=== PATIENT | female | born 1960 | race Caucasian/White ===

== ENCOUNTER 2016-10-02 22:51 | Emergency (ER) | payer OTHER ==
[~2016-10-02] VITALS: Ht 172.7 cm; Wt 60.0 kg
[~2016-10-02 22:51] MED LIST: AMLO-147 PO; AMLO-218; AMLO-218 PO; BACL10TA PO; BACTDS PO; BUPR100T14 PO; BUSP15TA3 PO; CEPH-443 PO; CITA-100 PO; CLON1TAB3 PO; FER325 PO; GABA300C16 PO; HYD25 PO; LEVE-5 PO; LEVO50TA74 PO; METH10SO PO; METH500T8 PO; QUET300T13 PO
[2016-10-02 22:56] VITALS: Ht 172.7 cm; Wt 60.0 kg
--- NOTE | 2016-10-03 01:00 | ERD ---
ER Documentation Chief Complaint Date/Time DATE: 10/03/16 TIME: 00:59 Chief Complaint body aches, homeless HPI This is a 56-year-old female with a document of body aches. Patient denies any trauma. Denies any fevers or chills. Denies any other current complaints. ROS All systems reviewed and are negative except as per history of present illness. Medications Home Meds Active Scripts Clonazepam* (Clonazepam*) 1 Mg Tablet, 1 MG PO BID Y for ANXIETY, #6 TAB Prov:FELY MARTINEZ MD 07/16/15 Hydrochlorothiazide* (Hydrochlorothiazide*) 25 Mg Tab, 25 MG PO DAILY for 14 Days, TAB Prov:FELY MARTINEZ MD 07/16/15 Levetiracetam* (Keppra*) 500 Mg Tablet, 500 MG PO DAILY for 14 Days, TAB Prov:FELY MARTINEZ MD 07/16/15 Amlodipine Besylate* (Norvasc*) 10 Mg Tablet, 10 MG PO DAILY, #14 TAB Prov:FELY MARTINEZ MD 07/16/15 Cephalexin* (Keflex*) 500 Mg Capsule, 500 MG PO QID for 7 Days, CAP Prov:FELY MARTINEZ MD 07/16/15 Sulfamethoxazole-Trimethoprim* (Bactrim* DS) 800-160 Mg Tab, 1 TAB PO BID for 7 Days, TAB Prov:FELY MARTINEZ MD 07/16/15 Amlodipine Besylate* (Amlodipine Besylate*) 10 Mg Tablet, 10 MG PO DAILY, #10 TAB Prov:IESHA FISH DO 04/21/15 Reported Medications Hydrochlorothiazide* (Hydrochlorothiazide*) 25 Mg Tab, 25 MG PO DAILY, TAB 01/10/15 Methocarbamol* (Methocarbamol*) 500 Mg Tablet, 500 MG PO BID, TAB 01/10/15 Levothyroxine Sodium* (Levothyroxine Sodium*) 50 Mcg Tablet, 50 MCG PO AC BREAKFAST, TAB 01/10/15 Buspirone Hcl* (Buspirone Hcl*) 15 Mg Tablet, 30 MG PO QHS, TAB 01/10/15 Ferrous Sulfate* (Ferrous Sulfate*) 325 Mg Tabec, 325 MG PO BID, TAB 01/10/15 Methadone Hcl* (Methadone Hcl*) 10 Mg/5 Ml Solution, 18 MG PO DAILY, ML 01/10/15 Gabapentin* (Gabapentin*) 300 Mg Capsule, 300 MG PO BID, CAP 01/10/15 Clonazepam* (Clonazepam*) 1 Mg Tablet, 1 MG PO BID Y for ANXIETY, TAB 01/10/15 Bupropion Hcl* (Bupropion Hcl*) 100 Mg Tablet, 100 MG PO BID, TAB 01/10/15 Citalopram Hydrobromide (Celexa) 40 Mg Tablet, 40 MG PO DAILY 02/03/12 Quetiapine Fumarate* (Seroquel*) 300 Mg Tablet, 300 MG PO HS 02/03/12 Baclofen (Lioresal) 10 Mg Tab, 10 MG PO TID 02/03/12 Amlodipine Besylate* (Norvasc*) 10 Mg Tablet, DAILY 10/03/10 Allergies Allergies: Coded Allergies: acetaminophen (Verified Allergy, Unknown, RASH, 04/20/15) haloperidol (Verified Allergy, Unknown, 04/20/15) hydrocodone bit (Verified Allergy, Unknown, RASH, 04/20/15) ketorolac tromethamine (Verified Allergy, Unknown, 04/20/15) PMhx/Soc History of Surgery: Yes (TUBAL LIGATION; RIGHT BREAST LUMPECTOMY) Anesthesia Reaction: No Hx Neurological Disorder: Yes (SEIZURES) Hx Respiratory Disorders: No Hx Cardiac Disorders: Yes (HTN, CVA X2) Hx Psychiatric Problems: No Hx Miscellaneous Medical Probl: No Hx Alcohol Use: No Hx Substance Use: Yes (on methadone) Hx Tobacco Use: No Physical Exam Vitals Vital Signs Date Time Temp Pulse Resp B/P Pulse Ox O2 Delivery O2 Flow Rate FiO2 10/02/16 22:56 97.7 88 20 133/80 99 Physical Exam Const: [] Head: Atraumatic Eyes: Normal Conjunctiva ENT: Normal External Ears, Nose and Mouth. Neck: Full range of motion..~ No meningismus. Resp: Clear to auscultation bilaterally Cardio: Regular rate and rhythm, no murmurs Abd: Soft, non tender, non distended. Normal bowel sounds Skin: No petechiae or rashes Back: No midline or flank tenderness Ext: No cyanosis, or edema Neur: Awake and alert Psych: Normal Mood and Affect Procedures/MDM Medical decision-making: Patient here for myalgias, stable for outpatient management. Patient may discharge home. Departure Diagnosis: Primary Impression: Pain Additional Impression: Myalgia Condition: Stable ELSIE HERNANDES Oct 03, 2016 01:00
[2016-10-03] MEDS ORDERED: TRAM50TA2 PO (01:01)
[2016-10-03 01:13] VITALS: BP 160/93; PULSE 93; RESP 18; TEMP 98
[2016-10-03] MEDS ORDERED: AMLODIPINE 2.5 MG TAB PO ONE (01:30)
[2016-10-03] MEDS ORDERED: morphine 10 MG INJ IM ONE (01:30)
[2016-10-03] MEDS ORDERED: AMLODIPINE 10 MG TAB PO ONE (02:00)
== END 2016-10-03 02:14 | disposition home or self-care (01) ==
LOC: E/R 22:51
DX: M79.1 Myalgia (principal); I10 Essential (primary) hypertension
CPT/HCPCS: 96372; J2270; Z7502; Z7610

== ENCOUNTER 2016-10-25 02:59 | Emergency (ER) | payer OTHER ==
[~2016-10-25] VITALS: Ht 162.6 cm; Wt 60.0 kg
[~2016-10-25 02:59] MED LIST changes: +TRAM50TA2 PO
[2016-10-25 03:05] VITALS: Ht 162.6 cm; Wt 60.0 kg
[2016-10-25] MEDS ORDERED: SOD CHLORIDE 0.9% 500 ML IV STA (04:10)
[2016-10-25 04:43] LABS: ADD SCAN DIFF NO
[2016-10-25 04:48] LABS: BASOPHIL # 0.1 10^3/ul (0.0-0.1); EOSINOPHILS # 0.2 10^3/ul (0.0-0.5); EOSINOPHILS % 3.6 % (0.0-7.0); HEMATOCRIT 29.6 % (37.0-47.0); LYMPHOCYTES # 2.6 10^3/ul (0.8-2.9); LYMPHOCYTES % 42.5 % (15.0-51.0); MEAN CORPUSCULAR HEMOGLOBIN 21.9 pg (29.0-33.0); MEAN CORPUSCULAR HGB CONC 30.4 g/dl (32.0-37.0); MEAN PLATELET VOLUME 10.1 fl (7.4-10.4); MONOCYTE # 0.4 10^3/ul (0.3-0.9); MONOCYTES % 6.1 % (0.0-11.0); NEUTROPHIL # 2.9 10^3/ul (1.6-7.5); NEUTROPHILS % 46.6 % (39.0-77.0); PLATELET COUNT 225 10^3/UL (140-415); RED BLOOD COUNT 4.11 10^6/ul (4.20-5.40); RED CELL DISTRIBUTION WIDTH 15.5 % (11.5-14.5); WHITE BLOOD COUNT 6.1 10^3/ul (4.8-10.8)
[2016-10-25 04:53] LABS: ALBUMIN 3.6 g/dl (3.3-4.9)
[2016-10-25 04:54] LABS: POTASSIUM 4.2 mmol/L (3.5-5.1)
[2016-10-25 04:56] LABS: CREATININE 0.71 mg/dl (0.44-1.00)
[2016-10-25 04:57] LABS: ALBUMIN/GLOBULIN RATIO 0.92; CALCIUM 8.9 mg/dl (8.4-10.2); TOTAL PROTEIN 7.5 g/dl (6.1-8.1)
[2016-10-25] MEDS ORDERED: ACETAMINOPHEN 500 MG TAB PO STA (05:11)
[2016-10-25 05:36] VITALS: TEMP 97.8
--- NOTE | 2016-10-25 05:51 | RADRPT ---
PROCEDURE: XR Abdomen. CLINICAL INDICATION: Diffuse abdominal pain TECHNIQUE: Upright and supine abdominal x-rays were obtained. COMPARISON: None. FINDINGS: The bowel gas pattern is nonobstructive. No definite free air is seen. Probable calcified pelvic ph leboliths. Large colonic stool burden is seen. On the upright view, there is a suggestion of multi ple patchy opacity is throughout both lung martines which may be due to hypoventilation. Cardiomegaly is seen. Degenerative change and rightward scoliosis of the spine. IMPRESSION: Large stool burden. Suggestion of patchy opacities throughout both lung martines. PA and lateral vie ws of the chest would be suggested for further evaluation. RPTAT: [facility] Physician Abdelrahman Date Time Electronically viewed and signed by Goldie Roy Physician on 10/25/2016 05:50 LE/
[2016-10-25] MEDS ORDERED: NAPR-688 PO (06:43)
[2016-10-25] MEDS ORDERED: FER325 PO (06:43)
[2016-10-25] MEDS ORDERED: DOCU-144 PO (06:43)
[2016-10-25] MEDS ORDERED: POLY17PO6 PO (06:43)
[2016-10-25] MEDS ORDERED: MAGN296S40 PO (06:43)
--- NOTE | 2016-10-25 06:55 | RADRPT ---
PROCEDURE: XR Chest. CLINICAL INDICATION: Abnormal lung martines cm abdominal x-ray TECHNIQUE: Portable single view of the chest COMPARISON: 04/19/2014 and abdominal x-rays from earlier today FINDINGS: Reduced lung volumes and cardiomegaly. The aorta is slightly ectatic and tortuous. There is pulmon thiago vascular congestion with increased interstitial markings which may be due to a component of inte rstitial edema. Appearance of some slightly ill-defined rounded opacities throughout both lung fiel ds may be due to some alveolar edema although underlying lung nodules cannot be excluded. Largest o f these nodular opacities is in the right mid lung and measures 9 mm. Old left rib fractures are se en. No pleural effusion is seen. IMPRESSION: Probable at least moderate congestive heart failure. Ill-defined nodular opacities throughout both lung martines not seen previously. While this may be due to infection or alveolar edema, follow-up fi lms to document resolution or CT would be suggested. RPTAT: [facility] Physician Abdelrahman Date Time Electronically viewed and signed by Goldie Roy Physician on 10/25/2016 06:55 LE/
[2016-10-25] MEDS ORDERED: AMLO-218 PO (08:15)
[2016-10-25 08:41] VITALS: BP 128/79; PULSE 72; RESP 18
[2016-11-01] MEDS ORDERED: DOCU-144 PO (20:21)
[2016-11-01] MEDS ORDERED: CLON1TAB3 PO (20:21)
[2016-11-01] MEDS ORDERED: AMLO-218 PO (20:21)
[2016-11-01] MEDS ORDERED: FER325 PO (20:21)
--- NOTE | 2016-11-15 17:01 | ERD ---
ER Documentation Chief Complaint Date/Time DATE: 11/15/16 TIME: 16:59 Chief Complaint bib ambulance diffuse abd pain, homeless HPI Patient is a 56-year-old female who presents with abdominal pain. She is homeless. The abdominal pain has been coming and going over the past few days. The patient came to the emergency department for evaluation. She has not had any treatment as of yet. She is requesting refills of her medications as well. ROS All systems reviewed and are negative except as per history of present illness. Medications Home Meds Active Scripts Docusate Sodium* (Colace*) 100 Mg Capsule, 100 MG PO DAILY, #30 CAP Prov:ETELVINA DOMÍNGUEZ PA-C 11/01/16 Clonazepam* (Clonazepam*) 1 Mg Tablet, 1 MG PO DAILY Y for ANXIETY for 14 Days, TAB Prov:ETELVINA DOMÍNGUEZ PA-C 11/01/16 Ferrous Sulfate* (Ferrous Sulfate*) 325 Mg Tabec, 325 MG PO DAILY for 30 Days, TAB Prov:ETELVINA DOMÍNGUEZ PA-C 11/01/16 Amlodipine Besylate* (Norvasc*) 10 Mg Tablet, 10 MG PO DAILY for 30 Days, TAB Prov:ETELVINA DOMÍNGUEZ PA-C 11/01/16 Amlodipine Besylate* (Norvasc*) 10 Mg Tablet, 10 MG PO DAILY, #30 TAB Prov:GLORIA TILLEY MD 10/25/16 Ferrous Sulfate* (Ferrous Sulfate*) 325 Mg Tabec, 325 MG PO DAILY, #21 TAB Prov:IESHA FISH DO 10/25/16 Naproxen* (Naproxen*) 500 Mg Tablet, 500 MG PO BID, #6 TAB Prov:IESHA FISH DO 10/25/16 Docusate Sodium* (Colace*) 100 Mg Capsule, 100 MG PO TID, #30 CAP Prov:IESHA FISH DO 10/25/16 Polyethylene Glycol* (Miralax*) 17 Gm Powd.pack, 17 GM PO DAILY, #7 Prov:IESHA FISH DO 10/25/16 Magnesium Citrate* (Magnesium Citrate*) 296 Ml Solution, 296 ML PO ONCE, #1 BOTTLE Prov:IESHA FISH DO 10/25/16 Tramadol HCl (Tramadol HCl) 50 Mg Tablet, 50 MG PO Q4 Y for PAIN, #10 TAB Prov:ELSIE HERNANDESRobles 10/03/16 Clonazepam* (Clonazepam*) 1 Mg Tablet, 1 MG PO BID Y for ANXIETY, #6 TAB Prov:FELY MARTINEZ MD 07/16/15 Hydrochlorothiazide* (Hydrochlorothiazide*) 25 Mg Tab, 25 MG PO DAILY for 14 Days, TAB Prov:FELY MARTINEZ MD 07/16/15 Levetiracetam* (Keppra*) 500 Mg Tablet, 500 MG PO DAILY for 14 Days, TAB Prov:FELY MARTINEZ MD 07/16/15 Amlodipine Besylate* (Norvasc*) 10 Mg Tablet, 10 MG PO DAILY, #14 TAB Prov:FELY MARTINEZ MD 07/16/15 Cephalexin* (Keflex*) 500 Mg Capsule, 500 MG PO QID for 7 Days, CAP Prov:FLEY MARTINEZ MD 07/16/15 Sulfamethoxazole-Trimethoprim* (Bactrim* DS) 800-160 Mg Tab, 1 TAB PO BID for 7 Days, TAB Prov:FELY MARTINEZ MD 07/16/15 Amlodipine Besylate* (Amlodipine Besylate*) 10 Mg Tablet, 10 MG PO DAILY, #10 TAB Prov:IESHA FISH DO 04/21/15 Reported Medications Hydrochlorothiazide* (Hydrochlorothiazide*) 25 Mg Tab, 25 MG PO DAILY, TAB 01/10/15 Methocarbamol* (Methocarbamol*) 500 Mg Tablet, 500 MG PO BID, TAB 01/10/15 Levothyroxine Sodium* (Levothyroxine Sodium*) 50 Mcg Tablet, 50 MCG PO AC BREAKFAST, TAB 01/10/15 Buspirone Hcl* (Buspirone Hcl*) 15 Mg Tablet, 30 MG PO QHS, TAB 01/10/15 Ferrous Sulfate* (Ferrous Sulfate*) 325 Mg Tabec, 325 MG PO BID, TAB 01/10/15 Methadone Hcl* (Methadone Hcl*) 10 Mg/5 Ml Solution, 18 MG PO DAILY, ML 01/10/15 Gabapentin* (Gabapentin*) 300 Mg Capsule, 300 MG PO BID, CAP 01/10/15 Clonazepam* (Clonazepam*) 1 Mg Tablet, 1 MG PO BID Y for ANXIETY, TAB 01/10/15 Bupropion Hcl* (Bupropion Hcl*) 100 Mg Tablet, 100 MG PO BID, TAB 01/10/15 Citalopram Hydrobromide (Celexa) 40 Mg Tablet, 40 MG PO DAILY 02/03/12 Quetiapine Fumarate* (Seroquel*) 300 Mg Tablet, 300 MG PO HS 02/03/12 Baclofen (Lioresal) 10 Mg Tab, 10 MG PO TID 02/03/12 Amlodipine Besylate* (Norvasc*) 10 Mg Tablet, DAILY 10/03/10 Allergies Allergies: Coded Allergies: acetaminophen (Verified Allergy, Unknown, RASH, 04/20/15) haloperidol (Verified Allergy, Unknown, 04/20/15) hydrocodone bit (Verified Allergy, Unknown, RASH, 04/20/15) ketorolac tromethamine (Verified Allergy, Unknown, 04/20/15) PMhx/Soc History of Surgery: Yes (TUBAL LIGATION; RIGHT BREAST LUMPECTOMY) Anesthesia Reaction: No Hx Neurological Disorder: Yes (SEIZURES) Hx Respiratory Disorders: No Hx Cardiac Disorders: Yes (HTN, CVA X2) Hx Psychiatric Problems: No Hx Miscellaneous Medical Probl: No (past IV drug abuse) Hx Alcohol Use: No Hx Substance Use: Yes (on methadone) Hx Tobacco Use: No Smoking Status: Never smoker FmHx Family History: No diabetes Physical Exam Physical Exam Const: Mild distress Head: Atraumatic Eyes: Normal Conjunctiva ENT: Normal External Ears, Nose and Mouth. Neck: Full range of motion..~ No meningismus. Resp: Clear to auscultation bilaterally Cardio: Regular rate and rhythm, no murmurs Abd: Soft, diffuse tenderness to palpation without rebound or guarding Skin: No petechiae or rashes Back: No midline or flank tenderness Ext: No cyanosis, or edema Neur: Awake and alert Psych: Normal Mood and Affect Results 24 hrs Laboratory Tests Test 10/25/16 04:30 White Blood Count 6.110^3/ul Red Blood Count 4.1110^6/ul Hemoglobin 9.0g/dl Hematocrit 29.6% Mean Corpuscular Volume 72.0fl Mean Corpuscular Hemoglobin 21.9pg Mean Corpuscular Hemoglobin Concent 30.4g/dl Red Cell Distribution Width 15.5% Platelet Count 21194^3/UL Mean Platelet Volume 10.1fl Neutrophils % 46.6% Lymphocytes % 42.5% Monocytes % 6.1% Eosinophils % 3.6% Basophils % 1.0% Nucleated Red Blood Cells % 0.0/100WBC Neutrophils # 2.910^3/ul Lymphocytes # 2.610^3/ul Monocytes # 0.410^3/ul Eosinophils # 0.210^3/ul Basophils # 0.110^3/ul Nucleated Red Blood Cells # 0.010^3/ul Sodium Level 142mmol/L Potassium Level 4.2mmol/L Chloride Level 103mmol/L Carbon Dioxide Level 31mmol/L Anion Gap 12 Blood Urea Nitrogen 24mg/dl Creatinine 0.71mg/dl Glucose Level 102mg/dl Calcium Level 8.9mg/dl Total Bilirubin 0.0mg/dl Direct Bilirubin 0.00mg/dl Indirect Bilirubin 0.0mg/dl Aspartate Amino Transf (AST/SGOT) 30IU/L Alanine Aminotransferase (ALT/SGPT) 32IU/L Alkaline Phosphatase 78IU/L Total Protein 7.5g/dl Albumin 3.6g/dl Globulin 3.90g/dl Albumin/Globulin Ratio 0.92 Lipase 97U/L Current Medications Medications (Trade) Dose Ordered Sig/Dorina Route PRN Reason Start Time Stop Time Status Last Admin Dose Admin Sodium Chloride (NS) 500 ml @ 500 mls/hr Q1H STAT IV 10/25/16 04:10 10/25/16 05:09 DC 10/25/16 04:37 Acetaminophen (Tylenol Tab) 1,000 mg ONCE STAT PO 10/25/16 05:11 10/25/16 05:12 DC 10/25/16 05:17 Procedures/MDM X-ray of the abdomen shows constipation per radiology. X-ray of the chest shows cardiomegaly per radiology. Patient is a 56-year-old female presents with abdominal pain. She was found to have constipation. At this point I doubt appendicitis, cholecystitis, pancreatitis, or bowel obstruction. I believe outpatient management is appropriate at this time. I do not believe she requires admission the hospital. Her laboratory studies are basically normal other than anemia but she does not require transfusion at this time. The patient will need to follow- up closely with her primary doctor within 24 hours and can return if symptoms worsen. Departure Diagnosis: Primary Impression: Anemia Anemia type: unspecified type Qualified Code: D64.9 - Anemia, unspecified type Additional Impressions: Abdominal pain Abdominal location: generalized Qualified Code: R10.84 - Generalized abdominal pain Constipation Constipation type: unspecified constipation type Qualified Code: K59.00 - Constipation, unspecified constipation type Condition: Stable Patient Instructions: Abdominal Pain, Anemia, Constipation (Adult) Referrals: COUNTS INCLUDE 234 BEDS AT THE [facility] YOU HAVE RECEIVED A MEDICAL SCREENING EXAM AND THE RESULTS INDICATE THAT YOU DO NOT HAVE A CONDITION THAT REQUIRES URGENT TREATMENT IN THE EMERGENCY DEPARTMENT. FURTHER EVALUATION AND TREATMENT OF YOUR CONDITION CAN WAIT UNTIL YOU ARE SEEN IN YOUR DOCTORS OFFICE WITHIN THE NEXT 1-2 DAYS. IT IS YOUR RESPONSIBILITY TO MAKE AN APPOINTMENT FOR FOLOW-UP CARE. IF YOU HAVE A PRIMARY DOCTOR --you should call your primary doctor and schedule an appointment IF YOU DO NOT HAVE A PRIMARY DOCTOR YOU CAN CALL OUR PHYSICIAN REFERRAL HOTLINE AT IF YOU CAN NOT AFFORD TO SEE A PHYSICIAN YOU CAN CHOSE FROM THE FOLLOWING [facility] [address] [facility] [address] [facility] [address] [facility] [address] [facility] [address] [facility] [facility] [address] [facility]. [facility] YOU HAVE RECEIVED A MEDICAL SCREENING EXAM AND THE RESULTS INDICATE THAT YOU DO NOT HAVE A CONDITION THAT REQUIRES URGENT TREATMENT IN THE EMERGENCY DEPARTMENT. FURTHER EVALUATION AND TREATMENT OF YOUR CONDITION CAN WAIT UNTIL YOU ARE SEEN IN YOUR DOCTORS OFFICE WITHIN THE NEXT 1-2 DAYS. IT IS YOUR RESPONSIBILITY TO MAKE AN APPOINTMENT FOR FOLOW-UP CARE. IF YOU HAVE A PRIMARY DOCTOR --you should call your primary doctor and schedule and appointment IF YOU DO NOT HAVE A PRIMARY DOCTOR YOU CAN CALL OUR PHYSICIAN REFERRAL HOTLINE AT . IF YOU CAN NOT AFFORD TO SEE A PHYSICIAN YOU CAN CHOSE FROM THE FOLLOWING [facility] INSTITUTIONS: [facility] [address] [place] [address] [facility] [address] [place] [address] [facility] [address] [place] [address] Additional Instructions: Call your primary care doctor TOMORROW for an appointment during the next 2-3 days.See the doctor sooner or return here if your condition worsens before your appointment time. GLORIA TILLEY MD Nov 15, 2016 17:01
== END 2016-10-25 08:43 | disposition home or self-care (01) ==
LOC: E/R 02:59
DX: D64.9 Anemia, unspecified (principal); R10.84 Generalized abdominal pain; K59.00 Constipation, unspecified; I10 Essential (primary) hypertension
CPT/HCPCS: 36415; 71010; 74010; 80053; 83690; 85025; J7040; Z7502; Z7610

== ENCOUNTER → 2016-10-29 | Emergency (ER) | payer SELFPAY ==
[~2016-10-29] VITALS: Wt 62.0 kg
[~2016-10-29] MED LIST changes: +DOCU-144 PO; +MAGN296S40 PO; +NAPR-688 PO; +POLY17PO6 PO
== END | disposition left against medical advice (07) ==
LOC: E/R 12:48
DX: Z53.21 Procedure and treatment not carried out due to patient leaving prior to being seen by health care provider (principal)

== ENCOUNTER → 2016-11-01 | Emergency (ER) | payer OTHER ==
[~2016-11-01] VITALS: Ht 157.5 cm; Wt 54.0 kg
[~2016-11-01] MED LIST changes: +AMLODIPINE 10 MG TAB PO ONE; +IBUPROFEN 600 MG TAB PO ONE
[2016-11-01 16:12] VITALS: Ht 157.5 cm; Wt 54.0 kg
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
--- NOTE | 2016-11-01 19:57 | RADRPT ---
PROCEDURE: XR Hand. CLINICAL INDICATION: Pain, trauma. TECHNIQUE: Three views of the right hand were obtained. COMPARISON: No prior studies are available for comparison. FINDINGS: There is no acute fracture or dislocation. Query prior postsurgical changes of the trapezium resect ion with cortical irregularity and osseous spurring at the base of the first metacarpal, trapezoid, and scaphoid. There is joint space narrowing with osseous spurring within the scaphoid articulation with the trapezoid as well as at the second carpometacarpal joint. There is also osseous spurring within the fifth carpometacarpal joint. There is increased flexion at the third proximal interphalangeal joint. There is also osseous spurr ing and joint space narrowing within the fifth proximal interphalangeal joint. IMPRESSION: 1. Postsurgical changes suggestive of resection of the trapezium with degenerative changes at the t riscaphe joint and second carpometacarpal joint. 2. Increased flexion at the third proximal interphalangeal joint. 3. Degenerative changes within the fifth proximal interphalangeal joint. 4. No acute fracture. .Kylah Aviles MD, MD Date Time Electronically viewed and signed by .Kylah Aviles MD, on 11/01/2016 20:01 .T/
[2016-11-01 21:01] VITALS: BP 165/110; PULSE 87; RESP 18; TEMP 98.7
== END | disposition home or self-care (01) ==
LOC: FTE 15:53
DX: R51 Headache (principal); I10 Essential (primary) hypertension; F11.20 Opioid dependence, uncomplicated; G40.909 Epilepsy, unspecified, not intractable, without status epilepticus; S69.91XA Unspecified injury of right wrist, hand and finger(s), initial encounter; M19.041 Primary osteoarthritis, right hand; D50.9 Iron deficiency anemia, unspecified; W50.0XXA Accidental hit or strike by another person, initial encounter; Y92.89 Other specified places as the place of occurrence of the external cause; Z76.0 Encounter for issue of repeat prescription
CPT/HCPCS: 73130; Z7502; Z7610

== ENCOUNTER 2016-11-18 02:29 | Emergency (ER) | payer OTHER ==
[~2016-11-18] VITALS: Ht 154.9 cm; Wt 46.3 kg
[~2016-11-18 02:29] MED LIST changes: -AMLODIPINE 10 MG TAB PO ONE; -IBUPROFEN 600 MG TAB PO ONE
[2016-11-18 02:48] VITALS: Ht 154.9 cm; Wt 46.3 kg
[2016-11-18] MEDS ORDERED: KETOROLAC 60 MG INJ IM STA (02:57)
[2016-11-18] MEDS ORDERED: NAPR-688 PO (03:34)
[2016-11-18] MEDS ORDERED: METH500T PO (03:34)
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
[2016-11-18 05:08] VITALS: BP 161/107; PULSE 97; RESP 20
== END 2016-11-18 05:26 | disposition home or self-care (01) ==
LOC: E/R 02:29
DX: S30.0XXA Contusion of lower back and pelvis, initial encounter (principal); I10 Essential (primary) hypertension; X58.XXXA Exposure to other specified factors, initial encounter; Y92.9 Unspecified place or not applicable; Z87.891 Personal history of nicotine dependence
CPT/HCPCS: 96372; J1885; Z7502

== ENCOUNTER 2017-01-02 14:46 | Emergency (ER) | payer OTHER ==
[~2017-01-02] VITALS: Wt 55.0 kg
[~2017-01-02 14:46] MED LIST changes: +METH500T PO
[2017-01-02] MEDS ORDERED: OLANZAPINE (ODT) 5 MG TAB ODT ONE (15:30)
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
== END 2017-01-02 15:23 | disposition left against medical advice (07) ==
LOC: E/R 14:46
DX: R10.84 Generalized abdominal pain (principal); I10 Essential (primary) hypertension; I25.10 Atherosclerotic heart disease of native coronary artery without angina pectoris; T74.21XA Adult sexual abuse, confirmed, initial encounter

== ENCOUNTER 2017-01-03 14:45 | Emergency (ER) | payer OTHER ==
[~2017-01-03] VITALS: Ht 149.9 cm; Wt 64.0 kg
[2017-01-03 14:54] VITALS: Ht 149.9 cm; Wt 64.0 kg
[2017-01-03 15:56] VITALS: BP 194/113; PULSE 88; RESP 18
[2017-01-03] MEDS ORDERED: NICARDipine HCL 30 MG CAPSULE PO ONE (16:00)
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
== END 2017-01-03 16:05 | disposition home or self-care (01) ==
LOC: E/R 14:45
DX: I10 Essential (primary) hypertension (principal)
CPT/HCPCS: Z7502; Z7610; 99283

== ENCOUNTER 2017-05-05 16:29 | Emergency (ER) | payer OTHER ==
[~2017-05-05] VITALS: Ht 152.4 cm; Wt 67.0 kg
[2017-05-05 16:33] VITALS: Ht 152.4 cm; Wt 67.0 kg
[2017-05-05] MEDS ORDERED: CLON-412 PO (18:29)
[2017-05-05] MEDS ORDERED: GABA300C PO (18:29)
[2017-05-05] MEDS ORDERED: AMLO5TAB4 PO (18:29)
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
== END 2017-05-05 19:07 | disposition home or self-care (01) ==
LOC: E/R 16:29
DX: Z76.0 Encounter for issue of repeat prescription (principal); I10 Essential (primary) hypertension
CPT/HCPCS: 99281

== ENCOUNTER 2017-05-09 22:56 | Emergency (ER) | payer OTHER ==
[~2017-05-09] VITALS: Ht 167.6 cm; Wt 68.0 kg
[~2017-05-09 22:56] MED LIST changes: +AMLO5TAB4 PO; +CLON-412 PO; +GABA300C PO; -HYD25 PO; +HYDR25TA6 PO
[2017-05-09 23:05] VITALS: Ht 167.6 cm; Wt 68.0 kg
[2017-05-10 01:00] VITALS: BP 149/100; PULSE 82; RESP 18; TEMP 98.1
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
[2017-05-10] MEDS ORDERED: IBUP-1542 PO (01:48)
[2017-05-10] MEDS ORDERED: IBUPROFEN 600 MG TAB PO ONE (02:00)
[2017-05-10] MEDS ORDERED: HYDR25TA6 PO (12:50)
== END 2017-05-10 02:20 | disposition home or self-care (01) ==
LOC: E/R 22:56
DX: M79.1 Myalgia (principal); I10 Essential (primary) hypertension; F17.210 Nicotine dependence, cigarettes, uncomplicated
CPT/HCPCS: Z7502; Z7610; 99283

== ENCOUNTER 2017-05-10 11:06 | Emergency (ER) | payer OTHER ==
[~2017-05-10] VITALS: Wt 68.0 kg
[~2017-05-10 11:06] MED LIST changes: +HYD25 PO; -HYDR25TA6 PO; +IBUP-1542 PO
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
--- NOTE | 2017-05-10 12:16 | RADRPT ---
PROCEDURE: CT brain without contrast CLINICAL INDICATION: head trauma/injury TECHNIQUE: CT of the brain without contrast performed on a multidetector CT scanner, with multiplan ar reformats. One or more of the following dose reduction techniques were used: Automated exposure control, adjustment in mA and / or kV according to patient size, use of iterative reconstructive arleen hnique. CTDIvol = 45/42 mGy; DLP = 90/540 mGy-cm. COMPARISON: CT brain 11/20/2015 FINDINGS: Patient motion related artifacts mildly limit evaluation. No acute intracranial hemorrhage is identi fied. No extra-axial fluid collection is seen. There is no mass effect. No midline shift is identified. The ventricles and sulci are mildly enlarged compatible with volume loss. There are mild areas of hypodensity in the periventricular - deep white matter which are nonspecific but suggestive of chronic small vessel ischemic changes. Visualized arauz-white junctions appear pre served. Calvarium and skull base are intact. Mastoid air cells and imaged paranasal sinuses grossly clear. IMPRESSION: 1. Mildly limited evaluation due to motion, without acute intracranial pathology identified. 2. Mild volume loss, with mild chronic small vessel ischemic changes. RPTAT: VV .Link Torres MD, MD Date Time Electronically viewed and signed by .Link Torres MD, MD on 05/10/2017 12:16 .O/
[2017-05-10] MEDS ORDERED: HYD25 PO (12:50)
[2017-05-10] MEDS ORDERED: ACETAMINOPHEN 325 MG TAB PO ONE (13:00)
== END 2017-05-10 14:23 | disposition home or self-care (01) ==
LOC: E/R 11:06
DX: S09.90XA Unspecified injury of head, initial encounter (principal); I10 Essential (primary) hypertension; R93.0 Abnormal findings on diagnostic imaging of skull and head, not elsewhere classified; R40.2142 Coma scale, eyes open, spontaneous, at arrival to emergency department; R40.2252 Coma scale, best verbal response, oriented, at arrival to emergency department; R40.2362 Coma scale, best motor response, obeys commands, at arrival to emergency department; Y04.8XXA Assault by other bodily force, initial encounter
CPT/HCPCS: 70450; Z7502; Z7610

== ENCOUNTER 2017-05-17 17:22 | Emergency (ER) | payer SELFPAY ==
[~2017-05-17] VITALS: Wt 65.0 kg
[~2017-05-17 17:22] MED LIST changes: -HYD25 PO; +HYDR25TA6 PO
== END 2017-05-17 22:17 | disposition left against medical advice (07) ==
LOC: E/R 17:22
DX: Z53.21 Procedure and treatment not carried out due to patient leaving prior to being seen by health care provider (principal)

== ENCOUNTER 2017-05-20 11:34 | Inpatient (IN) | payer OTHER ==
[~2017-05-20] VITALS: Ht 157.5 cm; Wt 59.0 kg
--- NOTE | 2017-05-20 14:10 | ERA ---
ER Documentation Chief Complaint Date/Time DATE: 05/20/17 TIME: On arrival Chief Complaint ALOC HPI The patient is a 57-year-old female, presenting to the ER from [facility] pharmacy because she was found to have altered level of consciousness. She is somnolent but arousable, complains of abdominal pain. She is a very poor historian. 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 Past medical history: Seizure disorder, hypertension, history of CVA Past surgical history: Tubal ligation, right breast lumpectomy ROS All systems reviewed and are negative except as per history of present illness. Medications Home Meds Active Scripts Hydrochlorothiazide* (Hydrochlorothiazide*) 25 Mg Tab, 25 MG PO DAILY, #30 TAB Prov:FELY MARTINEZ MD 05/10/17 Ibuprofen* (Motrin*) 600 Mg Tab, 600 MG PO Q6H Y for PAIN, #20 TAB Prov:DARRYL MCCANN MD 05/10/17 Gabapentin* (Neurontin*) 300 Mg Capsule, 300 MG PO DAILY for 30 Days, CAP Prov:FELY MARTINEZ MD 05/05/17 Clonazepam* (Klonopin*) 1 Mg Tablet, 1 MG PO Q8H Y for ANXIETY, #10 TAB Prov:FELY MARTINEZ MD 05/05/17 Amlodipine Besylate* (Norvasc*) 5 Mg Tablet, 10 MG PO DAILY, #60 TAB Prov:FELY MARTINEZ MD 05/05/17 Discontinued Reported Medications Hydrochlorothiazide* (Hydrochlorothiazide*) 25 Mg Tab, 25 MG PO DAILY, TAB 01/10/15 Methocarbamol* (Methocarbamol*) 500 Mg Tablet, 500 MG PO BID, TAB 01/10/15 Levothyroxine Sodium* (Levothyroxine Sodium*) 50 Mcg Tablet, 50 MCG PO AC BREAKFAST, TAB 01/10/15 Buspirone Hcl* (Buspirone Hcl*) 15 Mg Tablet, 30 MG PO QHS, TAB 01/10/15 Ferrous Sulfate* (Ferrous Sulfate*) 325 Mg Tabec, 325 MG PO BID, TAB 01/10/15 Methadone Hcl* (Methadone Hcl*) 10 Mg/5 Ml Solution, 18 MG PO DAILY, ML 5/18/15 Gabapentin* (Gabapentin*) 300 Mg Capsule, 300 MG PO BID, CAP 01/10/15 Clonazepam* (Clonazepam*) 1 Mg Tablet, 1 MG PO BID Y for ANXIETY, TAB 01/10/15 Bupropion Hcl* (Bupropion Hcl*) 100 Mg Tablet, 100 MG PO BID, TAB 01/10/15 Citalopram Hydrobromide (Celexa) 40 Mg Tablet, 40 MG PO DAILY 02/03/12 Quetiapine Fumarate* (Seroquel*) 300 Mg Tablet, 300 MG PO HS 02/03/12 Baclofen (Lioresal) 10 Mg Tab, 10 MG PO TID 02/03/12 Amlodipine Besylate* (Norvasc*) 10 Mg Tablet, DAILY 10/03/10 Discontinued Scripts Naproxen* (Naproxen*) 500 Mg Tablet, 500 MG PO BID Y for PAIN, #14 TAB Prov:ABEIESHA DO 11/18/16 Methocarbamol* (Robaxin*) 500 Mg Tab, 500 MG PO Q8, #14 TAB Prov:IESHA FISH DO 11/18/16 Docusate Sodium* (Colace*) 100 Mg Capsule, 100 MG PO DAILY, #30 CAP Prov:ETELVINA DOMÍNGUEZC 11/01/16 Clonazepam* (Clonazepam*) 1 Mg Tablet, 1 MG PO DAILY Y for ANXIETY for 14 Days, TAB Prov:ETELVINA DOMÍNGUEZC 11/01/16 Ferrous Sulfate* (Ferrous Sulfate*) 325 Mg Tabec, 325 MG PO DAILY for 30 Days, TAB Prov:ETELVINA DOMÍNGUEZC 11/01/16 Amlodipine Besylate* (Norvasc*) 10 Mg Tablet, 10 MG PO DAILY for 30 Days, TAB Prov:ETELVINA DOMÍNGUEZ-C 11/01/16 Amlodipine Besylate* (Norvasc*) 10 Mg Tablet, 10 MG PO DAILY, #30 TAB Prov:GLORIA TILLEY MD 10/25/16 Ferrous Sulfate* (Ferrous Sulfate*) 325 Mg Tabec, 325 MG PO DAILY, #21 TAB Prov:IESHA FISH DO 10/25/16 Naproxen* (Naproxen*) 500 Mg Tablet, 500 MG PO BID, #6 TAB Prov:IESHA FISH DO 10/25/16 Docusate Sodium* (Colace*) 100 Mg Capsule, 100 MG PO TID, #30 CAP Prov:IESHA FISH DO 10/25/16 Polyethylene Glycol* (Miralax*) 17 Gm Powd.pack, 17 GM PO DAILY, #7 Prov:IESHA FISH DO 10/25/16 Magnesium Citrate* (Magnesium Citrate*) 296 Ml Solution, 296 ML PO ONCE, #1 BOTTLE Prov:IESHA FISH 10/25/16 Tramadol HCl (Tramadol HCl) 50 Mg Tablet, 50 MG PO Q4 Y for PAIN, #10 TAB Prov:ELSIE HERNANDES 10/03/16 Clonazepam* (Clonazepam*) 1 Mg Tablet, 1 MG PO BID Y for ANXIETY, #6 TAB Prov:FELY MARTINEZ MD 07/16/15 Hydrochlorothiazide* (Hydrochlorothiazide*) 25 Mg Tab, 25 MG PO DAILY for 14 Days, TAB Prov:FELY MARTINEZ MD 07/16/15 Levetiracetam* (Keppra*) 500 Mg Tablet, 500 MG PO DAILY for 14 Days, TAB Prov:FELY MARTINEZ MD 07/16/15 Amlodipine Besylate* (Norvasc*) 10 Mg Tablet, 10 MG PO DAILY, #14 TAB Prov:FELY MARTINEZ MD 07/16/15 Cephalexin* (Keflex*) 500 Mg Capsule, 500 MG PO QID for 7 Days, CAP Prov:FELY MARTINEZ MD 07/16/15 Sulfamethoxazole-Trimethoprim* (Bactrim* DS) 800-160 Mg Tab, 1 TAB PO BID for 7 Days, TAB Prov:FELY MARTINEZ MD 07/16/15 Amlodipine Besylate* (Amlodipine Besylate*) 10 Mg Tablet, 10 MG PO DAILY, #10 TAB Prov:IESHA FISH 04/21/15 Allergies Allergies: Coded Allergies: acetaminophen (Verified Allergy, Unknown, RASH, 04/20/15) haloperidol (Verified Allergy, Unknown, 04/20/15) hydrocodone bit (Verified Allergy, Unknown, RASH, 04/20/15) ketorolac tromethamine (Verified Allergy, Unknown, 04/20/15) PMhx/Soc History of Surgery: No Anesthesia Reaction: No Hx Neurological Disorder: No Hx Respiratory Disorders: No Hx Cardiac Disorders: No Hx Psychiatric Problems: No Hx Miscellaneous Medical Probl: No Hx Alcohol Use: No Hx Substance Use: No Hx Tobacco Use: No Physical Exam Vitals Vital Signs Date Time Temp Pulse Resp B/P Pulse Ox O2 Delivery O2 Flow Rate FiO2 05/20/17 15:31 72 14 152/110 96 Room Air Physical Exam Const: No acute distress.Somnolent Head: Atraumatic. Eyes: Normal Conjunctiva. ENT: Normal External Ears, Nose and Mouth. Neck: Full range of motion. No meningismus. Resp: Clear to auscultation bilaterally.Tachypneic Cardio: Regular Tachycardic Abd: Soft, non distended, normal bowel sounds, non tender. Skin: No petechiae or rashes. Back: No midline or flank tenderness. Ext: No cyanosis, or edema. Neur: Limited due to her condition Psych: Unable to perform due to her condition Results 24 hrs Laboratory Tests Test 05/20/17 14:50 Lactic Acid Level 1.1mmol/L Current Medications Medications (Trade) Dose Ordered Sig/Dorina Route PRN Reason Start Time Stop Time Status Last Admin Dose Admin Vancomycin HCl (Vancocin) 250 ml @ 125 mls/hr ONCE IVPB 05/20/17 15:00 05/20/17 16:59 05/20/17 14:49 Procedures/MDM Urinalysis, lactate, urine drug screens are pending EKG: Read by emergency physician Rate/Rhythm: Normal Sinus Rhythm 84 beats/min QRS, ST, T-waves: No ST elevation, no T inversion , Prolonged QT Impression: Abnormal EKG PROCEDURE: XR Chest. CLINICAL INDICATION: Altered mental status. TECHNIQUE: Single frontal view. COMPARISON: None. FINDINGS: There is mild patchy air space disease bilaterally in the mid and lower lung zones. The lungs are otherwise clear. The heart is enlarged. There is no pleural effusion. There is no pneumothorax. IMPRESSION: 1. Mild patchy air space disease bilaterally in the mid and lower lung zones. This may indicate multifocal pneumonia. Clinical correlation advised. 2. Cardiomegaly. RPTAT: QQ .Marky Borden MD, MD Date Time Electronically viewed and signed by .Marky Borden MD, on 05/20/2017 12:19 .R/ CC: DARRYL MCCANN MD PROCEDURE: CT Brain without contrast. CLINICAL INDICATION: Altered mental status TECHNIQUE: A CT of the brain was performed on a multidetector CT scanner utilizing axial sections from the skull base through the vertex without contrast. Images were reviewed on a high-resolution PACS workstation. Exam CTDI = 44.77 mGy and the DLP = 630.20 mGy-cm. One or more of the following dose reduction techniques were used: Automated exposure control Adjustment of the mA and/or kV according to patient size. Use of iterative reconstruction technique. COMPARISON: None available FINDINGS: Mild diffuse cerebral and cerebellar atrophy is present. There is proportionate dilatation of the ventricular system and sulci in a symmetric fashion. There is prominence of the extraaxial spaces secondary to atrophy. There is no evidence of intracranial hemorrhage, mass effect or midline shift. There is age indeterminate hypoattenuation in the right lentiform nucleus. No abnormal intra-axial or extra-axial fluid collections are seen. The density of the brain is normal and the arauz/white matter differentiation is well preserved. The osseous structures are unremarkable. Paranasal sinuses are clear. IMPRESSION: 1. No intracranial hemorrhage, mass effect or midline shift. 2. Age indeterminate hypoattenuation in the right lentiform nucleus. Recommend MRI brain for further evaluation. 3. Mild generalized volume loss. RPTAT: BB .Jessica Moran MD, MD Date Time Electronically viewed and signed by .Jessica Moran MD, on 05/20/2017 13:16 .O/ CC: DARRYL MCCANN MD PROCEDURE: CT Abdomen and Pelvis without intravenous contrast. CLINICAL INDICATION: Abdominal pain . TECHNIQUE: CT scan of the abdomen and pelvis without intravenous contrast was performed on a multi-slice CT scanner. Coronal and sagittal reformatted images were obtained from the axial source images. Images were reviewed on a high- resolution PACS workstation. Total DLP = 571.4 mGy-cm. CTDIvol = 9.9 mGy. One or more of the following dose reduction techniques were used: Automated exposure control. Adjustment of the mA and/or kV according to patient size. Use of iterative reconstruction technique. COMPARISON: None. FINDINGS: CT abdomen and pelvis: The lung bases are clear. The heart size mildly enlarged. The liver is normal in size and density without focal mass or intrahepatic biliary dilatation. The spleen is normal in size and homogeneous in density. The pancreas as visualized is normal. The gallbladder shows no evidence of stones or distension . The adrenal glands are normal. The kidneys are symmetrically unremarkable. No urolithiasis, obstructive uropathy, or solid mass lesion is seen. The stomach is partially collapsed, but is grossly unremarkable. The small bowels are unremarkable. The colon and rectum are normal. There is mild retained feces throughout the colon. There is no evidence of appendicitis or diverticulitis. The pelvic organs are normal. The bladder is normal. There is no abdominal or pelvic adenopathy, free fluid, free air, mass or mesenteric inflammation. The aorta is normal in caliber with calcific atherosclerosis . The osseous structures showing scoliosis and degenerative enthesopathy of the spine. No osteolytic or osteoblastic lesions are identified. There is old healed fracture of the left pubic bone. No osteolytic or osteoblastic lesions are seen.. Lack of IV and oral contrast, paucity of peritoneal fat, and patient's arms overlying the anterior abdomen limits sensitivity of exam. IMPRESSION: 1. Mild cardiomegaly. 2. Retained feces throughout colon suggesting constipation. 3. Scoliosis and degenerative enthesopathy of the spine. 4. Otherwise unremarkable noncontrast CT abdomen and pelvis without acute pathology identified with multiple factors limiting sensitivity as described above.. RPTAT: GG .Russ Zendejas MD, Date Time Electronically viewed and signed by .Russ Zendejas MD, on 05/20/2017 13:54 .L/ CC: DARRYL MCCANN MD MEDICAL MAKING DECISION: The patient is a 57-year-old female, presenting with acute encephalopathy, acute pneumonia, acute hypokalemia. She was treated with vancomycin IV, cefepime IV for acute pneumonia and potassium chloride 40 mEq IV for acute hypokalemia with good response The differential diagnoses considered include but are not limited to medication non-compliance, alcohol intoxication or withdrawal, drug intoxication or withdrawal, endocrine disorder, trauma, CVA, tumor, metabolic encephalopathy, septic encephalopathy. Critical Care: Time: 35 minutes excluding all billable procedures. Treatments/Evaluations: Close monitoring and treatment of unstable vital signs, cardiorespiratory, and neurologic status, while maintaining tight balance of fluid, respiratory, and cardiac interventions. Departure Diagnosis: Primary Impression: Encephalopathy Additional Impressions: Pneumonia Acute hypokalemia Condition: Stable Comments I discussed the findings with the patient. I discussed the patient with the on- call hospitalist Dr. Castanon at 3:50 PM who was made aware of the lab, the treatment , the patient condition. The patient is admitted to Telemetry The patient's blood pressure was elevated (>120/80) but appears stable without evidence of hypertension emergency or urgency. The patient was counseled about the risks of hypertension and urged to pursue outpatient monitoring and therapy within a week with their primary care physician. DARRYL MCCANN MD May 20, 2017 14:10
[2017-05-20] MEDS ORDERED: VANCOMYCIN 1 GM (PMX) 250 ML IVPB SCH ×2 (15:00→19:30)
[2017-05-20 16:35] LABS: BASOPHIL # 0.1 10^3/ul (0.0-0.1); EOSINOPHILS # 0.3 10^3/ul (0.0-0.5); HEMATOCRIT 29.5 % (37.0-47.0); HEMOGLOBIN 9.2 g/dl (12.0-16.0); LYMPHOCYTES # 1.8 10^3/ul (0.8-2.9); LYMPHOCYTES % 36.3 % (15.0-51.0); MEAN CORPUSCULAR HEMOGLOBIN 22.3 pg (29.0-33.0); MEAN CORPUSCULAR HGB CONC 31.2 g/dl (32.0-37.0); MEAN CORPUSCULAR VOLUME 71.6 fl (82.0-101.0); MEAN PLATELET VOLUME 9.1 fl (7.4-10.4); MONOCYTE # 0.3 10^3/ul (0.3-0.9); MONOCYTES % 5.6 % (0.0-11.0); NEUTROPHIL # 2.6 10^3/ul (1.6-7.5); NEUTROPHILS % 51.7 % (39.0-77.0); PLATELET COUNT 196 10^3/UL (140-415); RED BLOOD COUNT 4.12 10^6/ul (4.20-5.40); RED CELL DISTRIBUTION WIDTH 15.9 % (11.5-14.5)
[2017-05-20 16:50] LABS: INR 1.12; PROTIME 14.4 Sec (12.2-14.2); PT RATIO 1.1
[2017-05-20 16:51] LABS: PARTIAL THROMBOPLASTIN TIME 27.9 Sec (25.0-35.0)
[2017-05-20 16:54] LABS: ALANINE AMINOTRANSFERASE 35 IU/L (13-69); ALBUMIN 3.9 g/dl (3.3-4.9); ALBUMIN/GLOBULIN RATIO 1.25; ALKALINE PHOSPHATASE 80 IU/L (42-121); ASPARTATE AMINO TRANSFERASE 22 IU/L (15-46); BILIRUBIN,INDIRECT 0.3 mg/dl (0-1.1); BILIRUBIN,TOTAL 0.3 mg/dl (0.2-1.3); BLOOD UREA NITROGEN 14 mg/dl (7-20); CALCIUM 9.1 mg/dl (8.4-10.2); CREATININE 0.62 mg/dl (0.44-1.00); GLUCOSE 111 mg/dl (70-220)
[2017-05-20 16:55] LABS: ACETAMINOPHEN < 10.0 ug/ml (10.0-30.0); SALICYLATE < 1.0 mg/dl (5.0-30.0)
[2017-05-20 16:57] LABS: ANION GAP 10 (8-16); CARBON DIOXIDE 27 mmol/L (21-31); CHLORIDE 105 mmol/L (97-110)
[2017-05-20 17:09] LABS: SODIUM 139 mmol/L (135-144)
[2017-05-20 17:10] LABS: ETHANOL < 10.0 mg/dl
[2017-05-20 18:07] LABS: ADD UMIC YES; UR ASCORBIC ACID NEGATIVE (NEGATIVE); UR BILIRUBIN (Dip) NEGATIVE (NEGATIVE); UR BLOOD (Dip) 1+ mg/dL (NEGATIVE); UR CLARITY CLEAR (CLEAR); UR COLOR STRAW (YELLOW); UR GLUCOSE (Dip) NEGATIVE (NEGATIVE); UR KETONES (Dip) NEGATIVE (NEGATIVE); UR LEUKOCYTE ESTERASE (Dip) NEGATIVE Leu/ul (NEGATIVE); UR NITRITE (Dip) NEGATIVE (NEGATIVE); UR RBC 0 /HPF (0-5); UR SQUAMOUS EPITHELIAL CELL FEW /HPF (FEW); UR TOTAL PROTEIN (Dip) NEGATIVE (NEGATIVE); UR UROBILINOGEN (Dip) NEGATIVE (NEGATIVE)
[2017-05-20 18:33] LABS: BARBITURATES Negative (NEGATIVE); BENZODIAZEPINES Negative (NEGATIVE); CANNABINOIDS Negative (NEGATIVE); COCAINE Negative (NEGATIVE); OPIATES Negative (NEGATIVE)
[2017-05-20] MEDS ORDERED: ONDANSETRON 4 MG INJ IV PRN (19:00)
[2017-05-20] MEDS ORDERED: NACL 0.9% 3 ML SYG IV SCH (19:00)
[2017-05-20] MEDS ORDERED: hydrALAzine 20 MG INJ IV PRN (19:00)
[2017-05-20] MEDS ORDERED: HYDROCODONE/APAP (5/325) TAB PO PRN (19:00)
[2017-05-20] MEDS ORDERED: LACTULOSE 30ML CUP PO ONE (19:00)
[2017-05-20] MEDS ORDERED: LORAZEPAM 2 MG INJ IV PRN (19:00)
--- NOTE | 2017-05-20 19:51 | HP ---
Date/Time of Note Date/Time of Note DATE: 05/20/17 TIME: 19:44 Assessment/Plan VTE Prophylaxis VTE Prophylaxis Intervention: SCD's Assessment/Plan Chief Complaint/Hosp Course Patient is a 57-year-old female with a past medical history of IV drug abuse, hepatitis B, hepatitis C, cirrhosis, hypertension and epilepsy who presents to [facility] for altered mental status, found to be within normal limits and suspect likely seizure Altered mental status, resolved Seizures Elevated ammonia Hypertensive urgency, emergency Methamphetamine use Hepatitis B Hepatitis C Questionable multifocal pneumonia Anxiety Mood disorder Hypertension History of breast cancer Plan -Neurology has been consulted for breakthrough seizures, patient is not optimized on medication, does not do well on a lot of different medications, will defer to neurology for antiepileptic drugs, will monitor closely for supposed seizure -Given patient's occasional admitted methamphetamine use, it is not surprising patient's hypertension is severe, and patient is on medications such as clonidine. This episode of altered mental status may now be secondary to hypertensive emergency given recent meth use, patient's history of multiple seizures in the past 3 days is also unreliable. -We will do appropriate neurological workup, EEG and MRI pending, neurology has been consulted -Patient will be retested for hepatitis B, C, and HIV -CK will be ordered for possible tonic-clonic seizure activity -Although there is no CT head, abdomen and pelvis in this particular account, it was informed from the ED that the patient's name was originally confused with another patient and therefore had the CT uploaded to someone else's account. Please see the ED physicians admission note to review results of CT brain as well as CT abdomen and pelvis. The chest x-ray also on that scan does show possible multifocal pneumonia, will start broad-spectrum antibiotics. -We will slowly uptitrate patient's high blood pressure medications, likely caused by frequent methamphetamine use -Seizure precautions -studies for anemia ordered -Restart home meds as tolerated -Patient has very little insight into her disease process and will likely need significant workup in the outpatient setting, although patient states that she has been seeing a provider for the past 2 months. Problems: HPI/ROS Admit Date/Time Admit Date/Time Hx of Present Illness Patient is a 57-year-old female who is a very poor historian and mumbling and states he is homeless, who is brought in by ambulance for altered mental status. Last thing patient remembers is waiting in line at [facility] for her prescriptions and then she remembers the hospital. Patient states that she has recently been having more seizures and has not been taking her previously was a medication due to side effects and toxicity. Patient states that she was at toxic levels with Dilantin and she had bad side effects to Keppra. Patient states that she takes all her other medications including blood pressure medications except for the past few days. Patient has multiple complaints and is very difficult to pinpoint any one issue, however patient can be reoriented and states that she does not really know why she is in the hospital and wants to go home. Patient freely admits to drug use in the past including heroin and IV drug use, states she has hepatitis B and C and cirrhosis. Currently patient is resting comfortably and has no acute complaints and states she feels with her normal limits, no shortness of breath or chest pain, no confusion at this time. No nausea vomiting. No headache. PMH: IV drug use, hepatitis B, hepatitis C, hypertension, cirrhosis, epilepsy, recreational drug use, mood disorder, anxiety PSH: Bilateral lumpectomy in the , tubal ligation Social: Positive for smoking, denies drinking, occasional drugs most recently meth Meds: Norvasc, clonidine, Klonopin, Seroquel, Celexa, hydrochlorothiazide, [place] PMH/Family/Social Social History Smoking Status: Current every day smoker Exam/Review of Systems Vital Signs Vitals Vital Signs Date Time Temp Pulse Resp B/P Pulse Ox O2 Delivery O2 Flow Rate FiO2 05/20/17 16:41 98.0 98 20 172/115 98 05/20/17 15:31 Room Air Exam Exam Physical exam General: Patient is laying in bed and answers questions appropriately, but mumbles Mentation: Patient is alert and oriented 4, Head: Normocephalic atraumatic mouth: no teeth, no obvious sores. Eyes: EOMI, pupils reactive to light Neck: Supple, nontender, midline Respiratory: Clear to auscultation bilaterally Cardiovascular: regular rate, no obvious murmurs Gastrointestinal: non-tender to palpation, bowel sounds heard. Neurological: Moves all extremities spontaneously Skin: No new skin lesions Labs Result Diagram: 05/20/17 1235 05/20/17 1235 Medications Medications Current Medications Ondansetron HCl (Zofran Inj) 4 mg Q6H PRN IV NAUSEA AND/OR VOMITING; Start at 19:00 Oxycodone HCl (Roxicodone) 5 mg Q6H PRN PO PAIN LEVEL 6-10; Start 05/20/17 at 19:00 Lorazepam (Ativan) 2 mg Q10MIN PRN IV seizure; Start 05/20/17 at 19:00 Amlodipine Besylate (Norvasc) 10 mg DAILY PO ; Start 05/20/17 at 19:00 Hydralazine HCl (Apresoline) 10 mg Q4H PRN IV SBP >160; Start 05/20/17 at 19:00 Gabapentin (Neurontin) 300 mg TID PO ; Start 05/20/17 at 21:00 Quetiapine Fumarate (Seroquel) 300 mg QHS PO ; Start 05/20/17 at 21:00 Clonazepam (Klonopin) 0.5 mg Q8H PRN PO ANXIETY; Start 05/20/17 at 19:00 Hydrochlorothiazide (Hydrochlorothiazide) 25 mg DAILY PO ; Start 05/20/17 at 19: 00 Citalopram Hydrobromide 20 mg 20 mg DAILY PO ; Start 05/21/17 at 09:00 Piperacillin Sod/ Tazobactam Sod 100 ml @ 200 mls/hr Q6 IVPB ; Start 05/21/17 at 00:00 Vancomycin HCl/ Sodium Chloride (Vancocin/NS) 250 ml @ 83.333 mls/ hr Q24H IVPB ; Start 05/21/17 at 13:30 FANTASMA GARZON May 20, 2017 19:51
[2017-05-20] MEDS ORDERED: ALBUTEROL/IPRATROPIUM (NEB) 3 ML AMP HHN PRN (20:00)
[2017-05-20 20:07] LABS: CREATINE KINASE 71 IU/L (23-200)
--- NOTE | 2017-05-20 20:18 | RADRPT ---
PROCEDURE: XR Chest PA and Lateral CLINICAL INDICATION: Pneumonia TECHNIQUE: PA and Lateral views of the chest were obtained. COMPARISON: 10/25/2016 FINDINGS: Cardiovascular: The heart remains mildly enlarged, the aorta again appears tortuous, wall pulmonary vasculature has normalized. Lung Martines: The pulmonary infiltrates have resolved with the lung martines now clear. Pleural Spaces: No pneumothorax is identified and no effusion is evident. Osseous Structures: The osseous elements again appear rarefied. There are old appearing left postero lateral rib fractures. The spine is poorly seen to the mediastinum due to under penetrated technique . Soft Tissues: The soft tissues appear unremarkable. IMPRESSION: 1. Decreased heart size with mild cardiomegaly and aortic tortuosity but there is no longer evidenc e of CHF. 2. Resolution of the pulmonary edema. 3. Osteoporosis with old appearing left posterior lateral rib fractures, unchanged. Physician Carmencita Date Time Electronically viewed and signed by Physician Carmencita on 05/20/2017 20:18 /
[2017-05-20] MEDS: oxyCODONE 5 MG TAB PO PRN ×2 (20:42→23:08)
[2017-05-20 20:57] LABS: HEPATITIS B CORE ANTIBODY REACTIVE (NEGATIVE)
[2017-05-20] MEDS: HYDROCHLOROTHIAZIDE 25 MG TAB PO SCH (21:33)
[2017-05-20] MEDS: GABAPENTIN 300 MG CAP PO SCH (21:33)
[2017-05-20] MEDS: AMLODIPINE 10 MG TAB PO SCH (21:34)
[2017-05-20 22:04] VITALS: TEMP 98
[2017-05-20 22:30] VITALS: BP 154/90; RESP 19
[2017-05-20] MEDS ORDERED: POTASSIUM CHLORIDE 250 ML IVPB ONE (22:30)
[2017-05-20 22:41] VITALS: PULSE 110
[2017-05-20] MEDS: QUETIAPINE 100 MG TAB PO SCH (23:23)
[2017-05-20] MEDS: clonAZEPAM 0.5 MG TAB PO PRN (23:23)
[2017-05-20] MEDS: PIPER-TAZO 3.375 GM IV (PMX) 100 ML IVPB SCH (23:24)
[2017-05-20 23:50] VITALS: Ht 157.5 cm; Wt 59.0 kg
[2017-05-21] VITALS (13 sets, daily range): BP systolic 116–152; BP diastolic 79–120; PULSE 87–110; RESP 17–21
[2017-05-21] MEDS: PIPER-TAZO 3.375 GM IV (PMX) 100 ML IVPB SCH (05:04)
[2017-05-21 08:42] LABS: ALBUMIN 3.5 g/dl (3.3-4.9); ALBUMIN/GLOBULIN RATIO 1.09; BILIRUBIN,INDIRECT 0.2 mg/dl (0-1.1); BILIRUBIN,TOTAL 0.2 mg/dl (0.2-1.3); CALCIUM 9.2 mg/dl (8.4-10.2); CREATININE 0.74 mg/dl (0.44-1.00); POTASSIUM 3.5 mmol/L (3.5-5.1); TOTAL PROTEIN 6.7 g/dl (6.1-8.1)
[2017-05-21 08:44] LABS: IRON 73 ug/dl (35-150)
[2017-05-21] MEDS: HYDROCHLOROTHIAZIDE 25 MG TAB PO SCH (08:47)
[2017-05-21] MEDS: AMLODIPINE 10 MG TAB PO SCH (08:47)
[2017-05-21] MEDS: GABAPENTIN 300 MG CAP PO SCH ×3 (08:47→20:36)
[2017-05-21] MEDS: CITALOPRAM 20 MG TAB PO SCH (08:47)
[2017-05-21] MEDS: oxyCODONE 5 MG TAB PO PRN ×2 (08:52→17:25)
[2017-05-21] MEDS: clonAZEPAM 0.5 MG TAB PO PRN ×2 (08:52→17:25)
[2017-05-21 08:54] LABS: TOTAL IRON BINDING CAPACITY 346 ug/dl (241-421)
[2017-05-21 08:56] LABS: T3 UPTAKE 35.8 % (23.5-40.5)
[2017-05-21 09:10] LABS: THYROID STIMULATING HORMONE 1.26 MIU/L (0.465-4.680)
[2017-05-21 09:16] LABS: FERRITIN 29.3 ng/ml (11.1-264.0)
--- NOTE | 2017-05-21 11:42 | CONS ---
Date/Time of Note Date/Time of Note DATE: 05/21/17 TIME: 11:38 Assessment/Plan Assessment/Plan Chief Complaint/Hosp Course 57 year old female with substance abuse history, utox + for methamphetamines with reportedly uncontrolled seizure. Head CT shows no acute process EEG ordered currently pending avoid to abstain from methamphetamine unclear if seizures are triggered from drug abuse history would recommend EEG and continue psych meds Problems: Consultation Date/Type/Reason Admit Date/Time 05/20/17 Date of Consultation: May 21, 2017 Type of Consultation: Neurology Reason for Consultation reported seizure hx Referring Provider: FANTASMA GARZON Hx of Present Illness 57 year old undomiciled female, history of psychiatric d/o, substance abuse, heavy ETOH abuse history, IVDA, Hepatitis B,C, Cirrhosis, methamphetamine abuse admitted with AMS. She recalls waiting in a line at [facility] for scripts and reportedly has been having increased frequency of seizures. She admits to taking several meds over the past 17 years including Dilantin which caused her teeth to fall out, Depakote caused abdominal issues, Lamictal unable to tolerate , Keppra caused cramps, reportedly seizure only controlled with Klonopin and Gabapentin. She also takes Celexa and Seroquel, utox + for methamphetamines. Head CT : Mild diffuse cerebral and cerebellar atrophy is present. There is proportionate dilatation of the ventricular system and sulci in a symmetric fashion. There is prominence of the extraaxial spaces secondary to atrophy. There is no evidence of intracranial hemorrhage, mass effect or midline shift. There is age indeterminate hypoattenuation in the right lentiform nucleus. No abnormal intra-axial or extra-axial fluid collections are seen. The density of the brain is normal and the arauz/white matter differentiation is well preserved. The osseous structures are unremarkable. Paranasal sinuses are clear. Social History Smoking Status: Current every day smoker Exam/Review of Systems Vital Signs Vitals Vital Signs Date Time Temp Pulse Resp B/P Pulse Ox O2 Delivery O2 Flow Rate FiO2 05/21/17 11:33 98.4 91 20 149/93 97 05/21/17 11:33 Room Air 05/20/17 21:51 21 Intake and Output 05/20/17 05/20/17 05/21/17 15:00 23:00 07:00 Intake Total 850 ml Balance 850 ml Exam disheveled appearance dysarthric speech follows commands, agitated CN: II-XII intact Motor: 5/5 throughout Coordination: FTN no ataxia Reflexes 2+ throughout Results Result Diagram: 05/20/17 1235 05/21/17 0728 Results 24 hrs Laboratory Tests Test 05/20/17 12:35 05/20/17 14:50 05/20/17 16:35 05/20/17 17:45 White Blood Count 5.0 Red Blood Count 4.12 L Hemoglobin 9.2 L Hematocrit 29.5 L Mean Corpuscular Volume 71.6 L Mean Corpuscular Hemoglobin 22.3 L Mean Corpuscular Hemoglobin Concent 31.2 L Red Cell Distribution Width 15.9 H Platelet Count 196 Mean Platelet Volume 9.1 Neutrophils % 51.7 Lymphocytes % 36.3 Monocytes % 5.6 Eosinophils % 5.0 Basophils % 1.0 Nucleated Red Blood Cells % 0.0 Neutrophils # 2.6 Lymphocytes # 1.8 Monocytes # 0.3 Eosinophils # 0.3 Basophils # 0.1 Nucleated Red Blood Cells # 0.0 Prothrombin Time 14.4 H Prothrombin Time Ratio 1.1 INR International Normalized Ratio 1.12 Activated Partial Thromboplast Time 27.9 Sodium Level 139 Potassium Level 3.0 L Chloride Level 105 Carbon Dioxide Level 27 Anion Gap 10 Blood Urea Nitrogen 14 Creatinine 0.62 Glucose Level 111 Calcium Level 9.1 Total Bilirubin 0.3 Direct Bilirubin 0.00 Indirect Bilirubin 0.3 Aspartate Amino Transf (AST/SGOT) 22 Alanine Aminotransferase (ALT/SGPT) 35 Alkaline Phosphatase 80 Ammonia 34 H Total Protein 7.0 Albumin 3.9 Globulin 3.10 Albumin/Globulin Ratio 1.25 Salicylates Level < 1.0 L Acetaminophen Level < 10.0 L Ethyl Alcohol Level < 10.0 Lactic Acid Level 1.1 1.1 Urine Color STRAW Urine Clarity CLEAR Urine pH 7.0 Urine Specific [place] 1.010 Urine Ketones NEGATIVE Urine Nitrite NEGATIVE Urine Bilirubin NEGATIVE Urine Urobilinogen NEGATIVE Urine Leukocyte Esterase NEGATIVE Urine Microscopic RBC 0 Urine Microscopic WBC 1 Urine Squamous Epithelial Cells FEW Urine Hemoglobin 1+ H Urine Glucose NEGATIVE Urine Total Protein NEGATIVE Urine Opiates Screen Negative Urine Barbiturates Negative Urine Amphetamines Screen POSITIVE Urine Benzodiazepines Screen Negative Urine Cocaine Screen Negative Urine Cannabinoids Negative Test 05/20/17 19:10 05/20/17 21:24 05/21/17 07:28 Creatine Kinase 71 Hepatitis A Antibody Total POSITIVE H Hepatitis B Surface Antigen NEGATIVE Hepatitis B Surface Antibody INDETERMINATE Hepatitis B Core Total Antibody REACTIVE H Hepatitis C Antibody REACTIVE H HIV (1&2) Antibody NEGATIVE Lactic Acid Level 1.2 Sodium Level 137 Potassium Level 3.5 Chloride Level 105 Carbon Dioxide Level 28 Anion Gap 8 Blood Urea Nitrogen 16 Creatinine 0.74 Glucose Level 100 Calcium Level 9.2 Iron Level 73 Total Iron Binding Capacity 346 Percent Iron Saturation 21 L Ferritin 29.3 Total Bilirubin 0.2 Direct Bilirubin 0.00 Indirect Bilirubin 0.2 Aspartate Amino Transf (AST/SGOT) 21 Alanine Aminotransferase (ALT/SGPT) 31 Alkaline Phosphatase 68 Ammonia 18 Lactate Dehydrogenase 589 Total Protein 6.7 Albumin 3.5 Globulin 3.20 Albumin/Globulin Ratio 1.09 Thyroid Stimulating Hormone (TSH) 1.260 Free Thyroxine Index 3.15 Thyroxine (T4) 8.8 Triiodothyronine (T3) Uptake 35.8 Medications Medications Current Medications Ondansetron HCl (Zofran Inj) 4 mg Q6H PRN IV NAUSEA AND/OR VOMITING; Start at 19:00 Oxycodone HCl (Roxicodone) 5 mg Q6H PRN PO PAIN LEVEL 6-10 Last administered on 05/21/17 08:52; Admin Dose 5 MG; Start 05/20/17 at 19:00 Lorazepam (Ativan) 2 mg Q10MIN PRN IV seizure; Start 05/20/17 at 19:00 Amlodipine Besylate (Norvasc) 10 mg DAILY PO Last administered on 05/21/17 08: 47; Admin Dose 10 MG; Start 05/20/17 at 19:00 Hydralazine HCl (Apresoline) 10 mg Q4H PRN IV SBP >160 Last administered on 20:19; Admin Dose 10 MG; Start 05/20/17 at 19:00 Gabapentin (Neurontin) 300 mg TID PO Last administered on 05/21/17 08:47; Admin Dose 300 MG; Start 05/20/17 at 21:00 Quetiapine Fumarate (Seroquel) 300 mg QHS PO Last administered on 05/20/17 23: 23; Admin Dose 300 MG; Start 05/20/17 at 21:00 Clonazepam (Klonopin) 0.5 mg Q8H PRN PO ANXIETY Last administered on 05/21/17 08:52; Admin Dose 0.5 MG; Start 05/20/17 at 19:00 Hydrochlorothiazide (Hydrochlorothiazide) 25 mg DAILY PO Last administered on 08:47; Admin Dose 25 MG; Start 05/20/17 at 19:00 Citalopram Hydrobromide 20 mg 20 mg DAILY PO Last administered on 05/21/17 08: 47; Admin Dose 20 MG; Start 05/21/17 at 09:00 Piperacillin Sod/ Tazobactam Sod 100 ml @ 200 mls/hr Q6 IVPB Last administered on 05/21/17 05:04; Admin Dose 200 MLS/HR; Start 05/21/17 at 00:00 Vancomycin HCl/ Sodium Chloride (Vancocin/NS) 250 ml @ 83.333 mls/ hr Q24H IVPB ; Start 05/21/17 at 13:30 Clonidine (Catapres) 0.1 mg Q8 PRN PO sbp>160; Start 05/20/17 at 22:30 Influenza Virus Vaccine (Fluzone) 0.5 ml ONCE ONCE IM* ; Start 05/22/17 at 09:00 ; Stop 05/22/17 at 09:01 INDIRA MATOS MD May 21, 2017 11:42
[2017-05-21] MEDS ORDERED: VANCOMYCIN 1.25 GM in SOD CHLORIDE 0.9% 250 ML IVPB SCH (13:30)
[2017-05-21] MEDS: LEVOFLOXACIN 750 MG TABLET PO SCH (15:04)
--- NOTE | 2017-05-21 16:44 | PN ---
Date/Time of Note Date/Time of Note DATE: 05/21/17 TIME: 16:37 Assessment/Plan VTE Prophylaxis VTE Prophylaxis Intervention: SCD's Lines/Catheters IV [facility]from [facility] Saline Lock Assessment/Plan Chief Complaint/Hosp Course Patient is a 57-year-old female with a past medical history of IV drug abuse, hepatitis B, hepatitis C, cirrhosis, hypertension and epilepsy who presents to [facility] for altered mental status, found to be within normal limits and suspect likely seizure Altered mental status, resolved Seizures, hx of Elevated ammonia Hypertensive urgency, emergency Methamphetamine use Hepatitis B Hepatitis C Questionable multifocal pneumonia Anxiety Mood disorder Hypertension History of breast cancer Plan -Neurology consulted, seen patient, does not feel patient needs additional AEDs at this time, will follow up on EEG -Continue to monitor patient's blood pressure and add medications as needed, likely secondary to patient's recent meth use -Follow-up viral RNA for HIV and hepatitis C -Off broad-spectrum antibiotics, continue p.o. Levaquin for now -Patient's encephalopathy has returned to baseline -Ammonia has returned to normal values with 1 dose of lactulose, patient urged to follow-up with primary care provider to monitor ammonia -Seizure precautions Restart home medications as tolerated Problems: Subjective 24 Hr Interval Summary Free Text/Dictation no acute complaints, states she needs help with housing. Wants workup for possible seizure. Exam/Review of Systems Vital Signs Vitals Vital Signs Date Time Temp Pulse Resp B/P Pulse Ox O2 Delivery O2 Flow Rate FiO2 05/21/17 15:30 98.1 95 17 116/95 97 05/21/17 11:33 Room Air 05/20/17 21:51 21 Intake and Output 05/20/17 05/20/17 05/21/17 15:00 23:00 07:00 Intake Total 850 ml Balance 850 ml Exam Physical exam General: Patient is laying in bed and answers questions appropriately, but mumbles Mentation: Patient is alert and oriented 4, Head: Normocephalic atraumatic mouth: no teeth, no obvious sores. Eyes: EOMI, pupils reactive to light Neck: Supple, nontender, midline Respiratory: Clear to auscultation bilaterally Cardiovascular: regular rate, no obvious murmurs Gastrointestinal: non-tender to palpation, bowel sounds heard. Neurological: Moves all extremities spontaneously Results Result Diagram: 05/20/17 1235 05/21/17 0728 Results 24 hrs Laboratory Tests Test 05/20/17 17:45 05/20/17 19:10 05/20/17 21:24 05/21/17 07:28 Urine Color STRAW Urine Clarity CLEAR Urine pH 7.0 Urine Specific [place] 1.010 Urine Ketones NEGATIVE Urine Nitrite NEGATIVE Urine Bilirubin NEGATIVE Urine Urobilinogen NEGATIVE Urine Leukocyte Esterase NEGATIVE Urine Microscopic RBC 0 Urine Microscopic WBC 1 Urine Squamous Epithelial Cells FEW Urine Hemoglobin 1+ H Urine Glucose NEGATIVE Urine Total Protein NEGATIVE Urine Opiates Screen Negative Urine Barbiturates Negative Urine Amphetamines Screen POSITIVE Urine Benzodiazepines Screen Negative Urine Cocaine Screen Negative Urine Cannabinoids Negative Creatine Kinase 71 Hepatitis A Antibody Total POSITIVE H Hepatitis B Surface Antigen NEGATIVE Hepatitis B Surface Antibody INDETERMINATE Hepatitis B Core Total Antibody REACTIVE H Hepatitis C Antibody REACTIVE H HIV (1&2) Antibody NEGATIVE Lactic Acid Level 1.2 Sodium Level 137 Potassium Level 3.5 Chloride Level 105 Carbon Dioxide Level 28 Anion Gap 8 Blood Urea Nitrogen 16 Creatinine 0.74 Glucose Level 100 Calcium Level 9.2 Iron Level 73 Total Iron Binding Capacity 346 Percent Iron Saturation 21 L Ferritin 29.3 Total Bilirubin 0.2 Direct Bilirubin 0.00 Indirect Bilirubin 0.2 Aspartate Amino Transf (AST/SGOT) 21 Alanine Aminotransferase (ALT/SGPT) 31 Alkaline Phosphatase 68 Ammonia 18 Lactate Dehydrogenase 589 Total Protein 6.7 Albumin 3.5 Globulin 3.20 Albumin/Globulin Ratio 1.09 Thyroid Stimulating Hormone (TSH) 1.260 Free Thyroxine Index 3.15 Thyroxine (T4) 8.8 Triiodothyronine (T3) Uptake 35.8 Test 05/21/17 11:59 Lab Scanned Report LAB Medications Medications Current Medications Ondansetron HCl (Zofran Inj) 4 mg Q6H PRN IV NAUSEA AND/OR VOMITING; Start at 19:00 Oxycodone HCl (Roxicodone) 5 mg Q6H PRN PO PAIN LEVEL 6-10 Last administered on 05/21/17 08:52; Admin Dose 5 MG; Start 05/20/17 at 19:00 Lorazepam (Ativan) 2 mg Q10MIN PRN IV seizure; Start 05/20/17 at 19:00 Amlodipine Besylate (Norvasc) 10 mg DAILY PO Last administered on 05/21/17 08: 47; Admin Dose 10 MG; Start 05/20/17 at 19:00 Hydralazine HCl (Apresoline) 10 mg Q4H PRN IV SBP >160 Last administered on 20:19; Admin Dose 10 MG; Start 05/20/17 at 19:00 Gabapentin (Neurontin) 300 mg TID PO Last administered on 05/21/17 12:39; Admin Dose 300 MG; Start 05/20/17 at 21:00 Quetiapine Fumarate (Seroquel) 300 mg QHS PO Last administered on 05/20/17 23: 23; Admin Dose 300 MG; Start 05/20/17 at 21:00 Clonazepam (Klonopin) 0.5 mg Q8H PRN PO ANXIETY Last administered on 05/21/17 08:52; Admin Dose 0.5 MG; Start 05/20/17 at 19:00 Hydrochlorothiazide (Hydrochlorothiazide) 25 mg DAILY PO Last administered on 08:47; Admin Dose 25 MG; Start 05/20/17 at 19:00 Citalopram Hydrobromide (Celexa) 20 mg DAILY PO Last administered on 05/21/17 08:47; Admin Dose 20 MG; Start 05/21/17 at 09:00 Clonidine (Catapres) 0.1 mg Q8 PRN PO sbp>160; Start 05/20/17 at 22:30 Influenza Virus Vaccine (Fluzone) 0.5 ml ONCE ONCE IM* ; Start 05/22/17 at 09:00 ; Stop 05/22/17 at 09:01 Levofloxacin (Levaquin) 750 mg DAILY@06 PO Last administered on 05/21/17 15:04 ; Admin Dose 750 MG; Start 05/21/17 at 14:00 FANTASMA GARZON May 21, 2017 16:44
[2017-05-21] MEDS: QUETIAPINE 100 MG TAB PO SCH (20:37)
--- NOTE | 2017-05-21 20:44 | RADRPT ---
PROCEDURE: MR Brain noncontrast. CLINICAL INDICATION: Seizures. TECHNIQUE: Multiplanar multisequence noncontrast MRI of the brain was performed. COMPARISON: Noncontrast CT of the head from May 10, 2017. FINDINGS: Evaluation is limited without intravenous contrast. Evaluation is mildly limited due to motion degradation. There is minimal generalized cerebral volume loss. There are few bilateral subcortical and periventricular T2 hyperintensities suggesting chronic micr ovascular ischemic changes. There is also more focal T2 hyperintensity within the right cortés radia ta/putamen which is indeterminate. This measures approximate 2 cm anteroposteriorly (image 17 series 6). There are T2 hyperintensities also noted within the jazmine suggesting chronic microvascular ischemic c hanges. The bilateral hippocampi are normal size without evidence of mesial temporal sclerosis. There is no acute infarction. There is no intracranial hemorrhage or extra-axial fluid collection. There is no mass effect. There is no midline shift. The posterior fossa is unremarkable. The normal intracranial, intravascular flow voids are preserved. The visualized paranasal sinuses are well aerated. The orbits are grossly unremarkable. There is no destructive osseous lesion. IMPRESSION: Evaluation is limited without intravenous contrast. Evaluation is mildly limited due to motion degra dation. 1. No acute infarction or intracranial hemorrhage. 2. Mild chronic microvascular ischemic changes. 3. Indeterminate T2 hyperintensity within the right cortés radiata/putamen. This may be related to f ocal chronic microvascular changes versus other less likely etiologies. Postcontrast imaging may be performed as clinically warranted given history of seizures. 4. Minimal generalized cerebral volume loss. Further findings as detailed above. RPTAT: HVF .Oniel Adler MD, Date Time Electronically viewed and signed by .Oniel Adler MD, on 05/21/2017 20:44 .F/
[2017-05-22] VITALS (12 sets, daily range): BP systolic 121–159; BP diastolic 75–99; PULSE 85–110; RESP 16–22
[2017-05-22] MEDS: oxyCODONE 5 MG TAB PO PRN ×3 (04:27→22:20)
[2017-05-22 06:21] LABS: RETICULOCYTE COUNT % 1.4 % (0.5-1.5)
[2017-05-22] MEDS: LEVOFLOXACIN 750 MG TABLET PO SCH (06:21)
[2017-05-22 06:22] LABS: EOSINOPHILS # 0.2 10^3/ul (0.0-0.5); EOSINOPHILS % 5.7 % (0.0-7.0); HEMATOCRIT 31.6 % (37.0-47.0); HEMOGLOBIN 9.7 g/dl (12.0-16.0); LYMPHOCYTES # 1.6 10^3/ul (0.8-2.9); LYMPHOCYTES % 40.8 % (15.0-51.0); MEAN CORPUSCULAR HEMOGLOBIN 21.8 pg (29.0-33.0); MEAN CORPUSCULAR HGB CONC 30.7 g/dl (32.0-37.0); MEAN CORPUSCULAR VOLUME 71.2 fl (82.0-101.0); MEAN PLATELET VOLUME 9.6 fl (7.4-10.4); MONOCYTE # 0.3 10^3/ul (0.3-0.9); MONOCYTES % 8.3 % (0.0-11.0); NEUTROPHIL # 1.7 10^3/ul (1.6-7.5); NEUTROPHILS % 43.9 % (39.0-77.0); PLATELET COUNT 229 10^3/UL (140-415); RED BLOOD COUNT 4.44 10^6/ul (4.20-5.40); RED CELL DISTRIBUTION WIDTH 15.6 % (11.5-14.5); WHITE BLOOD COUNT 3.9 10^3/ul (4.8-10.8)
[2017-05-22] MEDS: clonAZEPAM 0.5 MG TAB PO PRN ×2 (06:42→14:51)
[2017-05-22 07:00] LABS: CALCIUM 9.2 mg/dl (8.4-10.2); CREATININE 0.95 mg/dl (0.44-1.00); MAGNESIUM 1.4 mg/dl (1.7-2.5); PHOSPHORUS 5.5 mg/dl (2.5-4.9); POTASSIUM 3.4 mmol/L (3.5-5.1)
[2017-05-22] MEDS ORDERED: POTASSIUM CHLORIDE (SR) 20 MEQ TAB PO ONE (08:00)
[2017-05-22] MEDS ORDERED: INFLUENZA VIRUS VACCINE 0.5 ML (DISPENSING) IM* ONE (09:00)
[2017-05-22] MEDS: CITALOPRAM 20 MG TAB PO SCH (09:24)
[2017-05-22] MEDS: GABAPENTIN 300 MG CAP PO SCH ×3 (09:24→22:15)
[2017-05-22] MEDS: HYDROCHLOROTHIAZIDE 25 MG TAB PO SCH (09:24)
[2017-05-22] MEDS: AMLODIPINE 10 MG TAB PO SCH (09:25)
[2017-05-22] MEDS ORDERED: MAGNESIUM SULFATE 1 GM/D5W 100 ML IVPB SCH (09:30)
--- NOTE | 2017-05-22 10:27 | CONS ---
Date/Time of Note Date/Time of Note DATE: 05/22/17 TIME: 10:25 Consult Date/Type/Reason Admit Date/Time May 20, 2017 at 16:00 Initial Consult Date 05/21/17 Type of Consultation: Neurology Reason for Consultation evaluation for seizures Ordering Provider: FANTASMA GARZON Subjective no seizures overnight requesting klonopin Objective Vital Signs Date Time Temp Pulse Resp B/P Pulse Ox O2 Delivery O2 Flow Rate FiO2 05/22/17 08:27 95 05/22/17 07:42 Room Air 05/22/17 07:35 98.1 18 141/90 98 05/20/17 21:51 21 Intake and Output 05/21/17 05/21/17 05/22/17 15:00 23:00 07:00 Intake Total 1500 ml Balance 1500 ml Exam disheveled appearance dysarthric speech follows commands, agitated CN: II-XII intact Motor: 5/5 throughout Coordination: FTN no ataxia Reflexes 2+ throughout Results/Medications Result Diagram: 05/22/17 0554 05/22/17 0554 Results 24 hrs Laboratory Tests Test 05/21/17 11:59 05/22/17 05:54 Lab Scanned Report LAB White Blood Count 3.9 #L Red Blood Count 4.44 Hemoglobin 9.7 L Hematocrit 31.6 L Mean Corpuscular Volume 71.2 L Mean Corpuscular Hemoglobin 21.8 L Mean Corpuscular Hemoglobin Concent 30.7 L Red Cell Distribution Width 15.6 H Platelet Count 229 Mean Platelet Volume 9.6 Neutrophils % 43.9 Lymphocytes % 40.8 Monocytes % 8.3 Eosinophils % 5.7 Basophils % 1.0 Nucleated Red Blood Cells % 0.0 Neutrophils # 1.7 Lymphocytes # 1.6 Monocytes # 0.3 Eosinophils # 0.2 Basophils # 0.0 Nucleated Red Blood Cells # 0.0 Absolute Reticulocyte Count 0.062 Percent Reticulocyte Count 1.4 Sodium Level 137 Potassium Level 3.4 L Chloride Level 100 Carbon Dioxide Level 31 Anion Gap 9 Blood Urea Nitrogen 26 H Creatinine 0.95 Glucose Level 129 Calcium Level 9.2 Phosphorus Level 5.5 H Magnesium Level 1.4 L Medications Current Medications Ondansetron HCl (Zofran Inj) 4 mg Q6H PRN IV NAUSEA AND/OR VOMITING; Start at 19:00 Oxycodone HCl (Roxicodone) 5 mg Q6H PRN PO PAIN LEVEL 6-10 Last administered on 05/22/17 04:27; Admin Dose 5 MG; Start 05/20/17 at 19:00 Lorazepam (Ativan) 2 mg Q10MIN PRN IV seizure; Start 05/20/17 at 19:00 Amlodipine Besylate (Norvasc) 10 mg DAILY PO Last administered on 05/22/17 09: 25; Admin Dose 10 MG; Start 05/20/17 at 19:00 Hydralazine HCl (Apresoline) 10 mg Q4H PRN IV SBP >160 Last administered on 20:19; Admin Dose 10 MG; Start 05/20/17 at 19:00 Gabapentin (Neurontin) 300 mg TID PO Last administered on 05/22/17 09:24; Admin Dose 300 MG; Start 05/20/17 at 21:00 Quetiapine Fumarate (Seroquel) 300 mg QHS PO Last administered on 05/21/17 20: 37; Admin Dose 300 MG; Start 05/20/17 at 21:00 Clonazepam (Klonopin) 0.5 mg Q8H PRN PO ANXIETY Last administered on 05/22/17 06:42; Admin Dose 0.5 MG; Start 05/20/17 at 19:00 Hydrochlorothiazide (Hydrochlorothiazide) 25 mg DAILY PO Last administered on 09:24; Admin Dose 25 MG; Start 05/20/17 at 19:00 Citalopram Hydrobromide (Celexa) 20 mg DAILY PO Last administered on 05/22/17 09:24; Admin Dose 20 MG; Start 05/21/17 at 09:00 Clonidine (Catapres) 0.1 mg Q8 PRN PO sbp>160; Start 05/20/17 at 22:30 Levofloxacin 750 mg 750 mg DAILY@06 PO Last administered on 05/22/17 06:21; Admin Dose 750 MG; Start 05/21/17 at 14:00 Magnesium Sulfate/ Dextrose (Magnesium Sulfate 1 Gm/D5W) 100 ml @ 100 mls/hr ONCE IVPB Last administered on 05/22/17 09:25; Admin Dose 100 MLS/HR; Start at 09:30; Stop 05/22/17 at 10:29 Assessment/Plan Chief Complaint/Hosp Course 57 year old female with substance abuse history, utox + for methamphetamines with reportedly uncontrolled seizure. MRI Brain without contrast: 1. No acute infarction or intracranial hemorrhage. 2. Mild chronic microvascular ischemic changes. 3. Indeterminate T2 hyperintensity within the right cortés radiata/putamen. This may be related to focal chronic microvascular changes versus other less likely etiologies. Postcontrast imaging may be performed as clinically warranted given history of seizures. 4. Minimal generalized cerebral volume loss. avoid to abstain from methamphetamine unclear if seizures are triggered from drug abuse history continue psych meds, EEG pending official review Problems: INDIRA MATOS MD May 22, 2017 10:26
[2017-05-22] MEDS: LISINOPRIL 10 MG TAB PO SCH (14:51)
--- NOTE | 2017-05-22 16:48 | PN ---
Date/Time of Note Date/Time of Note DATE: 05/22/17 TIME: 16:46 Assessment/Plan VTE Prophylaxis VTE Prophylaxis Intervention: SCD's Lines/Catheters IV Catheter Type (from [facility]): [facility] Assessment/Plan Chief Complaint/Hosp Course Patient is a 57-year-old female with a past medical history of IV drug abuse, hepatitis B, hepatitis C, cirrhosis, hypertension and epilepsy who presents to [facility] for altered mental status, found to be within normal limits and suspect likely seizure Altered mental status, resolved Seizures, hx of Elevated ammonia Hypertensive urgency, emergency Methamphetamine use Hepatitis B Hepatitis C Questionable multifocal pneumonia Anxiety Mood disorder Hypertension History of breast cancer Plan -Neurology consulted, seen patient, does not feel patient needs additional AEDs at this time, will follow up on EEG -Continue to monitor patient's blood pressure and add medications as needed, likely secondary to patient's recent meth use -Starting lisinopril as more controlled than patient's home clonidine. -Follow-up viral RNA for HIV and hepatitis C -Off broad-spectrum antibiotics, continue p.o. Levaquin for now -Patient's encephalopathy has returned to baseline -Ammonia has returned to normal values with 1 dose of lactulose, patient urged to follow-up with primary care provider to monitor ammonia -Seizure precautions Restart home medications as tolerated DISPO: better BP control and await EEG results, likely DC tomorrow. Problems: Subjective 24 Hr Interval Summary Free Text/Dictation no seizures or overnight events. Patient concerned about blood pressure. Exam/Review of Systems Vital Signs Vitals Vital Signs Date Time Temp Pulse Resp B/P Pulse Ox O2 Delivery O2 Flow Rate FiO2 05/22/17 16:44 96 05/22/17 16:24 Room Air 05/22/17 15:12 98.0 16 146/99 96 05/20/17 21:51 21 Intake and Output 05/21/17 05/21/17 05/22/17 15:00 23:00 07:00 Intake Total 1500 ml Balance 1500 ml Exam Physical exam General: Patient is laying in bed and answers questions appropriately, but mumbles Mentation: Patient is alert and oriented 4, Head: Normocephalic atraumatic mouth: no teeth, no obvious sores. Eyes: EOMI, pupils reactive to light Neck: Supple, nontender, midline Respiratory: Clear to auscultation bilaterally Cardiovascular: regular rate, no obvious murmurs Gastrointestinal: non-tender to palpation, bowel sounds heard. Neurological: Moves all extremities spontaneously Results Result Diagram: 05/22/17 0554 05/22/17 0554 Results 24 hrs Laboratory Tests Test 05/22/17 05:54 White Blood Count 3.9 #L Red Blood Count 4.44 Hemoglobin 9.7 L Hematocrit 31.6 L Mean Corpuscular Volume 71.2 L Mean Corpuscular Hemoglobin 21.8 L Mean Corpuscular Hemoglobin Concent 30.7 L Red Cell Distribution Width 15.6 H Platelet Count 229 Mean Platelet Volume 9.6 Neutrophils % 43.9 Lymphocytes % 40.8 Monocytes % 8.3 Eosinophils % 5.7 Basophils % 1.0 Nucleated Red Blood Cells % 0.0 Neutrophils # 1.7 Lymphocytes # 1.6 Monocytes # 0.3 Eosinophils # 0.2 Basophils # 0.0 Nucleated Red Blood Cells # 0.0 Absolute Reticulocyte Count 0.062 Percent Reticulocyte Count 1.4 Sodium Level 137 Potassium Level 3.4 L Chloride Level 100 Carbon Dioxide Level 31 Anion Gap 9 Blood Urea Nitrogen 26 H Creatinine 0.95 Glucose Level 129 Calcium Level 9.2 Phosphorus Level 5.5 H Magnesium Level 1.4 L Medications Medications Current Medications Ondansetron HCl (Zofran Inj) 4 mg Q6H PRN IV NAUSEA AND/OR VOMITING; Start at 19:00 Oxycodone HCl (Roxicodone) 5 mg Q6H PRN PO PAIN LEVEL 6-10 Last administered on 05/22/17 14:52; Admin Dose 5 MG; Start 05/20/17 at 19:00 Lorazepam (Ativan) 2 mg Q10MIN PRN IV seizure; Start 05/20/17 at 19:00 Amlodipine Besylate (Norvasc) 10 mg DAILY PO Last administered on 05/22/17 09: 25; Admin Dose 10 MG; Start 05/20/17 at 19:00 Hydralazine HCl (Apresoline) 10 mg Q4H PRN IV SBP >160 Last administered on 20:19; Admin Dose 10 MG; Start 05/20/17 at 19:00 Gabapentin (Neurontin) 300 mg TID PO Last administered on 05/22/17 12:17; Admin Dose 300 MG; Start 05/20/17 at 21:00 Quetiapine Fumarate (Seroquel) 300 mg QHS PO Last administered on 05/21/17 20: 37; Admin Dose 300 MG; Start 05/20/17 at 21:00 Clonazepam (Klonopin) 0.5 mg Q8H PRN PO ANXIETY Last administered on 05/22/17 14:51; Admin Dose 0.5 MG; Start 05/20/17 at 19:00 Hydrochlorothiazide (Hydrochlorothiazide) 25 mg DAILY PO Last administered on 09:24; Admin Dose 25 MG; Start 05/20/17 at 19:00 Citalopram Hydrobromide (Celexa) 20 mg DAILY PO Last administered on 05/22/17 09:24; Admin Dose 20 MG; Start 05/21/17 at 09:00 Clonidine (Catapres) 0.1 mg Q8 PRN PO sbp>160; Start 05/20/17 at 22:30 Levofloxacin (Levaquin) 750 mg DAILY@06 PO Last administered on 05/22/17 06:21 ; Admin Dose 750 MG; Start 05/21/17 at 14:00 Lisinopril (Zestril) 10 mg DAILY PO Last administered on 05/22/17 14:51; Admin Dose 10 MG; Start 05/22/17 at 13:00 FANTASMA GARZON May 22, 2017 16:48
[2017-05-22] MEDS: QUETIAPINE 100 MG TAB PO SCH (22:19)
[2017-05-23] MEDS: clonAZEPAM 0.5 MG TAB PO PRN (05:37)
[2017-05-23] MEDS: LEVOFLOXACIN 750 MG TABLET PO SCH (05:37)
[2017-05-23] MEDS: oxyCODONE 5 MG TAB PO PRN (08:45)
[2017-05-23 08:55] VITALS: BP 130/76; PULSE 78
[2017-05-23] MEDS: HYDROCHLOROTHIAZIDE 25 MG TAB PO SCH (08:56)
[2017-05-23] MEDS: AMLODIPINE 10 MG TAB PO SCH (08:56)
[2017-05-23] MEDS: GABAPENTIN 300 MG CAP PO SCH ×2 (08:56→12:59)
[2017-05-23] MEDS: CITALOPRAM 20 MG TAB PO SCH (08:56)
[2017-05-23] MEDS: LISINOPRIL 10 MG TAB PO SCH (08:56)
[2017-05-23 10:58] LABS: BASOPHILS % 0.8 % (0.0-2.0); EOSINOPHILS # 0.2 10^3/ul (0.0-0.5); EOSINOPHILS % 5.1 % (0.0-7.0); HEMATOCRIT 33.9 % (37.0-47.0); HEMOGLOBIN 10.3 g/dl (12.0-16.0); LYMPHOCYTES % 29.2 % (15.0-51.0); MEAN CORPUSCULAR HGB CONC 30.4 g/dl (32.0-37.0); MEAN CORPUSCULAR VOLUME 72.3 fl (82.0-101.0); MEAN PLATELET VOLUME 9.8 fl (7.4-10.4); MONOCYTE # 0.4 10^3/ul (0.3-0.9); MONOCYTES % 9.9 % (0.0-11.0); NEUTROPHIL # 1.9 10^3/ul (1.6-7.5); NEUTROPHILS % 54.7 % (39.0-77.0); PLATELET COUNT 241 10^3/UL (140-415); RED BLOOD COUNT 4.69 10^6/ul (4.20-5.40); RED CELL DISTRIBUTION WIDTH 15.9 % (11.5-14.5); WHITE BLOOD COUNT 3.5 10^3/ul (4.8-10.8)
[2017-05-23 10:59] LABS: BASOPHILS % 0.9 % (0.0-2.0); EOSINOPHILS # 0.2 10^3/ul (0.0-0.5); EOSINOPHILS % 5.5 % (0.0-7.0); HEMATOCRIT 33.3 % (37.0-47.0); HEMOGLOBIN 10.2 g/dl (12.0-16.0); LYMPHOCYTES % 28.4 % (15.0-51.0); MEAN CORPUSCULAR HEMOGLOBIN 22.2 pg (29.0-33.0); MEAN CORPUSCULAR HGB CONC 30.6 g/dl (32.0-37.0); MEAN CORPUSCULAR VOLUME 72.4 fl (82.0-101.0); MEAN PLATELET VOLUME 9.7 fl (7.4-10.4); MONOCYTE # 0.4 10^3/ul (0.3-0.9); MONOCYTES % 10.1 % (0.0-11.0); NEUTROPHIL # 1.9 10^3/ul (1.6-7.5); NEUTROPHILS % 54.8 % (39.0-77.0); PLATELET COUNT 236 10^3/UL (140-415); RED CELL DISTRIBUTION WIDTH 15.8 % (11.5-14.5); WHITE BLOOD COUNT 3.5 10^3/ul (4.8-10.8)
[2017-05-23 11:22] LABS: ALBUMIN 3.8 g/dl (3.3-4.9); ALBUMIN/GLOBULIN RATIO 1.22; CALCIUM 9.4 mg/dl (8.4-10.2); CREATININE 0.93 mg/dl (0.44-1.00); POTASSIUM 3.9 mmol/L (3.5-5.1); TOTAL PROTEIN 6.9 g/dl (6.1-8.1)
[2017-05-23 11:25] LABS: CALCIUM 9.4 mg/dl (8.4-10.2); CREATININE 0.91 mg/dl (0.44-1.00); MAGNESIUM 1.7 mg/dl (1.7-2.5); PHOSPHORUS 3.9 mg/dl (2.5-4.9); POTASSIUM 3.9 mmol/L (3.5-5.1)
[2017-05-23] MEDS ORDERED: NICOTINE (21 MG/24 HR) PATCH TRANSDERM SCH (12:30)
--- NOTE | 2017-05-23 13:42 | PDOCDIS ---
Discharge Instructions CONDITION Patient Condition: Fair FOLLOW UP/APPOINTMENTS Follow-up Plan 1. Please follow up with your primary care provider as soon as possible 2. Please follow up with a neurologist for management of seizures 3. Please follow up with Dr. Jeong or Dr. Hawthorne for results of EEG 4. Take all medications as directed 5. Stay away from illegal substances. FANTASMA GARZON May 23, 2017 13:41
[2017-05-23] MEDS ORDERED: GABA300C16 PO (13:45)
[2017-05-23] MEDS ORDERED: QUET100T32 PO (13:45)
[2017-05-23] MEDS ORDERED: AMLO-147 PO (13:45)
[2017-05-23] MEDS ORDERED: LISI20TA11 PO (13:45)
[2017-05-23] MEDS ORDERED: CITA20TA11 PO (13:45)
[2017-05-23] MEDS ORDERED: LEVO750T25 PO (13:45)
[2017-05-23] MEDS ORDERED: ADV25050 INHALATION (13:57)
--- NOTE | 2017-05-23 13:58 | DS ---
Date/Time of Note Date/Time of Note DATE: 05/23/17 TIME: 13:56 Discharge Summary Admission/Discharge Info Admit Date/Time May 20, 2017 at 16:00 Discharge Date/Time Hx of Present Illness Patient is a 57-year-old female who is a very poor historian and mumbling and states he is homeless, who is brought in by ambulance for altered mental status. Last thing patient remembers is waiting in line at [facility] for her prescriptions and then she remembers the hospital. Patient states that she has recently been having more seizures and has not been taking her previously was a medication due to side effects and toxicity. Patient states that she was at toxic levels with Dilantin and she had bad side effects to Keppra. Patient states that she takes all her other medications including blood pressure medications except for the past few days. Patient has multiple complaints and is very difficult to pinpoint any one issue, however patient can be reoriented and states that she does not really know why she is in the hospital and wants to go home. Patient freely admits to drug use in the past including heroin and IV drug use, states she has hepatitis B and C and cirrhosis. Currently patient is resting comfortably and has no acute complaints and states she feels with her normal limits, no shortness of breath or chest pain, no confusion at this time. No nausea vomiting. No headache. PMH: IV drug use, hepatitis B, hepatitis C, hypertension, cirrhosis, epilepsy, recreational drug use, mood disorder, anxiety PSH: Bilateral lumpectomy in the , tubal ligation Social: Positive for smoking, denies drinking, occasional drugs most recently meth Meds: Norvasc, clonidine, Klonopin, Seroquel, Celexa, hydrochlorothiazide, [place] [facility] Course Patient is a 57-year-old female with past medical history of IV drug abuse, hepatitis B, hepatitis C, hypertension and questionable epilepsy who presented to [facility] for supposed altered mental status. Over the course of patient's admission patient was evaluated by neurology and patient had MRI done which did not show any acute deficits or issues, and the original diagnosis is possible seizure causing altered mental status became less likely as patient recently took methamphetamine and likely had hypertensive emergency as shown by her uncontrolled blood pressure. Patient had EEG done as well as MRI. Patient will follow-up in the outpatient setting for EEG results per neurology. Patient had no seizures during this admission and her medications were adjusted appropriately. Some of her previous hypertensive medications including hydrochlorthiazide appears to be volume depleted her, will be switched with lisinopril and amlodipine. Clonidine, which she was taking inappropriately, once a day scheduled, will also be stopped. Patient will also be discharged with her psych occasions including Celexa, Seroquel. At this time it is questionable patient has true epilepsy versus symptoms of mood disorder in years of drug abuse. Patient does have a primary care provider and will follow-up as soon as possible. Patient's initial chest x-ray did show questionable pneumonia and will finish out her course of Levaquin for 2 more days. Altered mental status, resolved Seizures, hx of Elevated ammonia Hypertensive urgency, emergency Methamphetamine use Hepatitis B Hepatitis C Questionable multifocal pneumonia Anxiety Mood disorder Hypertension History of breast cancer Home Meds Active Scripts Quetiapine Fumarate* (Quetiapine Fumarate*) 100 Mg Tablet, 300 MG PO QHS for 30 Days, #30 TAB 2 Refills Prov:FANTASMA GARZON 05/23/17 Gabapentin* (Gabapentin*) 300 Mg Capsule, 300 MG PO TID for 30 Days, #90 CAP 2 Refills Prov:FANTASMA GARZON 05/23/17 Citalopram Hydrobromide* (Celexa*) 20 Mg Tablet, 20 MG PO DAILY for 30 Days, # 30 TAB 2 Refills Prov:FANTASMA GARZON 05/23/17 Lisinopril* (Lisinopril*) 20 Mg Tablet, 20 MG PO DAILY for 30 Days, #30 TAB 2 Refills Prov:FANTASMA GARZON 05/23/17 Amlodipine Besylate* (Amlodipine Besylate*) 10 Mg Tablet, 10 MG PO DAILY for 30 Days, #30 TAB 2 Refills Prov:FANTASMA GARZON 05/23/17 Levofloxacin* (Levaquin*) 750 Mg Tablet, 750 MG PO DAILY@06 for 2 Days, #2 TAB Prov:FANTASMA GARZON 05/23/17 Discontinued Reported Medications Hydrochlorothiazide* (Hydrochlorothiazide*) 25 Mg Tab, 25 MG PO DAILY, TAB 01/10/15 Methocarbamol* (Methocarbamol*) 500 Mg Tablet, 500 MG PO BID, TAB 01/10/15 Levothyroxine Sodium* (Levothyroxine Sodium*) 50 Mcg Tablet, 50 MCG PO AC BREAKFAST, TAB 5/18/15 Buspirone Hcl* (Buspirone Hcl*) 15 Mg Tablet, 30 MG PO QHS, TAB 01/10/15 Ferrous Sulfate* (Ferrous Sulfate*) 325 Mg Tabec, 325 MG PO BID, TAB 01/10/15 Methadone Hcl* (Methadone Hcl*) 10 Mg/5 Ml Solution, 18 MG PO DAILY, ML 01/10/15 Gabapentin* (Gabapentin*) 300 Mg Capsule, 300 MG PO BID, CAP 01/10/15 Clonazepam* (Clonazepam*) 1 Mg Tablet, 1 MG PO BID Y for ANXIETY, TAB 01/10/15 Bupropion Hcl* (Bupropion Hcl*) 100 Mg Tablet, 100 MG PO BID, TAB 01/10/15 Citalopram Hydrobromide (Celexa) 40 Mg Tablet, 40 MG PO DAILY 02/03/12 Quetiapine Fumarate* (Seroquel*) 300 Mg Tablet, 300 MG PO HS 02/03/12 Baclofen (Lioresal) 10 Mg Tab, 10 MG PO TID 02/03/12 Amlodipine Besylate* (Norvasc*) 10 Mg Tablet, DAILY 10/03/10 Discontinued Scripts Hydrochlorothiazide* (Hydrochlorothiazide*) 25 Mg Tab, 25 MG PO DAILY, #30 TAB Prov:FELY MARTINEZ MD 05/10/17 Ibuprofen* (Motrin*) 600 Mg Tab, 600 MG PO Q6H Y for PAIN, #20 TAB Prov:DARRYL MCCANN MD 05/10/17 Gabapentin* (Neurontin*) 300 Mg Capsule, 300 MG PO DAILY for 30 Days, CAP Prov:FELY MARTINEZ MD 05/05/17 Clonazepam* (Klonopin*) 1 Mg Tablet, 1 MG PO Q8H Y for ANXIETY, #10 TAB Prov:FELY MARTINEZ MD 05/05/17 Amlodipine Besylate* (Norvasc*) 5 Mg Tablet, 10 MG PO DAILY, #60 TAB Prov:FELY MARTINEZ MD 05/05/17 Naproxen* (Naproxen*) 500 Mg Tablet, 500 MG PO BID Y for PAIN, #14 TAB Prov:IESHA FISH DO 11/18/16 Methocarbamol* (Robaxin*) 500 Mg Tab, 500 MG PO Q8, #14 TAB Prov:IESHA FISH DO 11/18/16 Docusate Sodium* (Colace*) 100 Mg Capsule, 100 MG PO DAILY, #30 CAP Prov:ETELVINA DOMÍNGUEZ 11/01/16 Clonazepam* (Clonazepam*) 1 Mg Tablet, 1 MG PO DAILY Y for ANXIETY for 14 Days, TAB Prov:ETELVINA DOMÍNGUEZC 11/01/16 Ferrous Sulfate* (Ferrous Sulfate*) 325 Mg Tabec, 325 MG PO DAILY for 30 Days, TAB Prov:ETELVINA DOMÍNGUEZC 11/01/16 Amlodipine Besylate* (Norvasc*) 10 Mg Tablet, 10 MG PO DAILY for 30 Days, TAB Prov:ETELVINA DOMÍNGUEZ 11/01/16 Amlodipine Besylate* (Norvasc*) 10 Mg Tablet, 10 MG PO DAILY, #30 TAB Prov:GLORIA TILLEY MD 10/25/16 Ferrous Sulfate* (Ferrous Sulfate*) 325 Mg Tabec, 325 MG PO DAILY, #21 TAB Prov:IESHA FISH DO 10/25/16 Naproxen* (Naproxen*) 500 Mg Tablet, 500 MG PO BID, #6 TAB Prov:IESHA FISH DO 10/25/16 Docusate Sodium* (Colace*) 100 Mg Capsule, 100 MG PO TID, #30 CAP Prov:IESHA FISH DO 10/25/16 Polyethylene Glycol* (Miralax*) 17 Gm Powd.pack, 17 GM PO DAILY, #7 Prov:IESHA FISH DO 10/25/16 Magnesium Citrate* (Magnesium Citrate*) 296 Ml Solution, 296 ML PO ONCE, #1 BOTTLE Prov:IESHA FISH DO 10/25/16 Tramadol HCl (Tramadol HCl) 50 Mg Tablet, 50 MG PO Q4 Y for PAIN, #10 TAB Prov:ELSIE HERNANDES 10/03/16 Clonazepam* (Clonazepam*) 1 Mg Tablet, 1 MG PO BID Y for ANXIETY, #6 TAB Prov:FELY MARTINEZ MD 07/16/15 Hydrochlorothiazide* (Hydrochlorothiazide*) 25 Mg Tab, 25 MG PO DAILY for 14 Days, TAB Prov:FELY MARTINEZ MD 07/16/15 Levetiracetam* (Keppra*) 500 Mg Tablet, 500 MG PO DAILY for 14 Days, TAB Prov:FELY MARTINEZ MD 07/16/15 Amlodipine Besylate* (Norvasc*) 10 Mg Tablet, 10 MG PO DAILY, #14 TAB Prov:FELY MARTINEZ MD 07/16/15 Cephalexin* (Keflex*) 500 Mg Capsule, 500 MG PO QID for 7 Days, CAP Prov:FELY MARTINEZ MD 07/16/15 Sulfamethoxazole-Trimethoprim* (Bactrim* DS) 800-160 Mg Tab, 1 TAB PO BID for 7 Days, TAB Prov:FELY MARTINEZ MD 07/16/15 Amlodipine Besylate* (Amlodipine Besylate*) 10 Mg Tablet, 10 MG PO DAILY, #10 TAB Prov:IESHA FISH DO 04/21/15 Follow-up Plan 1. Please follow up with your primary care provider as soon as possible 2. Please follow up with a neurologist for management of seizures 3. Please follow up with Dr. Jeong or Dr. Hawthorne for results of EEG 4. Take all medications as directed 5. Stay away from illegal substances. Primary Care Provider Care Physician No Primary Time spent on discharge: > 30 minutes Pending Labs Laboratory Tests Test 05/23/17 10:18 05/23/17 12:34 White Blood Count 3.510^3/ul (4.8-10.8) Red Blood Count 4.6010^6/ul (4.20-5.40) Hemoglobin 10.2g/dl (12.0-16.0) Hematocrit 33.3% (37.0-47.0) Mean Corpuscular Volume 72.4fl (82.0-101.0) Mean Corpuscular Hemoglobin 22.2pg (29.0-33.0) Mean Corpuscular Hemoglobin Concent 30.6g/dl (32.0-37.0) Red Cell Distribution Width 15.8% (11.5-14.5) Platelet Count 93272^3/UL (140-415) Mean Platelet Volume 9.7fl (7.4-10.4) Neutrophils % 54.8% (39.0-77.0) Lymphocytes % 28.4% (15.0-51.0) Monocytes % 10.1% (0.0-11.0) Eosinophils % 5.5% (0.0-7.0) Basophils % 0.9% (0.0-2.0) Nucleated Red Blood Cells % 0.0/100WBC (0.0-0.0) Neutrophils # 1.910^3/ul (1.6-7.5) Lymphocytes # 1.010^3/ul (0.8-2.9) Monocytes # 0.410^3/ul (0.3-0.9) Eosinophils # 0.210^3/ul (0.0-0.5) Basophils # 0.010^3/ul (0.0-0.1) Nucleated Red Blood Cells # 0.010^3/ul (0.0-0.0) Sodium Level 138mmol/L (135-144) Potassium Level 3.9mmol/L (3.5-5.1) Chloride Level 100mmol/L (97-110) Carbon Dioxide Level 32mmol/L (21-31) Anion Gap 10 (8-16) Blood Urea Nitrogen 36mg/dl (7-20) Creatinine 0.93mg/dl (0.44-1.00) Glucose Level 58mg/dl (70-220) Calcium Level 9.4mg/dl (8.4-10.2) Phosphorus Level 3.9mg/dl (2.5-4.9) Magnesium Level 1.7mg/dl (1.7-2.5) Total Bilirubin 0.0mg/dl (0.2-1.3) Direct Bilirubin 0.00mg/dl (0.00-0.20) Indirect Bilirubin 0.0mg/dl (0-1.1) Aspartate Amino Transf (AST/SGOT) 20IU/L (15-46) Alanine Aminotransferase (ALT/SGPT) 32IU/L (13-69) Alkaline Phosphatase 66IU/L (42-121) Total Protein 6.9g/dl (6.1-8.1) Albumin 3.8g/dl (3.3-4.9) Globulin 3.10g/dl (1.3-3.2) Albumin/Globulin Ratio 1.22 Lab Scanned Report REFERENCE [id number] FANTASMA GARZON May 23, 2017 13:57
[2017-05-23 14:00] VITALS: BP 130/90; PULSE 98; RESP 18
[2017-05-24] MEDS ORDERED: LISINOPRIL 20 MG TAB PO SCH (09:00)
[2017-05-24 13:12] LABS: HEPATITIS B DELTA ANTIBODY NEGATIVE
== END 2017-05-23 15:15 | disposition home or self-care (01) | DRG 304 ==
LOC: E/R 11:34 → TEL 16:00 → MS2 05-22 23:58
PROVIDERS: ADMIT Internal Medicine; ATTEND Internal Medicine
DX: I16.1 Hypertensive emergency (principal); G93.40 Encephalopathy, unspecified; J18.9 Pneumonia, unspecified organism; R56.9 Unspecified convulsions; B19.10 Unspecified viral hepatitis B without hepatic coma; B15.9 Hepatitis A without hepatic coma; B19.20 Unspecified viral hepatitis C without hepatic coma; F15.90 Other stimulant use, unspecified, uncomplicated; I10 Essential (primary) hypertension; Z86.73 Personal history of transient ischemic attack (TIA), and cerebral infarction without residual deficits; E87.6 Hypokalemia; F41.9 Anxiety disorder, unspecified; F39 Unspecified mood [affective] disorder; Z85.3 Personal history of malignant neoplasm of breast; Z59.0 Homelessness
CPT/HCPCS: 70450; 70551; 71010; 71020; 74176; 80048; 80053; 80306; 80307; 81001; 82140; 82550; 82728; 83010; 83540; 83605; 83615; 83735; 84100; 84436; 84443; 84479; 85025; 85045; 85610; 85730; 86692; 86703; 86704; 86706; 86708; 86709; 86803; 87040; 87086; 87340; 87522; 87536; 90686; 93005; 94664; 95819; 96365; 96366; 96375; J0360; J0692; J2060; J2543; J3370; J3475; J3480; J7050

== ENCOUNTER 2017-05-27 18:59 | Emergency (ER) | payer OTHER ==
[~2017-05-27] VITALS: Ht 152.4 cm; Wt 58.5 kg
[~2017-05-27 18:59] MED LIST changes: +ADV25050 INHALATION; -AMLO-218; -AMLO-218 PO; -AMLO5TAB4 PO; -BACL10TA PO; -BACTDS PO; -BUPR100T14 PO; -BUSP15TA3 PO; -CEPH-443 PO; -CITA-100 PO; +CITA20TA11 PO; -CLON-412 PO; -CLON1TAB3 PO; -DOCU-144 PO; -FER325 PO; -GABA300C PO; -HYDR25TA6 PO; -IBUP-1542 PO; -LEVE-5 PO; -LEVO50TA74 PO; +LEVO750T25 PO; +LISI20TA11 PO; -MAGN296S40 PO; -METH10SO PO; -METH500T PO; -METH500T8 PO; -NAPR-688 PO; -POLY17PO6 PO; +QUET100T32 PO; -QUET300T13 PO; -TRAM50TA2 PO
[2017-05-27 19:08] VITALS: Ht 152.4 cm; Wt 58.5 kg
[2017-05-27] MEDS ORDERED: LORA-441 PO (21:00)
[2017-05-27] MEDS ORDERED: GABA300C16 PO (21:00)
--- NOTE | 2017-05-27 21:10 | ERD ---
ER Documentation Chief Complaint Date/Time DATE: 05/27/17 TIME: 21:05 Chief Complaint patient wants refill of medications. HPI 57-year-old female presents here in emergency department for refill of her seizure medications, patient was admitted to the hospital, patient states that she was not given her medication for seizures, she currently takes gabapentin. Patient also takes Ativan at times for her anxiety which she was not refilled to. Patient feels like she is going to have a seizure if she does not take it, and is requesting social work help to manage with her medical condition and possible help her with resources. Patient denies any other symptoms at this time. ROS All systems reviewed and are negative except as per history of present illness. Medications Home Meds Active Scripts Lorazepam* (Ativan*) 0.5 Mg Tablet, 0.5 MG PO Q8H Y for ANXIETY, #10 TAB Prov:EVANS AMAYA NP 05/27/17 Gabapentin* (Gabapentin*) 300 Mg Capsule, 300 MG PO BID for 10 Days, CAP Prov:EVANS AMAYA NP 05/27/17 Salmeterol Xinaf/Fluticasone* (Advair*) 250-50 Diskus Inhaler, 1 INH INHALATION BID, #1 INHALER Prov:FANTASMA GARZON 05/23/17 Quetiapine Fumarate* (Quetiapine Fumarate*) 100 Mg Tablet, 300 MG PO QHS for 30 Days, #30 TAB 2 Refills Prov:FANTASMA GARZON 05/23/17 Gabapentin* (Gabapentin*) 300 Mg Capsule, 300 MG PO TID for 30 Days, #90 CAP 2 Refills Prov:FANTASMA GARZON 05/23/17 Citalopram Hydrobromide* (Celexa*) 20 Mg Tablet, 20 MG PO DAILY for 30 Days, # 30 TAB 2 Refills Prov:FANTASMA GARZON 05/23/17 Lisinopril* (Lisinopril*) 20 Mg Tablet, 20 MG PO DAILY for 30 Days, #30 TAB 2 Refills Prov:FANTASMA GARZON 05/23/17 Amlodipine Besylate* (Amlodipine Besylate*) 10 Mg Tablet, 10 MG PO DAILY for 30 Days, #30 TAB 2 Refills Prov:FANTASMA GARZON 05/23/17 Levofloxacin* (Levaquin*) 750 Mg Tablet, 750 MG PO DAILY@06 for 2 Days, #2 TAB Prov:FANTASMA GARZON 05/23/17 Discontinued Reported Medications Hydrochlorothiazide* (Hydrochlorothiazide*) 25 Mg Tab, 25 MG PO DAILY, TAB 01/10/15 Methocarbamol* (Methocarbamol*) 500 Mg Tablet, 500 MG PO BID, TAB 01/10/15 Levothyroxine Sodium* (Levothyroxine Sodium*) 50 Mcg Tablet, 50 MCG PO AC BREAKFAST, TAB 01/10/15 Buspirone Hcl* (Buspirone Hcl*) 15 Mg Tablet, 30 MG PO QHS, TAB 01/10/15 Ferrous Sulfate* (Ferrous Sulfate*) 325 Mg Tabec, 325 MG PO BID, TAB 01/10/15 Methadone Hcl* (Methadone Hcl*) 10 Mg/5 Ml Solution, 18 MG PO DAILY, ML 01/10/15 Clonazepam* (Clonazepam*) 1 Mg Tablet, 1 MG PO BID Y for ANXIETY, TAB 01/10/15 Bupropion Hcl* (Bupropion Hcl*) 100 Mg Tablet, 100 MG PO BID, TAB 01/10/15 Citalopram Hydrobromide (Celexa) 40 Mg Tablet, 40 MG PO DAILY 02/03/12 Quetiapine Fumarate* (Seroquel*) 300 Mg Tablet, 300 MG PO HS 02/03/12 Baclofen (Lioresal) 10 Mg Tab, 10 MG PO TID 02/03/12 Amlodipine Besylate* (Norvasc*) 10 Mg Tablet, DAILY 10/03/10 Discontinued Scripts Hydrochlorothiazide* (Hydrochlorothiazide*) 25 Mg Tab, 25 MG PO DAILY, #30 TAB Prov:FELY MARTINEZ MD 05/10/17 Ibuprofen* (Motrin*) 600 Mg Tab, 600 MG PO Q6H Y for PAIN, #20 TAB Prov:DARRYL MCCANN MD 05/10/17 Gabapentin* (Neurontin*) 300 Mg Capsule, 300 MG PO DAILY for 30 Days, CAP Prov:FELY MARTINEZ MD 05/05/17 Clonazepam* (Klonopin*) 1 Mg Tablet, 1 MG PO Q8H Y for ANXIETY, #10 TAB Prov:FELY MARTINEZ MD 05/05/17 Amlodipine Besylate* (Norvasc*) 5 Mg Tablet, 10 MG PO DAILY, #60 TAB Prov:FELY MARTINEZ MD 05/05/17 Naproxen* (Naproxen*) 500 Mg Tablet, 500 MG PO BID Y for PAIN, #14 TAB Prov:IESHA FISH DO 11/18/16 Methocarbamol* (Robaxin*) 500 Mg Tab, 500 MG PO Q8, #14 TAB Prov:IESHA FISH DO 11/18/16 Docusate Sodium* (Colace*) 100 Mg Capsule, 100 MG PO DAILY, #30 CAP Prov:ETELVINA DOMÍNGUEZ PA-C 11/01/16 Clonazepam* (Clonazepam*) 1 Mg Tablet, 1 MG PO DAILY Y for ANXIETY for 14 Days, TAB Prov:ETELVINA DOMÍNGUEZ-C 11/01/16 Ferrous Sulfate* (Ferrous Sulfate*) 325 Mg Tabec, 325 MG PO DAILY for 30 Days, TAB Prov:ETELVINA DOMÍNGUEZ-C 11/01/16 Amlodipine Besylate* (Norvasc*) 10 Mg Tablet, 10 MG PO DAILY for 30 Days, TAB Prov:ETELVINA DOMÍNGUEZ PA-C 11/01/16 Amlodipine Besylate* (Norvasc*) 10 Mg Tablet, 10 MG PO DAILY, #30 TAB Prov:GLORIA TILLEY MD 10/25/16 Ferrous Sulfate* (Ferrous Sulfate*) 325 Mg Tabec, 325 MG PO DAILY, #21 TAB Prov:ABEIESHA 10/25/16 Naproxen* (Naproxen*) 500 Mg Tablet, 500 MG PO BID, #6 TAB Prov:IESHA FISH 10/25/16 Docusate Sodium* (Colace*) 100 Mg Capsule, 100 MG PO TID, #30 CAP Prov:IESHA FISH DO 10/25/16 Polyethylene Glycol* (Miralax*) 17 Gm Powd.pack, 17 GM PO DAILY, #7 Prov:ABEIESHA 10/25/16 Magnesium Citrate* (Magnesium Citrate*) 296 Ml Solution, 296 ML PO ONCE, #1 BOTTLE Prov:ABEIESHA 10/25/16 Tramadol HCl (Tramadol HCl) 50 Mg Tablet, 50 MG PO Q4 Y for PAIN, #10 TAB Prov:ELSIE HERNANDESRobles 10/03/16 Clonazepam* (Clonazepam*) 1 Mg Tablet, 1 MG PO BID Y for ANXIETY, #6 TAB Prov:FELY MARTINEZ MD 07/16/15 Hydrochlorothiazide* (Hydrochlorothiazide*) 25 Mg Tab, 25 MG PO DAILY for 14 Days, TAB Prov:FELY MARTINEZ MD 07/16/15 Levetiracetam* (Keppra*) 500 Mg Tablet, 500 MG PO DAILY for 14 Days, TAB Prov:FELY MARTINEZ MD 07/16/15 Amlodipine Besylate* (Norvasc*) 10 Mg Tablet, 10 MG PO DAILY, #14 TAB Prov:FELY MARTINEZ MD 07/16/15 Cephalexin* (Keflex*) 500 Mg Capsule, 500 MG PO QID for 7 Days, CAP Prov:FELY MARTINEZ MD 07/16/15 Sulfamethoxazole-Trimethoprim* (Bactrim* DS) 800-160 Mg Tab, 1 TAB PO BID for 7 Days, TAB Prov:FELY MARTINEZ MD 07/16/15 Amlodipine Besylate* (Amlodipine Besylate*) 10 Mg Tablet, 10 MG PO DAILY, #10 TAB Prov:IESHA FISH DO 04/21/15 Allergies Allergies: Coded Allergies: acetaminophen (Verified Allergy, Unknown, RASH, 04/20/15) haloperidol (Verified Allergy, Unknown, 04/20/15) hydrocodone bit (Verified Allergy, Unknown, RASH, 04/20/15) ketorolac tromethamine (Verified Allergy, Unknown, 04/20/15) PMhx/Soc History of Surgery: Yes (LUMPECTOMY ON BOTH BREAST) Anesthesia Reaction: No Hx Neurological Disorder: Yes (STROKE) Hx Respiratory Disorders: Yes (COPD) Hx Cardiac Disorders: Yes (HEART ATTACK) Hx Psychiatric Problems: Yes (ANXIETY, DEPRESSION) Hx Miscellaneous Medical Probl: Yes (HEPATITIS B, C) Hx Alcohol Use: No Hx Substance Use: No Hx Tobacco Use: No Smoking Status: Current every day smoker FmHx Family History: No coronary disease, No diabetes, No other Physical Exam Vitals Vital Signs Date Time Temp Pulse Resp B/P Pulse Ox O2 Delivery O2 Flow Rate FiO2 05/27/17 19:08 98.2 98 20 117/74 99 Physical Exam GENERAL: The patient is well developed and appropriate for usual state of health, in no apparent distress. CHEST: Clear to auscultation bilaterally. There are no rales, wheezes or rhonchi. HEART: Regular rate and rhythm. No murmurs, clicks, rubs or gallops. No S3 or S4. ABDOMEN: Soft, nontender and nondistended. Good bowel sounds. No rebound or guarding. No gross peritonitis. No gross organomegaly or masses. No Ramsey sign or McBurney point tenderness. BACK: No midline or flank tenderness. EXTREMITIES: Equal pulses bilaterally. There is no peripheral clubbing, cyanosis or edema. No focal swelling or erythema. Full range of motion. Grossly neurovascularly intact. NEURO: Alert and oriented. Cranial nerves 2-12 intact. Motor strength in all 4 extremities with 5/5 strength. Sensation grossly intact. Normal speech and gait. SKIN: There is no apparent rash or petechia. The skin is warm and dry. HEMATOLOGIC AND LYMPHATIC: There is no evidence of excessive bruising or lymphedema. No gross cervical, axillary, or inguinal lymphadenopathy. PSYCH: Patient anxious, flustered appearance, cooperative, not verbalizing homicidal or suicidal ideation. Results 24 hrs Current Medications Medications (Trade) Dose Ordered Sig/Dorina Route PRN Reason Start Time Stop Time Status Last Admin Dose Admin Lorazepam (Ativan) 1 mg ONCE ONCE PO 05/27/17 21:30 05/27/17 21:31 ativan was given here in ER Social Consult was requested for this patient. Procedures/MDM Medical decision making: Patient is medication refill of her seizure medication , the gabapentin was refilled, patient was also given pupils of Ativan for her anxiety. Patient was advised to see site specialist and neurologist specialist for further management of his seizures at this time, no seizure activity, patient neurologic exam is normal, patient does appear very anxious and flustered, is requesting social service consult, social service was contacted for evaluation and help with resources. Patient was advised to return to emergency department for any worsening symptoms. I Discussed this case with my attending physician, Dr. Mesa who agrees with plan at this time Disposition: Home. Stable. Departure Diagnosis: Primary Impression: Medication refill Condition: Stable Patient Instructions: Taking Medicine Safely Referrals: COMMUNITY CLINICS YOU HAVE RECEIVED A MEDICAL SCREENING EXAM AND THE RESULTS INDICATE THAT YOU DO NOT HAVE A CONDITION THAT REQUIRES URGENT TREATMENT IN THE EMERGENCY DEPARTMENT. FURTHER EVALUATION AND TREATMENT OF YOUR CONDITION CAN WAIT UNTIL YOU ARE SEEN IN YOUR DOCTORS OFFICE WITHIN THE NEXT 1-2 DAYS. IT IS YOUR RESPONSIBILITY TO MAKE AN APPOINTMENT FOR FOLOW-UP CARE. IF YOU HAVE A PRIMARY DOCTOR --you should call your primary doctor and schedule an appointment IF YOU DO NOT HAVE A PRIMARY DOCTOR YOU CAN CALL OUR PHYSICIAN REFERRAL HOTLINE AT IF YOU CAN NOT AFFORD TO SEE A PHYSICIAN YOU CAN CHOSE FROM THE FOLLOWING [facility] [address] [facility] [address] [facility] [facility] [address] [facility] [facility] [address] [facility]. [facility] [address] [facility]. [facility] [address] [facility]. [facility] YOU HAVE RECEIVED A MEDICAL SCREENING EXAM AND THE RESULTS INDICATE THAT YOU DO NOT HAVE A CONDITION THAT REQUIRES URGENT TREATMENT IN THE EMERGENCY DEPARTMENT. FURTHER EVALUATION AND TREATMENT OF YOUR CONDITION CAN WAIT UNTIL YOU ARE SEEN IN YOUR DOCTORS OFFICE WITHIN THE NEXT 1-2 DAYS. IT IS YOUR RESPONSIBILITY TO MAKE AN APPOINTMENT FOR FOLOW-UP CARE. IF YOU HAVE A PRIMARY DOCTOR --you should call your primary doctor and schedule and appointment IF YOU DO NOT HAVE A PRIMARY DOCTOR YOU CAN CALL OUR PHYSICIAN REFERRAL HOTLINE AT . IF YOU CAN NOT AFFORD TO SEE A PHYSICIAN YOU CAN CHOSE FROM THE FOLLOWING [facility] INSTITUTIONS: [facility] [address] [place] [address] [facility] [address] [place] [address] [facility] [address] [place] [address] EVANS AMAYA NP May 27, 2017 21:10
[2017-05-27] MEDS ORDERED: LORAZEPAM 1 MG TAB PO ONE (21:30)
== END 2017-05-27 21:30 | disposition home or self-care (01) ==
LOC: FTE 18:59
DX: Z76.0 Encounter for issue of repeat prescription (principal); J44.9 Chronic obstructive pulmonary disease, unspecified; F17.210 Nicotine dependence, cigarettes, uncomplicated
CPT/HCPCS: Z7502; Z7610; 99283

== ENCOUNTER 2017-06-28 04:32 | Emergency (ER) | payer OTHER ==
[~2017-06-28] VITALS: Ht 160 cm; Wt 56.7 kg
[~2017-06-28 04:32] MED LIST changes: +LORA-441 PO
[2017-06-28 04:37] VITALS: Ht 160 cm; Wt 56.7 kg
[2017-06-28] MEDS ORDERED: HYDROCODONE/APAP (10/325) TAB PO ONE (06:30)
--- NOTE | 2017-06-28 08:50 | ERD ---
ER Documentation Chief Complaint Chief Complaint medication refill, body pain HPI Patient is a 57-year-old female with chronic pain who presents with abdominal pain. She said it started a few days ago. She felt tired. She had pain in her throat as well. The pain is in the left lower quadrant and comes and goes. Sharp in nature. She had subjective fevers. She takes "pain meds" and needs a refill of her pain meds. Upon review of old medical records the patient has multiple visits to the ER for pain complaints. Review of the emergency department information exchange system shows visits to 4 separate emergency departments. She does not currently have a primary doctor or a pain management doctor. ROS All systems reviewed and are negative except as per history of present illness. Medications Home Meds Active Scripts Lorazepam* (Ativan*) 0.5 Mg Tablet, 0.5 MG PO Q8H Y for ANXIETY, #10 TAB Prov:EVANS AMAYA NP 05/27/17 Gabapentin* (Gabapentin*) 300 Mg Capsule, 300 MG PO BID for 10 Days, CAP Prov:EVANS AMAYA NP 05/27/17 Salmeterol Xinaf/Fluticasone* (Advair*) 250-50 Diskus Inhaler, 1 INH INHALATION BID, #1 INHALER Prov:FANTASMA GARZON 05/23/17 Quetiapine Fumarate* (Quetiapine Fumarate*) 100 Mg Tablet, 300 MG PO QHS for 30 Days, #30 TAB 2 Refills Prov:FANTASMA GARZON 05/23/17 Gabapentin* (Gabapentin*) 300 Mg Capsule, 300 MG PO TID for 30 Days, #90 CAP 2 Refills Prov:FANTASMA GARZON 05/23/17 Citalopram Hydrobromide* (Celexa*) 20 Mg Tablet, 20 MG PO DAILY for 30 Days, # 30 TAB 2 Refills Prov:FANTASMA GARZON 05/23/17 Lisinopril* (Lisinopril*) 20 Mg Tablet, 20 MG PO DAILY for 30 Days, #30 TAB 2 Refills Prov:FANTASMA GARZON 05/23/17 Amlodipine Besylate* (Amlodipine Besylate*) 10 Mg Tablet, 10 MG PO DAILY for 30 Days, #30 TAB 2 Refills Prov:FANTASMA GARZON 05/23/17 Discontinued Scripts Levofloxacin* (Levaquin*) 750 Mg Tablet, 750 MG PO DAILY@06 for 2 Days, #2 TAB Prov:FANTASMA GARZON 05/23/17 Allergies Allergies: Coded Allergies: acetaminophen (Verified Allergy, Unknown, RASH, 04/20/15) haloperidol (Verified Allergy, Unknown, 04/20/15) hydrocodone bit (Verified Allergy, Unknown, RASH, 04/20/15) ketorolac tromethamine (Verified Allergy, Unknown, 04/20/15) PMhx/Soc History of Surgery: Yes (LUMPECTOMY ON BOTH BREAST) Anesthesia Reaction: No Hx Neurological Disorder: Yes (STROKE) Hx Respiratory Disorders: Yes (COPD) Hx Cardiac Disorders: Yes (HEART ATTACK) Hx Psychiatric Problems: Yes (ANXIETY, DEPRESSION) Hx Miscellaneous Medical Probl: Yes (HEPATITIS B, C) Hx Alcohol Use: No Hx Substance Use: No Hx Tobacco Use: No Smoking Status: Former smoker FmHx Family History: No diabetes Physical Exam Vitals Vital Signs Date Time Temp Pulse Resp B/P Pulse Ox O2 Delivery O2 Flow Rate FiO2 06/28/17 04:37 97.8 88 20 160/90 99 Physical Exam Const: Moderate distress secondary to pain Head: Atraumatic Eyes: Normal Conjunctiva ENT: Normal External Ears, Nose and Mouth. Neck: Full range of motion..~ No meningismus. Resp: Clear to auscultation bilaterally Cardio: Regular rate and rhythm, no murmurs Abd: Soft, diffuse tenderness to palpation without rebound or guarding Skin: No petechiae or rashes Back: No midline or flank tenderness Ext: No cyanosis, or edema Neur: Awake and alert Results 24 hrs Current Medications Medications (Trade) Dose Ordered Sig/Dorina Route PRN Reason Start Time Stop Time Status Last Admin Dose Admin Acetaminophen/ Hydrocodone Bitart ([place] ()) 1 tab ONCE ONCE PO 06/28/17 06:30 06/28/17 06:31 DC 06/28/17 06:17 Procedures/MDM Smoking Cessation Therapy: Pt. was lectured for greater than 3 minutes on the health risks of continued smoking and the benefits of cessation. Patient is a 57-year-old female with chronic pain who presents with acute on chronic pain. I doubt significant intra-abdominal surgical process at this time and I believe outpatient management is appropriate. I do not believe she requires laboratory studies or CT scan of the abdomen and pelvis. I told her that per our chronic pain management policy that we will not give her IV or IM medications nor will we give her refills of her pain medications. The patient was given 1 dose of [place] in the emergency department and can return for any worsening symptoms. I doubt appendicitis, cholecystitis, pancreatitis, or bowel obstruction. Departure Diagnosis: Primary Impression: Abdominal pain Abdominal location: left lower quadrant Qualified Code: R10.32 - Left lower quadrant pain Additional Impression: Chronic pain Chronic pain type: other chronic pain Qualified Code: G89.29 - Other chronic pain Condition: Fair Patient Instructions: Abdominal Pain, Chronic Pain Referrals: [facility] Additional Instructions: Call your primary care doctor TOMORROW for an appointment during the next 1-2 days.See the doctor sooner or return here if your condition worsens before your appointment time. GLORIA TILLEY MD Jun 28, 2017 08:50
== END 2017-06-28 06:26 | disposition home or self-care (01) ==
LOC: FTE 04:32 → E/R 06:26
DX: R10.32 Left lower quadrant pain (principal); J44.9 Chronic obstructive pulmonary disease, unspecified; Z87.891 Personal history of nicotine dependence
CPT/HCPCS: 36415; Z7502; Z7610; 99283

== ENCOUNTER 2017-07-14 17:48 | Observation (INO) | payer OTHER ==
[~2017-07-14] VITALS: Ht 160 cm; Wt 64.6 kg
[~2017-07-14 17:48] MED LIST changes: -LEVO750T25 PO
[2017-07-14] MEDS ORDERED: ALBU8.5H3 INH (18:08)
[2017-07-14] MEDS ORDERED: ATEN-51 PO (18:08)
[2017-07-14] MEDS ORDERED: CLON0.2T5 PO (18:09)
[2017-07-14 18:31] LABS: BASOPHILS % 0.1 % (0.0-2.0); EOSINOPHILS % 0.1 % (0.0-7.0); LYMPHOCYTES # 1.8 10^3/ul (0.8-2.9); LYMPHOCYTES % 11.4 % (15.0-51.0); MEAN CORPUSCULAR HEMOGLOBIN 23.1 pg (29.0-33.0); MEAN CORPUSCULAR HGB CONC 33.3 g/dl (32.0-37.0); MEAN CORPUSCULAR VOLUME 69.4 fl (82.0-101.0); MONOCYTE # 1.2 10^3/ul (0.3-0.9); MONOCYTES % 7.6 % (0.0-11.0); NEUTROPHIL # 12.2 10^3/ul (1.6-7.5); NEUTROPHILS % 79.6 % (39.0-77.0); PLATELET COUNT 387 10^3/UL (140-415); RED BLOOD COUNT 3.46 10^6/ul (4.20-5.40); RED CELL DISTRIBUTION WIDTH 16.1 % (11.5-14.5); WHITE BLOOD COUNT 15.3 10^3/ul (4.8-10.8)
[2017-07-14] MEDS ORDERED: CEFEPIME 2GM/50 ML (PMX) 50 ML IVPB STA (18:37)
[2017-07-14] MEDS ORDERED: SODIUM CHLORIDE 0.9% 1L BAG IV* STA (18:37)
--- NOTE | 2017-07-14 18:48 | RADRPT ---
PROCEDURE: XR Chest. CLINICAL INDICATION: Chest pain TECHNIQUE: A frontal view of the chest was performed. COMPARISON: October 25, 2016 FINDINGS: There is stable mild cardiomegaly. The lungs are clear. No signs of pleural fluid or pneumothorax ar e seen. The osseous structures and soft tissues are unremarkable. IMPRESSION: No evidence for active cardiopulmonary disease. Mild cardiomegaly only. RPTAT: QQ .Maru Read MD, MD Date Time Electronically viewed and signed by .Maru Read MD, on 07/14/2017 18:48 .F/
[2017-07-14 18:52] LABS: ANION GAP 14 (8-16); BLOOD UREA NITROGEN 45 mg/dl (7-20); CALCIUM 9.5 mg/dl (8.4-10.2); CARBON DIOXIDE 28 mmol/L (21-31); CHLORIDE 103 mmol/L (97-110); CREATININE 0.77 mg/dl (0.44-1.00); GLUCOSE 113 mg/dl (70-220); POTASSIUM 4.7 mmol/L (3.5-5.1); SODIUM 140 mmol/L (135-144)
[2017-07-14] MEDS ORDERED: VANCOMYCIN 1 GM (PMX) 250 ML IVPB ONE (19:00)
[2017-07-14 19:06] LABS: TROPONIN-I < 0.012 ng/ml (0.00-0.12)
--- NOTE | 2017-07-14 19:58 | ERD ---
ER Documentation Chief Complaint Chief Complaint PT BIB WITH C/O FLU-LIKE SYMPTOMS, COUGHING HPI This is a 57-year-old female who presents via EMS. The patient is a poor historian, she is regularly visiting our emergency department and is well-known to this provider in this ER. However, today the patient is stating that she left AGAINST MEDICAL ADVICE from [facility] where she was admitted. She cannot articulate why she was admitted but she states that I should call to find out why. She presents here because she states that she left AMA despite receiving treatment, because she had to go get her keys from someplace. She now has no place to go. She called 911. She does describe a cough that is dry nonproductive. She has no other complaints currently. ROS All systems reviewed and are negative except as per history of present illness. Medications Home Meds Active Scripts Quetiapine Fumarate* (Quetiapine Fumarate*) 100 Mg Tablet, 300 MG PO QHS for 30 Days, #30 TAB 2 Refills Prov:FANTASMA GARZON 05/23/17 Citalopram Hydrobromide* (Celexa*) 20 Mg Tablet, 20 MG PO DAILY for 30 Days, # 30 TAB 2 Refills Prov:FANTASMA GARZON 05/23/17 Lisinopril* (Lisinopril*) 20 Mg Tablet, 20 MG PO DAILY for 30 Days, #30 TAB 2 Refills Prov:FANTASMA GARZON 05/23/17 Reported Medications Clonidine Hcl* (Clonidine Hcl*) 0.2 Mg Tablet, 0.2 MG PO DAILY Y for ELEVATED BLOOD PRESSURE, TAB 07/14/17 Albuterol Sulfate* (Proair HFA*) 8.5 Gm Hfa.aer.ad, 2 PUFF INH Q6H Y for WHEEZING AND SOB, #1 INHALER 07/14/17 Atenolol* (Atenolol*) 25 Mg Tablet, 25 MG PO DAILY, #30 TAB 07/14/17 Discontinued Scripts Lorazepam* (Ativan*) 0.5 Mg Tablet, 0.5 MG PO Q8H Y for ANXIETY, #10 TAB Prov:EVANS AMAYA NP 05/27/17 Gabapentin* (Gabapentin*) 300 Mg Capsule, 300 MG PO BID for 10 Days, CAP Prov:EVANS AMAYA NP 05/27/17 Salmeterol Xinaf/Fluticasone* (Advair*) 250-50 Diskus Inhaler, 1 INH INHALATION BID, #1 INHALER Prov:FANTASMA GARZON 05/23/17 Gabapentin* (Gabapentin*) 300 Mg Capsule, 300 MG PO TID for 30 Days, #90 CAP 2 Refills Prov:FANTASMA GARZON 05/23/17 Amlodipine Besylate* (Amlodipine Besylate*) 10 Mg Tablet, 10 MG PO DAILY for 30 Days, #30 TAB 2 Refills Prov:FANTASMA GARZON 05/23/17 Allergies Allergies: Coded Allergies: acetaminophen (Verified Allergy, Unknown, RASH, 07/14/17) haloperidol (Verified Allergy, Unknown, 07/14/17) hydrocodone bit (Verified Allergy, Unknown, RASH, 07/14/17) ketorolac tromethamine (Verified Allergy, Unknown, 07/14/17) PMhx/Soc History of Surgery: Yes (LUMPECTOMY ON BOTH BREAST) Anesthesia Reaction: No Hx Neurological Disorder: Yes (STROKE) Hx Respiratory Disorders: Yes (COPD) Hx Cardiac Disorders: Yes (HEART ATTACK) Hx Psychiatric Problems: Yes (ANXIETY, DEPRESSION) Hx Miscellaneous Medical Probl: Yes (HEPATITIS B, C) Hx Alcohol Use: No Hx Substance Use: No Hx Tobacco Use: No Smoking Status: Smoker,current status unk FmHx Family History: No diabetes Physical Exam Vitals Vital Signs Date Time Temp Pulse Resp B/P Pulse Ox O2 Delivery O2 Flow Rate FiO2 07/14/17 18:07 97.8 122 18 141/80 98 Physical Exam General: Disheveled, no significant distress Head: Normocephalic, atraumatic. Eyes: Pupils equally reactive, EOM intact ENT: Moist mucous membranes Neck: Supple, no lymphadenopathy Respiratory: Lungs clear bilaterally, no distress Cardiovascular: RRR, no murmurs, rubs, or gallops Abdominal: Soft, non-tender, non-distended, no peritoneal signs : Deferred MSK: No edema, no unilateral swelling, 5/5 strength Neurologic: Alert and oriented, moving all extremities, normal speech, no focal weakness, no cerebellar signs Skin: No rash Psych: Normal mood Result Diagram: 07/14/17 1825 07/14/17 182 Results 24 hrs Laboratory Tests Test 07/14/17 18:25 White Blood Count 15.310^3/ul Red Blood Count 3.4610^6/ul Hemoglobin 8.0g/dl Hematocrit 24.0% Mean Corpuscular Volume 69.4fl Mean Corpuscular Hemoglobin 23.1pg Mean Corpuscular Hemoglobin Concent 33.3g/dl Red Cell Distribution Width 16.1% Platelet Count 04006^3/UL Mean Platelet Volume 10.0fl Neutrophils % 79.6% Lymphocytes % 11.4% Monocytes % 7.6% Eosinophils % 0.1% Basophils % 0.1% Nucleated Red Blood Cells % 0.0/100WBC Neutrophils # 12.210^3/ul Lymphocytes # 1.810^3/ul Monocytes # 1.210^3/ul Eosinophils # 0.010^3/ul Basophils # 0.010^3/ul Nucleated Red Blood Cells # 0.010^3/ul Sodium Level 140mmol/L Potassium Level 4.7mmol/L Chloride Level 103mmol/L Carbon Dioxide Level 28mmol/L Anion Gap 14 Blood Urea Nitrogen 45mg/dl Creatinine 0.77mg/dl Glucose Level 113mg/dl Lactic Acid Level 1.9mmol/L Calcium Level 9.5mg/dl Troponin I < 0.012ng/ml Current Medications Medications (Trade) Dose Ordered Sig/Dorina Route PRN Reason Start Time Stop Time Status Last Admin Dose Admin Sodium Chloride 1860 ml 1,860 ml BOLUS OVER 2 HOURS STAT IV* 07/14/17 18:37 07/14/17 18:38 DC 07/14/17 19:33 Cefepime HCl 50 ml @ 100 mls/hr ONCE STAT IVPB 07/14/17 18:37 07/14/17 19:06 DC 07/14/17 19:34 Vancomycin HCl (Vancocin) 250 ml @ 125 mls/hr ONCE ONCE IVPB 07/14/17 19:00 07/14/17 20:59 Ondansetron HCl (Zofran Inj) 4 mg BRIDGE ORDER PRN IV NAUSEA AND/OR VOMITING 07/14/17 20:00 07/15/17 19:59 Procedures/MDM EKG, MONITORS, & DIAGNOSTIC IMAGING: EKG: I reviewed and interpreted a 12-lead EKG. Rhythm: Sinus tachycardia Ectopy: None Intervals: No abnormalities ST segments: No elevations or depressions T waves: No contiguous inversions Chest x-ray: I reviewed and interpreted a 1 view of the chest Mediastinum: No enlargement Cardiac silhouette: No cardiomegaly Airspace: Clear lung martines bilaterally without evidence of pneumothorax Bones: No evidence of fracture LAB INTERPRETATION: Leukocytosis of 15, anemia of 8, normal lactic acid MEDICAL DECISION MAKING: The patient is a very poor historian. She gave me verbal permission to call candice massey. I was able to speak to a physician who states that the patient was admitted on 07 02 and left AGAINST MEDICAL ADVICE today. She was diagnosed with sepsis, septic shock and respiratory failure status post intubation. It appears the patient had an aspiration event. The patient regularly visits the emergency room. While her usual presentation is consistent with malingering and drug-seeking behavior this seems somewhat different. The patient recently had a complex hospital admission. The patient has a very poor social resources and outpatient follow-up. Therefore I believe screening for persistent infection including blood work, blood cultures and chest x-ray would be reasonable. If there are any abnormalities I would recommend hospitalization for further monitoring as the patient did not receive discharge planning or discharge paperwork and may not have completed her course of antibiotics. ER COURSE: The patient has leukocytosis. For this reason the patient will be admitted for further monitoring, sepsis screening. The patient has no evidence of Sirs in the emergency room at this point therefore this is not consistent with sepsis. Blood cultures been taken, the patient was given fluids and the patient was given empiric antibiotics in the form of vancomycin and cefepime. The patient will be admitted for further management. I kept the patient and/or family informed of laboratory and diagnostic imaging results throughout the emergency room course. DISPOSITION PLAN: Medical surgical admission CONSULTATION: Accepting care team and consultations: I discussed the current laboratory data, diagnostic imaging and emergency care provided. Admitting team: Dr. Almazan Admitting team indication: Insurance directed The patient does not meet sepsis criteria in the emergency department. Departure Diagnosis: Primary Impression: Healthcare-associated pneumonia Additional Impressions: Leukocytosis Leukocytosis type: unspecified Qualified Code: D72.829 - Leukocytosis, unspecified type Homelessness Condition: Stable FELY MARTINEZ MD Jul 14, 2017 19:58
[2017-07-14] MEDS ORDERED: ONDANSETRON 4 MG INJ IV PRN ×2 (20:00→23:30)
[2017-07-14 22:02] VITALS: TEMP 98.3
[2017-07-14 22:58] VITALS: Ht 160 cm; Wt 64.6 kg
[2017-07-14 23:14] VITALS: BP 116/84; RESP 18
[2017-07-14] MEDS ORDERED: CLON2TAB22 PO (23:21)
[2017-07-14] MEDS ORDERED: GABA300C PO (23:21)
[2017-07-14] MEDS ORDERED: LEVOFLOXACIN 750MG/D5W (PMX) 150 ML IVPB SCH (23:30)
[2017-07-14] MEDS ORDERED: DOCUSATE SODIUM 100 MG CAP PO PRN (23:30)
[2017-07-14] MEDS ORDERED: NACL 0.9% 3 ML SYG IV SCH (23:30)
[2017-07-14] MEDS ORDERED: BISACODYL (EC) 5 MG TAB PO PRN (23:30)
[2017-07-14] MEDS ORDERED: METHYLPREDNISOLONE 125 MG INJ IV ONE (23:30)
[2017-07-15] MEDS ORDERED: VANCOMYCIN IV PER PHARMACY XX SCH (00:30)
[2017-07-15] MEDS ORDERED: ALBUTEROL 18 GM INHALER INH PRN ×2 (00:30→15:00)
[2017-07-15] MEDS: ALBUTEROL/IPRATROPIUM (NEB) 3 ML AMP HHN SCH ×5 (00:31→18:16)
[2017-07-15] MEDS: GABAPENTIN 300 MG CAP PO SCH ×4 (01:17→21:54)
[2017-07-15 01:18] LABS: IRON 31 ug/dl (35-150)
[2017-07-15] MEDS: QUETIAPINE 100 MG TAB PO SCH ×2 (01:18→21:54)
[2017-07-15] MEDS: clonAZEPAM 0.5 MG TAB PO SCH ×3 (01:18→21:53)
[2017-07-15] MEDS: SOD CHLORIDE 0.9% 1,000 ML IV SCH ×2 (01:20→11:54)
[2017-07-15 01:27] LABS: TOTAL IRON BINDING CAPACITY 332 ug/dl (241-421)
[2017-07-15] MEDS ORDERED: AMLO-218 PO (01:32)
[2017-07-15] MEDS ORDERED: SOD CHLORIDE 0.9% 1,000 ML IV ONE (02:00)
[2017-07-15 02:22] VITALS: BP 127/83; RESP 18
--- NOTE | 2017-07-15 03:01 | HP ---
Date/Time of Note Date/Time of Note DATE: 07/15/17 TIME: 02:33 Assessment/Plan VTE Prophylaxis VTE Prophylaxis Intervention: SCD's Lines/Catheters IV Catheter Type (from [facility]): Peripheral IV Urinary Cath still in place: No Assessment/Plan Chief Complaint/Hosp Course This is a 57-year-old female being admitted to the [facility] floor for: #1 COPD exacerbation: At the current time we will continue duo nebs every 4 hours, will initiate Solu-Medrol loading dose, followed by prednisone burst for 5 days. This patient also was apparently recently hospitalized for possible pneumonia we will treat at this time with Vanco and Levaquin, she also received a dose of cefepime in the ED. At the current time chest x-ray appears normal. However she does appear to have an elevated white blood cell count. #2 leukocytosis: At the current time patient is afebrile however apparently she was recently treated in the ICU at [facility] and left AMA. She states she had possible pneumonia. Will need to obtain records from [facility]. At the current time we will treat with Vanco and Levaquin. Will check a blood culture and urine culture. Will monitor for any signs of fever or hemodynamic compromise. Will check lactate level. #3 Suspected pneumonia: At the current time the x-ray appears within normal limits, patient apparently was treated for possible pneumonia in the ED. At the current time we will treat with Levaquin and vancomycin. #4 microcytic anemia: At the current time patient's MCV is 69 of no also is her hemoglobin of 8 with the one prior in April 2017 being 10. Her BUN is also elevated at 45. She denies any bleeding at this time. Will check a fecal occult stool. Will check her hemoglobin every 6 hours. May need to get GI consultation. #5 IV drug use: Patient denies any recent drug use including methamphetamine abuse. Will check a urine drug screen nonetheless. Watch for any symptoms of withdrawal. #6 Questionable epilepsy history: Seen by neurology during her last visit and is suspected could have been secondary to her methamphetamine abuse. She did not have any seizures during her previous hospital stay. Therefore she was not put on any AEDs. #7 mood disorder: Continue home medications Seroquel, gabapentin, and Celexa. It was also noted that during her last admission she was discontinued on her clonidine as well as clonazepam however it is now back on her med association. We will need to reconcile this again during her hospital stay unfortunately as she has been taking these medications which she may have got from another facility such as [facility] or primary doctor. #8 history of hepatitis B and hepatitis C: We will check viral load. #9 DVT GI prophylaxis: SCDs, no GI prophylaxis indicated Further treatment strategy will be implemented as per the clinical course Problems: HPI/ROS Admit Date/Time Admit Date/Time Jul 14, 2017 at 19:32 Hx of Present Illness Chief complaint: Shortness of breath This is a 57-year-old female who presents via EMS. The patient is a poor historian, she is regularly visiting our emergency department and is well-known to this provider in this ER. However, today the patient is stating that she left AGAINST MEDICAL ADVICE from [facility] where she was admitted. She does not know exactly why she was admitted but she states that she was in the ICU for a couple of days. She presents here because she states that she left AMA, because she had to go get her keys from someplace. She now has no place to go. She called 911. She does describe a cough that is dry nonproductive. She is also requesting Dilaudid for pain control for her lower ribs that she has been coughin. She denies any current use of drugs. She denies any fevers at this time. of note during my examination patient is unable to speak in full sentences without needing to take her breath. Allergies: Acetaminophen, Haldol, hydrocodone, ketorolac Medications: See ALBA DAMON Const: As per HPI Eyes : No pain discharge or redness or change in visual acuity ENT: No pain, sore throat, congestion, congestion, dysphagia or discharge Respiratory: As per HPI Cardiovascular: No chest pain, palpitation, PND, or edema GI : no change in appetite, abdominal pain, nausea, vomiting, diarrhea, constipation, or change in the color his stool Genitourinary: No dysuria, hematuria, flank pain , discharge or CVA tenderness Musculoskeletal: As per HPI Skin: No rash, bruising or hives Neuro: No headache, dizziness, syncope, seizure, focal weakness Endocrine: No polyuria, polydipsia, temperature intolerance Psych: No hallucination, depression, anxiety or suicidal ideation PMH/Family/Social Past Medical History IV drug use, hepatitis B, hepatitis C, hypertension, cirrhosis, epilepsy, recreational drug use, mood disorder, anxiety Past Surgical History Bilateral lumpectomy in the , tubal ligation Social History Positive for smoking, denies drinking, occasional drugs most recently meth Smoking Status: Current every day smoker Exam/Review of Systems Vital Signs Vitals Vital Signs Date Time Temp Pulse Resp B/P Pulse Ox O2 Delivery O2 Flow Rate FiO2 07/15/17 02:22 97.6 123 18 127/83 95 07/15/17 00:36 21 07/14/17 22:02 Room Air Exam Exam General: Patient is sitting in bed in no acute distress, she is requesting pain medication HEENT: Atraumatic, normocephalic. The pupils are equal, round and reactive. Extraocular motor are intact Neck: Supple with full range of motion. No rigidity or meningismus Chest: Nontender Lungs: Coarse breath sounds bilaterally, unable to speak full sentences without needing to stop to take a breath, poor inspiratory effort bilaterally Heart: Normal S1-S2, Regular rhythm and rate. No overt murmurs appreciated Abdomen: Soft , nontender, nondistended , bowel sounds are present. No guarding no rebound tenderness , No masses or organomegaly. No costovertebral temporal angle mass Extremities: Normal to inspection, no edema no cyanosis Neurologic: Normal mental status, speech normal, cranial nerves II through XII are intact, motor and sensory are intact, no focal weakness Additional Comments PROCEDURE: XR Chest. CLINICAL INDICATION: Chest pain TECHNIQUE: A frontal view of the chest was performed. COMPARISON: October 25, 2016 FINDINGS: There is stable mild cardiomegaly. The lungs are clear. No signs of pleural fluid or pneumothorax are seen. The osseous structures and soft tissues are unremarkable. IMPRESSION: No evidence for active cardiopulmonary disease. Mild cardiomegaly only. RPTAT: QQ .Maru Read MD, Date Time Electronically viewed and signed by .Maru Read MD, on 07/14/2017 18:48 .F/ CC: FELY MARTINEZ MD EKG: Rhythm: Sinus tachycardia Ectopy: None Intervals: No abnormalities ST segments: No elevations or depressions T waves: No contiguous inversions As per ED physician documentation Labs Result Diagram: 07/14/17182407/14/171824 Medications Medications Current Medications Sodium Chloride (NS) 1,000 ml @ 80 mls/hr [id number] IV Last administered on 01:20; Admin Dose 80 MLS/HR; Start 07/14/17 at 23:24 Ondansetron HCl (Zofran Inj) 4 mg Q6H PRN IV NAUSEA AND/OR VOMITING; Start at 23:30 Docusate Sodium (Colace) 100 mg Q12H PRN PO CONSTIPATION; Start 07/14/17 at 23 :30 Bisacodyl (Dulcolax) 5 mg DAILY PRN PO CONSTIPATION; Start 07/14/17 at 23:30 Pantoprazole (Protonix Iv) 40 mg DAILY@06 IV ; Start 07/15/17 at 06:00 Prednisone 40 mg 40 mg DAILY PO ; Start 07/15/17 at 09:00 Levofloxacin/ Dextrose (Levaquin 750 Mg/ D5W 150 ml (Pmx)) 150 ml @ 100 mls/hr Q24H IVPB Last administered on 07/15/17 01:18; Admin Dose 100 MLS/HR; Start 07/14/17 at 23:30 Tramadol HCl (Ultram) 50 mg Q6H PRN PO PAIN; Start 07/14/17 at 23:30 Albuterol (Ventolin Hfa) 2 puff Q6H PRN INH WHEEZING AND SOB; Start 07/15/17 at 00:30 Atenolol (Tenormin) 25 mg DAILY PO ; Start 07/15/17 at 09:00 Citalopram Hydrobromide (Celexa) 20 mg DAILY PO ; Start 07/15/17 at 09:00 Clonidine (Catapres) 0.2 mg DAILY PRN PO ELEVATED BLOOD PRESSURE; Start at 00:30 Gabapentin (Neurontin) 300 mg TID PO Last administered on 07/15/17 01:17; Admin Dose 300 MG; Start 07/15/17 at 00:38 Quetiapine Fumarate (Seroquel) 300 mg QHS PO Last administered on 07/15/17 01 :18; Admin Dose 300 MG; Start 07/15/17 at 01:00 Clonazepam 2 mg 2 mg BID PO Last administered on 07/15/17 01:18; Admin Dose 2 MG; Start 07/15/17 at 00:30 Sodium Chloride (NS) 1,000 ml @ 1,000 mls/hr Q1H ONCE IV Last administered on 07/15/17 02:10; Admin Dose 1,000 MLS/HR; Start 07/15/17 at 02:00; Stop 07/15 at 02:59 YURY LYNN Jul 15, 2017 02:43
[2017-07-15 04:23] LABS: ADD UMIC NO; UR ASCORBIC ACID NEGATIVE (NEGATIVE); UR BILIRUBIN (Dip) NEGATIVE (NEGATIVE); UR BLOOD (Dip) NEGATIVE (NEGATIVE); UR CLARITY CLEAR (CLEAR); UR COLOR YELLOW (YELLOW); UR GLUCOSE (Dip) NEGATIVE (NEGATIVE); UR KETONES (Dip) NEGATIVE (NEGATIVE); UR LEUKOCYTE ESTERASE (Dip) NEGATIVE Leu/ul (NEGATIVE); UR NITRITE (Dip) NEGATIVE (NEGATIVE); UR SPECIFIC GRAVITY (Dip) 1.014 (1.003-1.030); UR TOTAL PROTEIN (Dip) NEGATIVE (NEGATIVE); UR UROBILINOGEN (Dip) NEGATIVE (NEGATIVE)
[2017-07-15 05:06] LABS: BASOPHILS % 0.1 % (0.0-2.0); EOSINOPHILS % 0.2 % (0.0-7.0); HEMATOCRIT 24.7 % (37.0-47.0); HEMOGLOBIN 7.8 g/dl (12.0-16.0); LYMPHOCYTES # 0.7 10^3/ul (0.8-2.9); LYMPHOCYTES % 6.1 % (15.0-51.0); MEAN CORPUSCULAR HEMOGLOBIN 22.5 pg (29.0-33.0); MEAN CORPUSCULAR HGB CONC 31.6 g/dl (32.0-37.0); MEAN CORPUSCULAR VOLUME 71.2 fl (82.0-101.0); MEAN PLATELET VOLUME 10.1 fl (7.4-10.4); MONOCYTE # 0.2 10^3/ul (0.3-0.9); MONOCYTES % 2.1 % (0.0-11.0); NEUTROPHIL # 9.6 10^3/ul (1.6-7.5); PLATELET COUNT 372 10^3/UL (140-415); RED BLOOD COUNT 3.47 10^6/ul (4.20-5.40); RED CELL DISTRIBUTION WIDTH 15.9 % (11.5-14.5); WHITE BLOOD COUNT 10.6 10^3/ul (4.8-10.8)
[2017-07-15 05:07] LABS: OPIATES Negative (NEGATIVE)
[2017-07-15 05:46] LABS: ALBUMIN 2.9 g/dl (3.3-4.9); ALBUMIN/GLOBULIN RATIO 1.11; CALCIUM 8.6 mg/dl (8.4-10.2); CREATININE 0.73 mg/dl (0.44-1.00); POTASSIUM 4.8 mmol/L (3.5-5.1); TOTAL PROTEIN 5.5 g/dl (6.1-8.1)
[2017-07-15 05:55] LABS: BARBITURATES Negative (NEGATIVE); BENZODIAZEPINES Negative (NEGATIVE); CANNABINOIDS Negative (NEGATIVE); COCAINE Negative (NEGATIVE)
[2017-07-15] MEDS ORDERED: PANTOPRAZOLE 40 MG INJ IV SCH (06:00)
[2017-07-15 07:35] VITALS: BP 126/89; RESP 16
[2017-07-15] MEDS: VANCOMYCIN 750 MG in DEXTROSE 5% 150 ML IVPB SCH ×2 (08:08→21:53)
[2017-07-15] MEDS: predniSONE 20 MG TAB PO SCH (08:10)
[2017-07-15] MEDS: LISINOPRIL 20 MG TAB PO SCH (08:10)
[2017-07-15] MEDS: CITALOPRAM 20 MG TAB PO SCH (08:10)
[2017-07-15] MEDS: AMLODIPINE 10 MG TAB PO SCH (08:10)
[2017-07-15] MEDS: traMADol 50 MG TAB PO PRN (08:11)
[2017-07-15] MEDS: ATENOLOL 25 MG TAB PO SCH (08:11)
[2017-07-15 12:33] LABS: HEMATOCRIT 27.6 % (37.0-47.0); HEMOGLOBIN 8.6 g/dl (12.0-16.0)
[2017-07-15] MEDS ORDERED: LORAZEPAM 1 MG TAB PO ONE (13:30)
[2017-07-15 14:12] VITALS: BP 117/74; RESP 16
[2017-07-15] MEDS ORDERED: KETOROLAC 30 MG INJ IV PRN (14:30)
[2017-07-15] MEDS ORDERED: HYDROCODONE/HOMATROPINE 5ML CUP PO PRN (14:30)
--- NOTE | 2017-07-15 14:48 | PN ---
Date/Time of Note Date/Time of Note DATE: 07/15/17 TIME: 14:42 Assessment/Plan VTE Prophylaxis VTE Prophylaxis Intervention: LMWH Lines/Catheters IV Catheter Type (from [facility]): Peripheral IV Urinary Cath still in place: No Assessment/Plan Chief Complaint/Hosp Course Subjective: Cough anxiety. No fever or abdominal pain. No witnessed GI bleed. Objective: Vital signs stable Physical exam No pallor adenopathy Regular Mostly clear bilaterally no tachypnea BS+ nontender nondistended no RRG No edema Assessment and plan 1. Sirs. Probably related to bronchitis. No evidence of pneumonia. Stable continue supportive care. Watch for aspiration. 2. Chronic tobacco abuse. Counseling patch 3. Recent admission to [place] for ukn etiology. 4. Chr pain? 5. Chr hepatitis B/hepatitis C viremia. 6. Possible cirrhosis 7. Possible h/o esophageal varices/Hannah-Mix tear. Recommend beta-panchito and routine GI surveillance 8. H/o IVDA; methadone substance abuse 9. Epilepsy? 10. Htn 11. Nonadherence 12. Pleurisy. Will avoid nsaids due to potential h/o ugib. Narcotics will not be helpful. We will continue Ultram- Min risk of seizure exacerbation. Problems: Exam/Review of Systems Vital Signs Vitals Vital Signs Date Time Temp Pulse Resp B/P Pulse Ox O2 Delivery O2 Flow Rate FiO2 07/15/17 12:51 90 20 97 21 07/15/17 07:35 98.0 126/89 07/14/17 22:02 Room Air Intake and Output 07/14/17 07/14/17 07/15/17 14:59 22:59 06:59 Intake Total 250 ml 1700 ml Balance 250 ml 1700 ml Results Result Diagram: 07/15/17 1203 07/15/17 0429 Results 24 hrs Laboratory Tests Test 07/14/17 18:25 07/14/17 22:37 07/15/17 00:30 07/15/17 00:47 White Blood Count 15.3 #H Red Blood Count 3.46 #L Hemoglobin 8.0 #L Hematocrit 24.0 #L Mean Corpuscular Volume 69.4 L Mean Corpuscular Hemoglobin 23.1 L Mean Corpuscular Hemoglobin Concent 33.3 Red Cell Distribution Width 16.1 H Platelet Count 387 # Mean Platelet Volume 10.0 Neutrophils % 79.6 H Lymphocytes % 11.4 L Monocytes % 7.6 Eosinophils % 0.1 Basophils % 0.1 Nucleated Red Blood Cells % 0.0 Neutrophils # 12.2 H Lymphocytes # 1.8 Monocytes # 1.2 H Eosinophils # 0.0 Basophils # 0.0 Nucleated Red Blood Cells # 0.0 Sodium Level 140 Potassium Level 4.7 Chloride Level 103 Carbon Dioxide Level 28 Anion Gap 14 Blood Urea Nitrogen 45 H Creatinine 0.77 Glucose Level 113 Lactic Acid Level 1.9 2.4 *H 2.4 *H Calcium Level 9.5 Troponin I < 0.012 Urine Color YELLOW Urine Clarity CLEAR Urine pH 6.0 Urine Specific [place] 1.014 Urine Ketones NEGATIVE Urine Nitrite NEGATIVE Urine Bilirubin NEGATIVE Urine Urobilinogen NEGATIVE Urine Leukocyte Esterase NEGATIVE Urine Hemoglobin NEGATIVE Urine Glucose NEGATIVE Urine Total Protein NEGATIVE Urine Opiates Screen Negative Urine Barbiturates Negative Urine Amphetamines Screen Negative Urine Benzodiazepines Screen Negative Urine Cocaine Screen Negative Urine Cannabinoids Negative Absolute Reticulocyte Count 0.105 Percent Reticulocyte Count 3.0 H Test 07/15/17 00:48 07/15/17 04:29 07/15/17 05:58 07/15/17 06:00 Iron Level 31 L Total Iron Binding Capacity 332 Percent Iron Saturation 9 L White Blood Count 10.6 # Red Blood Count 3.47 L Hemoglobin 7.8 L Hematocrit 24.7 L Mean Corpuscular Volume 71.2 L Mean Corpuscular Hemoglobin 22.5 L Mean Corpuscular Hemoglobin Concent 31.6 L Red Cell Distribution Width 15.9 H Platelet Count 372 Mean Platelet Volume 10.1 Neutrophils % 90.0 H Lymphocytes % 6.1 L Monocytes % 2.1 Eosinophils % 0.2 Basophils % 0.1 Nucleated Red Blood Cells % 0.0 Neutrophils # 9.6 H Lymphocytes # 0.7 L Monocytes # 0.2 L Eosinophils # 0.0 Basophils # 0.0 Nucleated Red Blood Cells # 0.0 Sodium Level 143 Potassium Level 4.8 Chloride Level 107 Carbon Dioxide Level 29 Anion Gap 12 Blood Urea Nitrogen 34 #H Creatinine 0.73 Glucose Level 141 Lactic Acid Level 1.5 1.4 Calcium Level 8.6 Magnesium Level 1.8 Total Bilirubin 0.0 L Direct Bilirubin 0.00 Indirect Bilirubin 0.0 Aspartate Amino Transf (AST/SGOT) 20 Alanine Aminotransferase (ALT/SGPT) 48 Alkaline Phosphatase 50 Total Protein 5.5 L Albumin 2.9 L Globulin 2.60 Albumin/Globulin Ratio 1.11 Stool Occult Blood NEGATIVE Test 07/15/17 11:10 07/15/17 12:03 Lactic Acid Level 2.1 H Hemoglobin 8.6 L Hematocrit 27.6 L Medications Medications Current Medications Sodium Chloride (NS) 1,000 ml @ 50 mls/hr Q20H IV Last administered on 01:20; Admin Dose 80 MLS/HR; Start 07/14/17 at 23:24 Ondansetron HCl (Zofran Inj) 4 mg Q6H PRN IV NAUSEA AND/OR VOMITING; Start at 23:30 Docusate Sodium (Colace) 100 mg Q12H PRN PO CONSTIPATION; Start 07/14/17 at 23 :30 Bisacodyl (Dulcolax) 5 mg DAILY PRN PO CONSTIPATION; Start 07/14/17 at 23:30 Prednisone (Prednisone) 40 mg DAILY PO Last administered on 07/15/17 08:10; Admin Dose 40 MG; Start 07/15/17 at 09:00 Tramadol HCl (Ultram) 50 mg Q6H PRN PO PAIN Last administered on 07/15/17 08: 11; Admin Dose 50 MG; Start 07/14/17 at 23:30 Atenolol (Tenormin) 25 mg DAILY PO Last administered on 07/15/17 08:11; Admin Dose 25 MG; Start 07/15/17 at 09:00 Citalopram Hydrobromide (Celexa) 20 mg DAILY PO Last administered on 08:10; Admin Dose 20 MG; Start 07/15/17 at 09:00 Clonidine (Catapres) 0.2 mg DAILY PRN PO ELEVATED BLOOD PRESSURE; Start at 00:30 Gabapentin (Neurontin) 300 mg TID PO Last administered on 07/15/17 13:06; Admin Dose 300 MG; Start 07/15/17 at 00:38 Quetiapine Fumarate (Seroquel) 300 mg QHS PO Last administered on 07/15/17 01 :18; Admin Dose 300 MG; Start 07/15/17 at 01:00 Clonazepam (Klonopin) 2 mg BID PO Last administered on 07/15/17 08:10; Admin Dose 2 MG; Start 07/15/17 at 00:30 Amlodipine Besylate (Norvasc) 10 mg DAILY PO Last administered on 07/15/17 08 :10; Admin Dose 10 MG; Start 07/15/17 at 09:00 Lisinopril (Zestril) 20 mg DAILY PO Last administered on 07/15/17 08:10; Admin Dose 20 MG; Start 07/15/17 at 09:00 Miscellaneous Information Patients own medicat... BID@10,16 XX ; Start at 10:00 Vancomycin HCl/ Dextrose/Water (Vancocin/D5W) 150 ml @ 75 mls/hr Q12H IVPB Last administered on 07/15/17 08:08; Admin Dose 75 MLS/HR; Start 07/15/17 at 09:00 Miscellaneous Information (*Rx Drug Level Order Reminder*) 1 ONCE ONCE XX ; Start 07/16/17 at 08:00; Stop 07/16/17 at 08:01 Albuterol (Ventolin Hfa) 2 puff Q2 PRN INH WHEEZING AND SOB; Start 07/15/17 at 15:00 Ibuprofen (Motrin) 800 mg Q6H PRN PO MODERATE PAIN LEVEL 4-6; Start 07/18/17 at 14:30 Hydrocodone Bit/ Homatropine Methylb (Hycodan Liquid) 10 ml Q4 PRN PO COUGH; Start 07/15/17 at 14:30 Famotidine (Pepcid) 20 mg BID PO ; Start 07/15/17 at 21:00 Levofloxacin (Levaquin) 750 mg DAILY@06 PO ; Start 07/16/17 at 06:00 Nicotine (Nicoderm 14 Mg/ 24hr) 1 patch DAILY TRANSDERM ; Start 07/15/17 at 14: 30 Ketorolac Tromethamine (Toradol) 30 mg Q8 PRN IV PAIN; Start 07/15/17 at 14:30 ; Stop 07/18/17 at 14:29 GALEN MCKINLEY MD Jul 15, 2017 14:48
[2017-07-15] MEDS: NICOTINE (14 MG/24 HR) PATCH TRANSDERM SCH (15:35)
[2017-07-15 20:35] VITALS: BP 129/78; RESP 20
[2017-07-15 20:51] LABS: HEMATOCRIT 24.5 % (37.0-47.0); HEMOGLOBIN 7.9 g/dl (12.0-16.0)
[2017-07-15] MEDS: FAMOTIDINE 20 MG TAB PO SCH (21:54)
[2017-07-16 02:41] VITALS: BP 104/70; RESP 19
[2017-07-16] MEDS: SOD CHLORIDE 0.9% 1,000 ML IV SCH (05:25)
[2017-07-16] MEDS ORDERED: LORAZEPAM 1 MG TAB PO ONE (06:00)
[2017-07-16] MEDS ORDERED: LEVOFLOXACIN 750 MG TABLET PO SCH (06:00)
[2017-07-16 06:47] LABS: BASOPHILS % 0.1 % (0.0-2.0); EOSINOPHILS # 0.1 10^3/ul (0.0-0.5); EOSINOPHILS % 0.9 % (0.0-7.0); HEMATOCRIT 26.3 % (37.0-47.0); HEMOGLOBIN 8.2 g/dl (12.0-16.0); LYMPHOCYTES # 3.5 10^3/ul (0.8-2.9); MEAN CORPUSCULAR HEMOGLOBIN 22.4 pg (29.0-33.0); MEAN CORPUSCULAR HGB CONC 31.2 g/dl (32.0-37.0); MEAN CORPUSCULAR VOLUME 71.9 fl (82.0-101.0); MEAN PLATELET VOLUME 9.9 fl (7.4-10.4); MONOCYTE # 1.3 10^3/ul (0.3-0.9); MONOCYTES % 8.9 % (0.0-11.0); NEUTROPHILS % 63.9 % (39.0-77.0); PLATELET COUNT 417 10^3/UL (140-415); RED BLOOD COUNT 3.66 10^6/ul (4.20-5.40); RED CELL DISTRIBUTION WIDTH 16.7 % (11.5-14.5); WHITE BLOOD COUNT 14.1 10^3/ul (4.8-10.8)
[2017-07-16 07:21] LABS: INR 0.91; PROTIME 12.2 Sec (12.2-14.2)
[2017-07-16 07:29] LABS: ALBUMIN/GLOBULIN RATIO 1.15; CALCIUM 8.4 mg/dl (8.4-10.2); CREATININE 0.95 mg/dl (0.44-1.00); MAGNESIUM 1.7 mg/dl (1.7-2.5); PHOSPHORUS 3.3 mg/dl (2.5-4.9); POTASSIUM 3.8 mmol/L (3.5-5.1); TOTAL PROTEIN 5.6 g/dl (6.1-8.1)
[2017-07-16] MEDS: traMADol 50 MG TAB PO PRN (07:48)
[2017-07-16] MEDS: ALBUTEROL/IPRATROPIUM (NEB) 3 ML AMP HHN SCH ×2 (07:56)
[2017-07-16 07:59] VITALS: BP 116/81; PULSE 96; RESP 16
[2017-07-16] MEDS: GABAPENTIN 300 MG CAP PO SCH (08:15)
[2017-07-16] MEDS: AMLODIPINE 10 MG TAB PO SCH (08:16)
[2017-07-16] MEDS: CITALOPRAM 20 MG TAB PO SCH (08:16)
[2017-07-16] MEDS: clonAZEPAM 0.5 MG TAB PO SCH (08:17)
[2017-07-16] MEDS: predniSONE 20 MG TAB PO SCH (08:17)
[2017-07-16] MEDS: FAMOTIDINE 20 MG TAB PO SCH (08:17)
[2017-07-16] MEDS: ATENOLOL 25 MG TAB PO SCH (08:17)
[2017-07-16] MEDS: LISINOPRIL 20 MG TAB PO SCH (08:17)
[2017-07-16] MEDS: NICOTINE (14 MG/24 HR) PATCH TRANSDERM SCH (08:18)
--- NOTE | 2017-07-16 13:53 | DS ---
Date/Time of Note Date/Time of Note DATE: 07/16/17 TIME: 13:51 Discharge Summary Admission/Discharge Info Admit Date/Time Jul 14, 2017 at 19:32 Discharge Date/Time Jul 16, 2017 at 11:41 Discharge Diagnosis Sirs bronchitis? Nonadherence Patient Condition: Fair Consults None Procedures Blood work blood work, x-rays. Hx of Present Illness 57-year-old female admitted with Sirs. See H&P for details. Hospital Course Subjective: 07/15 cough anxiety. No fever or abdominal pain. No witnessed GI bleed. 07/16: Agitated left AMA Objective: Vital signs stable Physical exam Deferred left AMA Assessment and plan 1. Sirs. Probably related to bronchitis. No evidence of pneumonia. Stable continue supportive care. Watch for aspiration. -Unfortunately left AMA. Influenza testing negative. Cell count 14. 2. Chronic tobacco abuse. Counseling patch 3. Recent admission to [place] for ukn etiology. 4. Chr pain? 5. Chr hepatitis B/hepatitis C viremia. 6. Possible cirrhosis 7. Possible h/o esophageal varices/Hannah-Mix tear. Recommend beta-panchito and routine GI surveillance 8. H/o IVDA; methadone substance abuse 9. Epilepsy? 10. Htn 11. Nonadherence 12. Pleurisy. Will avoid nsaids due to potential h/o ugib. Narcotics will not be helpful. We will continue Ultram- Min risk of seizure exacerbation. Home Meds Active Scripts Quetiapine Fumarate* (Quetiapine Fumarate*) 100 Mg Tablet, 300 MG PO QHS for 30 Days, #30 TAB 2 Refills Prov:FANTASMA GARZON 05/23/17 Citalopram Hydrobromide* (Celexa*) 20 Mg Tablet, 20 MG PO DAILY for 30 Days, # 30 TAB 2 Refills Prov:FANTASMA GARZON 05/23/17 Lisinopril* (Lisinopril*) 20 Mg Tablet, 20 MG PO DAILY for 30 Days, #30 TAB 2 Refills Prov:FANTASMA GARZON 05/23/17 Reported Medications Amlodipine Besylate* (Norvasc*) 10 Mg Tablet, 10 MG PO DAILY, TAB 07/15/17 Clonazepam (Clonazepam) 2 Mg Tab.rapdis, 2 MG PO BID 07/14/17 Gabapentin* (Neurontin*) 300 Mg Capsule, 300 MG PO TID, #90 CAP 07/14/17 Clonidine Hcl* (Clonidine Hcl*) 0.2 Mg Tablet, 0.2 MG PO DAILY Y for ELEVATED BLOOD PRESSURE, TAB 07/14/17 Albuterol Sulfate* (Proair HFA*) 8.5 Gm Hfa.aer.ad, 2 PUFF INH Q6H Y for WHEEZING AND SOB, #1 INHALER 07/14/17 Atenolol* (Atenolol*) 25 Mg Tablet, 25 MG PO DAILY, #30 TAB 07/14/17 Discontinued Scripts Lorazepam* (Ativan*) 0.5 Mg Tablet, 0.5 MG PO Q8H Y for ANXIETY, #10 TAB Prov:EVANS AMAYA CERTIFIED ALCOHOL COUNSELOR 05/27/17 Gabapentin* (Gabapentin*) 300 Mg Capsule, 300 MG PO BID for 10 Days, CAP Prov:EVANS AMAYA CERTIFIED ALCOHOL COUNSELOR 05/27/17 Salmeterol Xinaf/Fluticasone* (Advair*) 250-50 Diskus Inhaler, 1 INH INHALATION BID, #1 INHALER Prov:FANTASMA GARZON 05/23/17 Gabapentin* (Gabapentin*) 300 Mg Capsule, 300 MG PO TID for 30 Days, #90 CAP 2 Refills Prov:FANTASMA GARZON 05/23/17 Amlodipine Besylate* (Amlodipine Besylate*) 10 Mg Tablet, 10 MG PO DAILY for 30 Days, #30 TAB 2 Refills Prov:FANTASMA GARZON 05/23/17 Primary Care Provider Chelle Hillman Time spent on discharge: < 30 minutes Pending Labs Laboratory Tests Test 07/15/17 20:08 07/16/17 05:46 07/16/17 08:45 Hemoglobin 7.9g/dl (12.0-16.0) 8.2g/dl (12.0-16.0) Hematocrit 24.5% (37.0-47.0) 26.3% (37.0-47.0) White Blood Count 14.110^3/ul (4.8-10.8) Red Blood Count 3.6610^6/ul (4.20-5.40) Mean Corpuscular Volume 71.9fl (82.0-101.0) Mean Corpuscular Hemoglobin 22.4pg (29.0-33.0) Mean Corpuscular Hemoglobin Concent 31.2g/dl (32.0-37.0) Red Cell Distribution Width 16.7% (11.5-14.5) Platelet Count 49680^3/UL (140-415) Mean Platelet Volume 9.9fl (7.4-10.4) Neutrophils % 63.9% (39.0-77.0) Lymphocytes % 25.0% (15.0-51.0) Monocytes % 8.9% (0.0-11.0) Eosinophils % 0.9% (0.0-7.0) Basophils % 0.1% (0.0-2.0) Nucleated Red Blood Cells % 0.0/100WBC (0.0-0.0) Neutrophils # 9.010^3/ul (1.6-7.5) Lymphocytes # 3.510^3/ul (0.8-2.9) Monocytes # 1.310^3/ul (0.3-0.9) Eosinophils # 0.110^3/ul (0.0-0.5) Basophils # 0.010^3/ul (0.0-0.1) Nucleated Red Blood Cells # 0.010^3/ul (0.0-0.0) Prothrombin Time 12.2Sec (12.2-14.2) Prothrombin Time Ratio 1.0 INR International Normalized Ratio 0.91 Sodium Level 140mmol/L (135-144) Potassium Level 3.8mmol/L (3.5-5.1) Chloride Level 105mmol/L (97-110) Carbon Dioxide Level 27mmol/L (21-31) Anion Gap 12 (8-16) Blood Urea Nitrogen 36mg/dl (7-20) Creatinine 0.95mg/dl (0.44-1.00) Glucose Level 112mg/dl (70-220) Calcium Level 8.4mg/dl (8.4-10.2) Phosphorus Level 3.3mg/dl (2.5-4.9) Magnesium Level 1.7mg/dl (1.7-2.5) Total Bilirubin 0.0mg/dl (0.2-1.3) Direct Bilirubin 0.00mg/dl (0.00-0.20) Indirect Bilirubin 0.0mg/dl (0-1.1) Aspartate Amino Transf (AST/SGOT) 19IU/L (15-46) Alanine Aminotransferase (ALT/SGPT) 43IU/L (13-69) Alkaline Phosphatase 50IU/L (42-121) Total Protein 5.6g/dl (6.1-8.1) Albumin 3.0g/dl (3.3-4.9) Globulin 2.60g/dl (1.3-3.2) Albumin/Globulin Ratio 1.15 Lipase 270U/L (23-300) Thyroid Stimulating Hormone (TSH) 2.460MIU/L (0.465-4.680) Vancomycin Level Trough 8.4ug/ml (10.0-20.0) Microbiology Date/Time Source Procedure Growth Status 07/15/17 22:22 Nasopharyngeal Influenza Types A,B Direct EIA - Final Complete GALEN MCKINLEY MD Jul 16, 2017 13:53
[2017-07-18] MEDS ORDERED: IBUPROFEN 800 MG TAB PO PRN (14:30)
== END 2017-07-16 11:41 | disposition left against medical advice (07) ==
LOC: E/R 17:48 → PP2 19:32
PROVIDERS: ADMIT Family Medicine; ATTEND Family Medicine
DX: R65.10 Systemic inflammatory response syndrome (SIRS) of non-infectious origin without acute organ dysfunction (principal); I10 Essential (primary) hypertension; J44.1 Chronic obstructive pulmonary disease with (acute) exacerbation; D50.9 Iron deficiency anemia, unspecified; Z86.73 Personal history of transient ischemic attack (TIA), and cerebral infarction without residual deficits; Z59.0 Homelessness; Z72.0 Tobacco use; F39 Unspecified mood [affective] disorder; Z91.19 Patient's noncompliance with other medical treatment and regimen; Z86.19 Personal history of other infectious and parasitic diseases; Z88.6 Allergy status to analgesic agent; Z88.8 Allergy status to other drugs, medicaments and biological substances
CPT/HCPCS: 71010; 80048; 80053; 80202; 80307; 81003; 82270; 82306; 83540; 83605; 83690; 83735; 84100; 84443; 84484; 85014; 85018; 85025; 85045; 85610; 87040; 87081; 87400; 93005; 94640; 94664; 96365; 96366; 96375; C9113; J0692; J1885; J1956; J2930; J3370; J7030; J7512; Z7500; Z7502; Z7610; G0378

== ENCOUNTER 2018-05-15 16:02 | Inpatient (IN) | END 2018-05-23 15:50 | disposition left against medical advice (07) | DRG 683 ==

== ENCOUNTER 2018-09-08 16:54 | Inpatient (IN) | payer OTHER ==
[~2018-09-08] VITALS: Ht 160 cm; Wt 61.6 kg
[~2018-09-08 16:54] MED LIST changes: -ADV25050 INHALATION; +ALBU8.5H8 INH; -AMLO-147 PO; +BUSP10TA2 NGT; +CLON0.2T5 PO; +CLON2TAB22 PO; +GABA100C14 PO; -GABA300C16 PO; -LISI20TA11 PO; -LORA-441 PO; +METH10TA2 PO; +NICO-546 TRANSDERM; +PANT40TA4 PO
[2018-09-08 21:30] VITALS: PULSE 62
[2018-09-08 21:35] VITALS: BP 132/79; PULSE 61; RESP 18
[2018-09-08] MEDS ORDERED: ALBUTEROL HFA 8 GM INHALER INH PRN (22:00)
[2018-09-08 22:12] VITALS: Ht 160 cm; Wt 61.6 kg
[2018-09-09] VITALS (11 sets, daily range): BP systolic 114–164; BP diastolic 71–100; PULSE 59–95; RESP 18–22
[2018-09-09] MEDS: ALBUTEROL/IPRATROPIUM (NEB) 3 ML AMP HHN SCH ×5 (03:42→21:58)
[2018-09-09] MEDS ORDERED: clonAZEPAM 0.5 MG TAB PO SCH ×2 (07:00→09:00)
[2018-09-09] MEDS: SILVER SULFADIAZINE 1% 25 GM CR TOP SCH (08:41)
[2018-09-09] MEDS: CEFTRIAXONE 1 GM/50 ML (PMX) 50 ML IVPB SCH (08:41)
[2018-09-09] MEDS: HYDROCHLOROTHIAZIDE 25 MG TAB PO SCH (08:45)
[2018-09-09] MEDS: BUSPIRONE 5 MG TAB PO SCH ×3 (08:47→20:40)
[2018-09-09] MEDS: FERROUS SULFATE (EC) 325 MG TAB PO SCH ×2 (08:48→20:40)
[2018-09-09] MEDS: LISINOPRIL 20 MG TAB PO SCH (08:48)
[2018-09-09] MEDS: METHADONE (1 MG/ML 5 ML PO UD SYG) PO SCH (08:54)
[2018-09-09] MEDS ORDERED: QUETIAPINE 100 MG TAB PO SCH ×2 (09:00→21:00)
[2018-09-09] MEDS ORDERED: BUPROPION 100 MG TAB PO SCH (09:00)
[2018-09-09] MEDS ORDERED: GABAPENTIN 300 MG CAP PO SCH (09:00)
[2018-09-09] MEDS ORDERED: CITALOPRAM 20 MG TAB PO SCH (09:00)
[2018-09-09] MEDS: ENOXAPARIN 40 MG/0.4 ML SYG SC SCH (09:13)
[2018-09-09] MEDS ORDERED: AZITHROMYCIN 500MG/NS (PMX) 250 ML IVPB ONE (10:00)
--- NOTE | 2018-09-09 12:10 | QN ---
Documentation Comment seen and examined NEGRA CULVER MD Sep 09, 2018 12:10
[2018-09-09] MEDS ORDERED: METHYLPREDNISOLONE 125 MG INJ IV ONE (12:30)
[2018-09-09] MEDS ORDERED: GABAPENTIN 100 MG CAP PO SCH (13:00)
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
[2018-09-09] MEDS: METHYLPREDNISOLONE 125 MG INJ IV SCH ×2 (17:15→20:48)
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
[2018-09-09] MEDS: SODIUM HYPOCHLORITE (1/40) 1 APPLIC BTL IRR SCH ×2 (18:00→18:49)
[2018-09-09] MEDS: GABAPENTIN 300 MG CAP PO SCH (20:40)
[2018-09-09] MEDS: hydrALAzine 20 MG INJ IV PRN (21:06)
[2018-09-10] VITALS (10 sets, daily range): BP systolic 109–173; BP diastolic 76–108; PULSE 69–100; RESP 16–19
[2018-09-10] MEDS: ALBUTEROL/IPRATROPIUM (NEB) 3 ML AMP HHN SCH ×6 (02:13→20:15)
[2018-09-10] MEDS: METHYLPREDNISOLONE 125 MG INJ IV SCH ×3 (05:02→21:11)
[2018-09-10] MEDS: GABAPENTIN 300 MG CAP PO SCH ×3 (08:27→21:08)
[2018-09-10] MEDS: HYDROCHLOROTHIAZIDE 25 MG TAB PO SCH (08:28)
[2018-09-10] MEDS: LISINOPRIL 20 MG TAB PO SCH (08:28)
[2018-09-10] MEDS: BUSPIRONE 5 MG TAB PO SCH ×3 (08:28→21:08)
[2018-09-10] MEDS: SILVER SULFADIAZINE 1% 25 GM CR TOP SCH (08:29)
[2018-09-10] MEDS: CEFTRIAXONE 1 GM/50 ML (PMX) 50 ML IVPB SCH (08:29)
[2018-09-10] MEDS: ENOXAPARIN 40 MG/0.4 ML SYG SC SCH (08:33)
[2018-09-10] MEDS: FERROUS SULFATE (EC) 325 MG TAB PO SCH ×2 (08:34→21:08)
[2018-09-10] MEDS: BUPROPION 100 MG TAB PO SCH (08:35)
[2018-09-10] MEDS: METHADONE (1 MG/ML 5 ML PO UD SYG) PO SCH (09:16)
[2018-09-10] MEDS ORDERED: MAGNESIUM SULFATE 3 GM in DEXTROSE 5% 100 ML IVPB ONE (11:00)
[2018-09-10] MEDS: SODIUM HYPOCHLORITE (1/40) 1 APPLIC BTL IRR SCH (11:40)
[2018-09-10] MEDS: clonAZEPAM 0.5 MG TAB PO SCH ×2 (11:40→21:08)
--- NOTE | 2018-09-10 13:01 | PN ---
Date/Time of Note Date/Time of Note DATE: 09/10/18 TIME: 13:00 Assessment/Plan VTE Prophylaxis Risk score (from Ns)>0 risk: 4 SCD applied (from [facility] [place]): No SCD contraindicated: low risk/ambulating Pharmacological prophylaxis: NA/contraindicated Pharm contraindication: low risk/ambulating Lines/Catheters IV [facility]from [facility] Saline Lock Urinary Cath still in place: No Assessment/Plan Hospital Course his is a 58-year-old female who presented with: 1. Altered mental status likely secondary to polypharmacy. Drug screen was positive for opiates and amphetamines. Patient had an ABG done which was fine. 2. Bilateral infiltrates, possible aspiration pneumonitis on Rocephin and azithromycin. vs CHF 3. Opiate addiction. 4. Benzodiazepine dependence. 5. Depression. 6. Hypertension. 7. Hepatitis B and hepatitis C. 8. Drug abuse. 9. Hypertension. 10 leg wound positive for staph aureus plan -Patient is much more awake today add Klonopin 0.5 twice daily -dc Seroquel hs, -Per psych continue with Neurontin/BuSpar/buprion -dc Celexa -The vancomycin for the left leg wound -cw with IV Solu-Medrol - Add low dose lasix - ECHO Result Diagram: 09/10/1831 09/10/18 0531 Results 24hrs Laboratory Tests Test 09/10/18 05:31 White Blood Count 5.6 # Red Blood Count 4.32 Hemoglobin 9.4 L Hematocrit 30.4 L Mean Corpuscular Volume 70.4 L Mean Corpuscular Hemoglobin 21.8 L Mean Corpuscular Hemoglobin Concent 30.9 L Red Cell Distribution Width 19.6 H Platelet Count 238 Mean Platelet Volume 10.8 H Immature Granulocytes % 0.900 H Neutrophils % 89.7 H Lymphocytes % 8.1 L Monocytes % 1.3 Eosinophils % 0.0 Basophils % 0.0 Nucleated Red Blood Cells % 0.0 Immature Granulocytes # 0.050 H Neutrophils # 5.0 Lymphocytes # 0.5 L Monocytes # 0.1 L Eosinophils # 0.0 Basophils # 0.0 Nucleated Red Blood Cells # 0.0 Sodium Level 139 Potassium Level 3.9 Chloride Level 103 Carbon Dioxide Level 29 Anion Gap 7 Blood Urea Nitrogen 27 H Creatinine 0.76 Est Glomerular Filtrat Rate mL/min > 60 Glucose Level 144 Calcium Level 9.0 Phosphorus Level 4.0 Magnesium Level 1.5 L Subjective 24 Hr Interval Summary Free Text/Dictation Pt is quite upset that why her klonipin was stopped Explained to her that she was very confused yesterday so could not give her more medications Checked with her psychiatrist occasional list Exam/Review of Systems Vital Signs Vitals Vital Signs Date Temp Pulse Resp B/P (MAP) Pulse Ox O2 O2 Flow FiO2 Time Delivery Rate 09/10/18 87 12:16 09/10/18 98.5 18 164/105 98 Room Air 11:14 (124) 09/10/18 3.0 07:30 09/10/18 27 05:44 Intake and Output 09/09/18 09/09/18 09/10/18 1515:00 23:00 07:00 IntakeIntake Total 1100 ml 1200 ml BalanceBalance 1100 ml 1200 ml Exam GENERAL: Patient answers some questions; however, gets confused in between, able to speak full sentences. HEENT: Pupils equal, round, reactive to light. NECK: Supple, no JVD. HEART: Regular rate and rhythm. LUNGS: Diffuse rhonchi bilaterally in all lung martines. ABDOMEN: Soft, nontender, nondistended, positive normoactive bowel sounds. EXTREMITIES: 1 to 2+ edema. Patient has multiple tattoos on the skin. Left leg wound to 1-3 cm Medications Medications Current Medications Albuterol (Ventolin Hfa) 2 puff Q4H RESP THERAPY PRN INH SHORTNESS OF BREATH; Start 09/08/18 at 22:00 Buspirone HCl (Buspar) 30 mg TID PO Last administered on 09/10/18at 08:28; Admin Dose 30 MG; Start 09/09/18 at 09:00 Clonidine (Catapres) 0.2 mg DAILY PO Last administered on 09/10/18at 08:28; Admin Dose 0.2 MG; Start 09/09/18 at 09:00 Ferrous Sulfate (Ferrous Sulfate (Ec)) 325 mg BID PO Last administered on 09/10/18at 08:34; Admin Dose 325 MG; Start 09/09/18 at 09:00 Hydrochlorothiazide (Hydrochlorothiazide) 25 mg DAILY PO Last administered on 09/10/18at 08:28; Admin Dose 25 MG; Start 09/09/18 at 09:00 Lisinopril (Zestril) 20 mg DAILY PO Last administered on 09/10/18 08:28; Admin Dose 20 MG; Start 09/09/18 at 09:00 Methadone HCl (Methadone Liq) 37 mg DAILY PO Last administered on 09/10/18 09:16; Admin Dose 37 MG; Start 09/09/18 at 09:00 Silver Sulfadiazine (Thermazene 1% 25 Gm) 1 applic DAILY TOP Last administered on 09/10/18 08:29; Admin Dose 1 APPLIC; Start 09/09/18 at 09:00 Enoxaparin Sodium (Lovenox) 40 mg DAILY SC Last administered on 09/10/18 08:33; Admin Dose 40 MG; Start 09/09/18 at 09:00 Ceftriaxone Sodium 50 ml @ 100 mls/hr Q24H IVPB Last administered on 09/10/18 08:29; Admin Dose 100 MLS/HR; Start 09/09/18 at 09:00 Albuterol/ Ipratropium (Duoneb) 3 ml Q4H RESP THERAPY HHN Last administered on 09/10/18 05:39; Admin Dose 3 ML; Start 09/09/18 at 13:00 Methylprednisolone Sodium Succinate (Solu-Medrol) 60 mg Q8 IV Last administered on 09/10/18 05:02; Admin Dose 60 MG; Start 09/09/18 at 17:00 Quetiapine Fumarate (Seroquel) 300 mg HS PO Last administered on 09/09/18at 20:41; Admin Dose 300 MG; Start 09/09/18 at 21:00 Sodium Hypochlorite (Dakin'S (Dilute )) 1 applic DAILY IRR Last adminis tered on 09/10/18at 11:40; Admin Dose 1 APPLIC; Start 09/09/18 at 18:00 Hydralazine HCl (Apresoline) 10 mg Q6H PRN IV SBP GREATER THAN 160 Last administered on 09/09/18 21:06; Admin Dose 10 MG; Start 09/09/18 at 17:00 Gabapentin (Neurontin) 600 mg TID PO Last administered on 09/10/18 08:27; Admin Dose 600 MG; Start 09/09/18 at 21:00 Bupropion HCl (Wellbutrin) 100 mg DAILY PO ; Start 09/10/18 at 09:00 Magnesium Sulfate 3 gm/Dextrose 106 ml @ 35.333 mls/ hr ONCE ONCE IVPB Last administered on 09/10/18at 11:40; Admin Dose 35.333 MLS/HR; Start 09/10/18 at 11:00; Stop 09/10/18 at 13:59 Amlodipine Besylate (Norvasc) 10 mg DAILY PO ; Start 09/11/18 at 09:00 Clonazepam (Klonopin) 0.5 mg BID PO Last administered on 09/10/18at 11:40; Admin Dose 0.5 MG; Start 09/10/18 at 11:00 NEGRA CULVER MD Sep 10, 2018 13:00
[2018-09-10] MEDS ORDERED: VANCOMYCIN IV PER PHARMACY XX SCH (13:30)
[2018-09-10] MEDS ORDERED: VANCOMYCIN 1 GM 250 ML IVPB SCH (14:00)
[2018-09-10] MEDS: FUROSEMIDE 20 MG INJ IV SCH (16:51)
[2018-09-10] MEDS: hydrALAzine 20 MG INJ IV PRN (16:59)
[2018-09-10] MEDS: MUPIROCIN 2% 22 GM OINT TOP SCH (21:08)
[2018-09-10] MEDS: VANCOMYCIN 750 MG (PMX) 250 ML IVPB SCH (23:02)
[2018-09-11] MEDS: ALBUTEROL/IPRATROPIUM (NEB) 3 ML AMP HHN SCH ×6 (01:00→20:33)
[2018-09-11 02:00] VITALS: BP 158/92; PULSE 88; RESP 17
[2018-09-11] MEDS: METHYLPREDNISOLONE 125 MG INJ IV SCH ×3 (05:55→22:52)
[2018-09-11 07:33] VITALS: BP 154/89; PULSE 76; RESP 17
[2018-09-11] MEDS: FERROUS SULFATE (EC) 325 MG TAB PO SCH ×2 (08:25→20:27)
[2018-09-11] MEDS: AMLODIPINE 10 MG TAB PO SCH (08:26)
[2018-09-11] MEDS: clonAZEPAM 0.5 MG TAB PO SCH ×2 (08:27→20:27)
[2018-09-11] MEDS: LISINOPRIL 20 MG TAB PO SCH (08:27)
[2018-09-11] MEDS: GABAPENTIN 300 MG CAP PO SCH ×3 (08:27→20:26)
[2018-09-11] MEDS: METHADONE (1 MG/ML 5 ML PO UD SYG) PO SCH (08:35)
[2018-09-11] MEDS: BUSPIRONE 5 MG TAB PO SCH ×4 (08:36→20:39)
[2018-09-11] MEDS: FUROSEMIDE 20 MG INJ IV SCH (08:38)
[2018-09-11] MEDS: ENOXAPARIN 40 MG/0.4 ML SYG SC SCH (08:49)
[2018-09-11] MEDS: SODIUM HYPOCHLORITE (1/40) 1 APPLIC BTL IRR SCH (08:50)
[2018-09-11] MEDS: MUPIROCIN 2% 22 GM OINT TOP SCH ×2 (08:50→20:28)
[2018-09-11] MEDS: BUPROPION 100 MG TAB PO SCH (09:47)
[2018-09-11] MEDS: HYDROCHLOROTHIAZIDE 25 MG TAB PO SCH (09:47)
--- NOTE | 2018-09-11 10:50 | CONS ---
Date/Time of Note Date/Time of Note DATE: 09/11/18 TIME: 10:45 Assessment/Plan Assessment/Plan Assessment/Plan 58-year-old female with history of IV drug abuse, past medical history of methadone use, polypharmacy substance abuse Recent history of use of heroin and methadone Pneumonia Receiving IV antibiotics, bronchodilators Altered Secondary to polysubstance pharmacy abuse and additional dose of Seroquel given to patient this morning prior to my arrival We will restart her methadone at 37 mg daily Restart all of her psychotropic medications hold a.m. dose of Seroquel Suggest inpatient drug rehab unit when patient is ready for discharge Will chemical dependency counselor patient on the use of recreational drugs Suggest outpatient rehabilitation unit Follow-up hepatitis B and hepatitis C as an outpatient Result Diagram: 09/11/18 0713 09/11/18 0713 Results 24hrs Laboratory Tests Test 09/11/18 07:13 White Blood Count 12.8 #H Red Blood Count 4.25 Hemoglobin 9.2 L Hematocrit 30.0 L Mean Corpuscular Volume 70.6 L Mean Corpuscular Hemoglobin 21.6 L Mean Corpuscular Hemoglobin Concent 30.7 L Red Cell Distribution Width 20.0 H Platelet Count 295 # Mean Platelet Volume 10.7 H Immature Granulocytes % 0.700 H Neutrophils % 92.0 H Lymphocytes % 5.3 L Monocytes % 1.9 Eosinophils % 0.0 Basophils % 0.1 Nucleated Red Blood Cells % 0.0 Immature Granulocytes # 0.090 H Neutrophils # 11.8 H Lymphocytes # 0.7 L Monocytes # 0.2 L Eosinophils # 0.0 Basophils # 0.0 Nucleated Red Blood Cells # 0.0 Sodium Level 138 Potassium Level 4.1 Chloride Level 100 Carbon Dioxide Level 29 Anion Gap 9 Blood Urea Nitrogen 39 #H Creatinine 0.75 Est Glomerular Filtrat Rate mL/min > 60 Glucose Level 183 Calcium Level 8.8 Phosphorus Level 4.3 Magnesium Level 1.8 Consultation Date/Type/Reason Admit Date/Time Sep 08, 2018 at 21:19 Hx of Present Illness Postdated note for hospital visit September 09, 2018 This is a 58-year-old female that I first saw on September 09 who was altered at that time and I could not get a history of present illness her past medical history. At that time story I did inform patient that she uses heroin as many times a day as she can obtain it but no less than 5 times a day. She was altered she had received a dose of Seroquel just prior to my visiting her and she was unable to give any other history. She was admitted to [facility] with polypharmacy substance abuse including heroin and amphetamines bilateral infiltrates. The comorbid medical problems include history of depression hypertension hepatitis B and hepatitis C. Today patient is much more awake alert cooperative pleasant. She has no complaints at this time of shortness of breath shakiness jitters, hallucinations or pruritus. Past Medical History Unknown patient is a poor historian Medical History: other (Depression anxiety IV drug abuse) Medications Current Medications Albuterol (Ventolin Hfa) 2 puff Q4H RESP THERAPY PRN INH SHORTNESS OF BREATH; Start 09/08/18 at 22:00 Buspirone HCl (Buspar) 30 mg TID PO Last administered on 09/10/18at 21:08; Admin Dose 30 MG; Start 09/09/18 at 09:00 Clonidine (Catapres) 0.2 mg DAILY PO Last administered on 09/11/18 09:47; Admin Dose 0.2 MG; Start 09/09/18 at 09:00 Ferrous Sulfate (Ferrous Sulfate (Ec)) 325 mg BID PO Last administered on 09/11/18 08:25; Admin Dose 325 MG; Start 09/09/18 at 09:00 Hydrochlorothiazide (Hydrochlorothiazide) 25 mg DAILY PO Last administered on 09/11/18 09:47; Admin Dose 25 MG; Start 09/09/18 at 09:00 Lisinopril (Zestril) 20 mg DAILY PO Last administered on 09/11/18 08:27; Admin Dose 20 MG; Start 09/09/18 at 09:00 Methadone HCl (Methadone Liq) 37 mg DAILY PO Last administered on 09/11/18 08:35; Admin Dose 37 MG; Start 09/09/18 at 09:00 Silver Sulfadiazine (Thermazene 1% 25 Gm) 1 applic DAILY TOP Last administered on 09/10/18at 08:29; Admin Dose 1 APPLIC; Start 09/09/18 at 09:00 Enoxaparin Sodium (Lovenox) 40 mg DAILY SC Last administered on 09/11/18 08:49; Admin Dose 40 MG; Start 09/09/18 at 09:00 Ceftriaxone Sodium 50 ml @ 100 mls/hr Q24H IVPB Last administered on 09/10/18 08:29; Admin Dose 100 MLS/HR; Start 09/09/18 at 09:00 Albuterol/ Ipratropium (Duoneb) 3 ml Q4H RESP THERAPY HHN Last administered on 09/11/18 09:05; Admin Dose 3 ML; Start 09/09/18 at 13:00 Methylprednisolone Sodium Succinate (Solu-Medrol) 60 mg Q8 IV Last administered on 09/11/18at 05:55; Admin Dose 60 MG; Start 09/09/18 at 17:00 Sodium Hypochlorite (Dakin'S (Dilute )) 1 applic DAILY IRR Last administered on 09/11/18 08:50; Admin Dose 1 APPLIC; Start 09/09/18 at 18:00 Hydralazine HCl (Apresoline) 10 mg Q6H PRN IV SBP GREATER THAN 160 Last administered on 09/10/18 16:59; Admin Dose 10 MG; Start 09/09/18 at 17:00 Gabapentin (Neurontin) 600 mg TID PO Last administered on 09/11/18 08:27; Admin Dose 600 MG; Start 09/09/18 at 21:00 Bupropion HCl (Wellbutrin) 100 mg DAILY PO Last administered on 09/11/18 09:47; Admin Dose 100 MG; Start 09/10/18 at 09:00 Amlodipine Besylate (Norvasc) 10 mg DAILY PO Last administered on 09/11/18 08:26; Admin Dose 10 MG; Start 09/11/18 at 09:00 Clonazepam (Klonopin) 0.5 mg BID PO Last administered on 09/11/18 08:27; Admin Dose 0.5 MG; Start 09/10/18 at 11:00 Vancomycin HCl (Vanco Iv Per Pharmacy) VANCOMYCIN PER PHARMACY PER PROTOCOL XX ; Start 09/10/18 at 13:30 Vancomycin/Sodium Chloride 250 ml @ 125 mls/hr Q12H IVPB Last administered on 09/10/18 23:02; Admin Dose 125 MLS/HR; Start 09/10/18 at 23:00 Mupirocin (Bactroban) 1 applic BID TOP Last administered on 1/17/19at 08:50; Admin Dose 1 APPLIC; Start 09/10/18 at 21:00 Furosemide (Lasix) 20 mg DAILY IV Last administered on 09/11/18at 08:38; Admin Dose 20 MG; Start 09/10/18 at 16:00 Quetiapine Fumarate (Seroquel) 300 mg HS PO ; Start 09/11/18 at 21:00 Allergies: Coded Allergies: acetaminophen (Verified Allergy, Unknown, RASH, 08/23/17) haloperidol (Verified Allergy, Unknown, 08/23/17) hydrocodone bit (Verified Allergy, Unknown, RASH, 08/23/17) ketorolac tromethamine (Verified Allergy, Unknown, 08/23/17) Social History Alcohol Use: none Smoking Status: Heavy tobacco smoker Drug Use: heroin, other (Crystal methamphetamine) Exam/Review of Systems Vital Signs Vitals Vital Signs Date Temp Pulse Resp B/P (MAP) Pulse Ox O2 O2 Flow FiO2 Time Delivery Rate 09/11/18 76 18 96 21 09:06 09/11/18 98.5 154/89 07:33 (110) 09/10/18 Room Air 18:45 09/10/18 3.0 07:30 Intake and Output 09/10/18 09/10/18 09/11/18 1515:00 23:00 07:00 IntakeIntake Total 406 ml 750 ml BalanceBalance 406 ml 750 ml Exam Constitutional: other (Altered) Head: normocephalic, atraumatic; No lacerations, No hematomas, No other Eyes: nl conjunctiva, EOMI, nl lids, nl sclera, PERRL; No icteric, No fundi, disc, No other ENMT: No nl external ears & nose, No nl lips & teeth, No nl nasal mucosa & septum, No mucosa pink and moist, No intubated, No tympanic membranes, No other Neck: No supple, No non-tender, No jvd, No bruits, No masses, No thyromegaly, No nuchal rigidity, No other Respiratory: No clear to auscultation, No normal air movement, No congested cough, No crackles/rales, No diminished breath sounds, No intercostal retracti on, No labored breathing, No respirations, No tactile fremitus, No wheezing, No other Cardiovascular: No regular rate and rhythm, No nl pulses, No bruits, No diastolic murmur, No edema, No gallop, No irregular rhythm, No jugular venous distention (JVD), No murmurs/extra sounds, No rub, No systolic murmur, No S3, No S4, No other Gastrointestinal: No soft, No nl liver, spleen, No non-tender, No ascites, No bowel sounds, No distended, No firm, No hepatomegaly, No mass, No rebound or guarding, No splenomegaly, No surgical scars, No tender, No other Neurological: SPOOL FIXER II-XII intact, nl mental status, nl speech, nl strength; No confused, No DTR's symmetric, No focal weakness, No lethargic, No numbness, No reflexes, No unresponsive, No other Medications Medications Current Medications Albuterol (Ventolin Hfa) 2 puff Q4H RESP THERAPY PRN INH SHORTNESS OF BREATH; Start 09/08/18 at 22:00 Buspirone HCl (Buspar) 30 mg TID PO Last administered on 09/10/18at 21:08; Admin Dose 30 MG; Start 09/09/18 at 09:00 Clonidine (Catapres) 0.2 mg DAILY PO Last administered on 09/11/18 09:47; Admin Dose 0.2 MG; Start 09/09/18 at 09:00 Ferrous Sulfate (Ferrous Sulfate (Ec)) 325 mg BID PO Last administered on 09/11/18 08:25; Admin Dose 325 MG; Start 09/09/18 at 09:00 Hydrochlorothiazide (Hydrochlorothiazide) 25 mg DAILY PO Last administered on 09/11/18 09:47; Admin Dose 25 MG; Start 09/09/18 at 09:00 Lisinopril (Zestril) 20 mg DAILY PO Last administered on 09/11/18 08:27; Admin Dose 20 MG; Start 09/09/18 at 09:00 Methadone HCl (Methadone Liq) 37 mg DAILY PO Last administered on 09/11/18 08:35; Admin Dose 37 MG; Start 09/09/18 at 09:00 Silver Sulfadiazine (Thermazene 1% 25 Gm) 1 applic DAILY TOP Last administered on 09/10/18 08:29; Admin Dose 1 APPLIC; Start 09/09/18 at 09:00 Enoxaparin Sodium (Lovenox) 40 mg DAILY SC Last administered on 09/11/18 08:49; Admin Dose 40 MG; Start 09/09/18 at 09:00 Ceftriaxone Sodium 50 ml @ 100 mls/hr Q24H IVPB Last administered on 09/10/18 08:29; Admin Dose 100 MLS/HR; Start 09/09/18 at 09:00 Albuterol/ Ipratropium (Duoneb) 3 ml Q4H RESP THERAPY HHN Last administered on 09/11/18 09:05; Admin Dose 3 ML; Start 09/09/18 at 13:00 Methylprednisolone Sodium Succinate (Solu-Medrol) 60 mg Q8 IV Last administered on 09/11/18 05:55; Admin Dose 60 MG; Start 09/09/18 at 17:00 Sodium Hypochlorite (Dakin'S (Dilute )) 1 applic DAILY IRR Last administered on 09/11/18 08:50; Admin Dose 1 APPLIC; Start 09/09/18 at 18:00 Hydralazine HCl (Apresoline) 10 mg Q6H PRN IV SBP GREATER THAN 160 Last administered on 09/10/18 16:59; Admin Dose 10 MG; Start 09/09/18 at 17:00 Gabapentin (Neurontin) 600 mg TID PO Last administered on 09/11/18 08:27; Admin Dose 600 MG; Start 09/09/18 at 21:00 Bupropion HCl (Wellbutrin) 100 mg DAILY PO Last administered on 09/11/18 09:47; Admin Dose 100 MG; Start 09/10/18 at 09:00 Amlodipine Besylate (Norvasc) 10 mg DAILY PO Last administered on 09/11/18 08:26; Admin Dose 10 MG; Start 09/11/18 at 09:00 Clonazepam (Klonopin) 0.5 mg BID PO Last administered on 09/11/18 08:27; Admin Dose 0.5 MG; Start 09/10/18 at 11:00 Vancomycin HCl (Vanco Iv Per Pharmacy) VANCOMYCIN PER PHARMACY PER PROTOCOL XX ; Start 09/10/18 at 13:30 Vancomycin/Sodium Chloride 250 ml @ 125 mls/hr Q12H IVPB Last administered on 09/10/18at 23:02; Admin Dose 125 MLS/HR; Start 09/10/18 at 23:00 Mupirocin (Bactroban) 1 applic BID TOP Last administered on 09/11/18at 08:50; Admin Dose 1 APPLIC; Start 09/10/18 at 21:00 Furosemide (Lasix) 20 mg DAILY IV Last administered on 09/11/18at 08:38; Admin Dose 20 MG; Start 09/10/18 at 16:00 Quetiapine Fumarate (Seroquel) 300 mg HS PO ; Start 09/11/18 at 21:00 ARIEL PIÑA Sep 11, 2018 10:50
[2018-09-11] MEDS: VANCOMYCIN 750 MG (PMX) 250 ML IVPB SCH ×2 (11:27→22:52)
[2018-09-11] MEDS: CEFTRIAXONE 1 GM/50 ML (PMX) 50 ML IVPB SCH (14:01)
[2018-09-11] MEDS: SILVER SULFADIAZINE 1% 25 GM CR TOP SCH (14:03)
[2018-09-11 14:40] VITALS: BP 130/85; PULSE 86; RESP 18
--- NOTE | 2018-09-11 16:19 | PN ---
Date/Time of Note Date/Time of Note DATE: 09/11/18 TIME: 16:16 Assessment/Plan VTE Prophylaxis Risk score (from [facility])>0 risk: 3 SCD applied (from [facility]): No SCD contraindicated: low risk/ambulating Pharmacological prophylaxis: NA/contraindicated Pharm contraindication: low risk/ambulating Lines/Catheters IV Catheter Type (from [facility]): Saline Lock Urinary Cath still in place: No Assessment/Plan Hospital Course his is a 58-year-old female who presented with: 1. Altered mental status likely secondary to polypharmacy. Drug screen was positive for opiates and amphetamines. Patient had an ABG done which was fine. 2. Bilateral infiltrates, possible aspiration pneumonitis on Rocephin and azithromycin. vs CHF 3 SOB due to copd exacerbation 3. Opiate addiction. 4. Benzodiazepine dependence. 5. Depression. 6. Hypertension. 7. Hepatitis B and hepatitis C. 8. Drug abuse. 9. Hypertension. 10 leg wound positive for staph aureus plan -pscy meds per pscy and Dr Joseph - neblarry stat - iv solumedrol - iv rocephin - iv vanco for wound - iv lasix - wound care - gi/ dvt PROPHYLAXSIS Result Diagram: 09/11/18 0713 09/11/18 0713 Results 24hrs Laboratory Tests Test 09/11/18 07:13 White Blood Count 12.8 #H Red Blood Count 4.25 Hemoglobin 9.2 L Hematocrit 30.0 L Mean Corpuscular Volume 70.6 L Mean Corpuscular Hemoglobin 21.6 L Mean Corpuscular Hemoglobin Concent 30.7 L Red Cell Distribution Width 20.0 H Platelet Count 295 # Mean Platelet Volume 10.7 H Immature Granulocytes % 0.700 H Neutrophils % 92.0 H Lymphocytes % 5.3 L Monocytes % 1.9 Eosinophils % 0.0 Basophils % 0.1 Nucleated Red Blood Cells % 0.0 Immature Granulocytes # 0.090 H Neutrophils # 11.8 H Lymphocytes # 0.7 L Monocytes # 0.2 L Eosinophils # 0.0 Basophils # 0.0 Nucleated Red Blood Cells # 0.0 Sodium Level 138 Potassium Level 4.1 Chloride Level 100 Carbon Dioxide Level 29 Anion Gap 9 Blood Urea Nitrogen 39 #H Creatinine 0.75 Est Glomerular Filtrat Rate mL/min > 60 Glucose Level 183 Calcium Level 8.8 Phosphorus Level 4.3 Magnesium Level 1.8 Subjective 24 Hr Interval Summary Free Text/Dictation still sob coughing a lot Exam/Review of Systems Vital Signs Vitals Vital Signs Date Temp Pulse Resp B/P (MAP) Pulse Ox O2 O2 Flow FiO2 Time Delivery Rate 09/11/18 99.2 86 18 130/85 94 14:40 (100) 09/11/18 21 09:06 09/10/18 Room Air 18:45 09/10/18 3.0 07:30 Intake and Output 09/10/18 09/10/18 09/11/18 1515:00 23:00 07:00 IntakeIntake Total 406 ml 750 ml BalanceBalance 406 ml 750 ml Exam GENERAL: awake,alert and oriented HEENT: Pupils equal, round, reactive to light. NECK: Supple, no JVD. HEART: Regular rate and rhythm. LUNGS: Diffuse rhonchi bilaterally in all lung martines. ABDOMEN: Soft, nontender, nondistended, positive normoactive bowel sounds. EXTREMITIES: 1 to 2+ edema. Patient has multiple tattoos on the skin. Left leg wound to 1-3 cm Medications Medications Current Medications Albuterol (Ventolin Hfa) 2 puff Q4H RESP THERAPY PRN INH SHORTNESS OF BREATH; Start 09/08/18 at 22:00 Buspirone HCl (Buspar) 30 mg TID PO Last administered on 09/10/18at 21:08; Admin Dose 30 MG; Start 09/09/18 at 09:00 Clonidine (Catapres) 0.2 mg DAILY PO Last administered on 09/11/18 09:47; Admin Dose 0.2 MG; Start 09/09/18 at 09:00 Ferrous Sulfate (Ferrous Sulfate (Ec)) 325 mg BID PO Last administered on 09/11/18 08:25; Admin Dose 325 MG; Start 09/09/18 at 09:00 Hydrochlorothiazide (Hydrochlorothiazide) 25 mg DAILY PO Last administered on 09/11/18 09:47; Admin Dose 25 MG; Start 09/09/18 at 09:00 Lisinopril (Zestril) 20 mg DAILY PO Last administered on 09/11/18 08:27; Admin Dose 20 MG; Start 09/09/18 at 09:00 Methadone HCl (Methadone Liq) 37 mg DAILY PO Last administered on 09/11/18 08:35; Admin Dose 37 MG; Start 09/09/18 at 09:00 Silver Sulfadiazine (Thermazene 1% 25 Gm) 1 applic DAILY TOP Last administered on 09/11/18 14:03; Admin Dose 1 APPLIC; Start 09/09/18 at 09:00 Enoxaparin Sodium (Lovenox) 40 mg DAILY SC Last administered on 09/11/18 08:49; Admin Dose 40 MG; Start 09/09/18 at 09:00 Ceftriaxone Sodium 50 ml @ 100 mls/hr Q24H IVPB Last administered on 09/11/18 14:01; Admin Dose 100 MLS/HR; Start 09/09/18 at 09:00 Albuterol/ Ipratropium (Duoneb) 3 ml Q4H RESP THERAPY HHN Last administered on 09/11/18 12:03; Admin Dose 3 ML; Start 09/09/18 at 13:00 Methylprednisolone Sodium Succinate (Solu-Medrol) 60 mg Q8 IV Last administered on 09/11/18 13:42; Admin Dose 60 MG; Start 09/09/18 at 17:00 Sodium Hypochlorite (Dakin'S (Dilute )) 1 applic DAILY IRR Last administered on 09/11/18 08:50; Admin Dose 1 APPLIC; Start 09/09/18 at 18:00 Hydralazine HCl (Apresoline) 10 mg Q6H PRN IV SBP GREATER THAN 160 Last administered on 09/10/18 16:59; Admin Dose 10 MG; Start 09/09/18 at 17:00 Gabapentin (Neurontin) 600 mg TID PO Last administered on 09/11/18 13:41; Admin Dose 600 MG; Start 09/09/18 at 21:00 Bupropion HCl (Wellbutrin) 100 mg DAILY PO Last administered on 09/11/18 09:47 ; Admin Dose 100 MG; Start 09/10/18 at 09:00 Amlodipine Besylate (Norvasc) 10 mg DAILY PO Last administered on 09/11/18 08:26; Admin Dose 10 MG; Start 09/11/18 at 09:00 Clonazepam (Klonopin) 0.5 mg BID PO Last administered on 09/11/18 08:27; Admin Dose 0.5 MG; Start 09/10/18 at 11:00 Vancomycin HCl (Vanco Iv Per Pharmacy) VANCOMYCIN PER PHARMACY PER PROTOCOL XX ; Start 09/10/18 at 13:30 Vancomycin/Sodium Chloride 250 ml @ 125 mls/hr Q12H IVPB Last administered on 09/11/18at 11:27; Admin Dose 125 MLS/HR; Start 09/10/18 at 23:00 Mupirocin (Bactroban) 1 applic BID TOP Last administered on 09/11/18at 08:50; Admin Dose 1 APPLIC; Start 09/10/18 at 21:00 Furosemide (Lasix) 20 mg DAILY IV Last administered on 09/11/18at 08:38; Admin Dose 20 MG; Start 09/10/18 at 16:00 Quetiapine Fumarate (Seroquel) 300 mg HS PO ; Start 09/11/18 at 21:00 Guaifenesin/ Codeine Phosphate (Robitussin Ac Liquid Cup) 10 ml Q4H PRN PO COUGH; Start 09/11/18 at 16:30; Status UNNEGRA HARRIS MD Sep 11, 2018 16:18
[2018-09-11] MEDS ORDERED: FUROSEMIDE 40 MG INJ IV ONE (16:30)
[2018-09-11] MEDS: GUAIFENESIN/CODEINE 5ML CUP PO PRN (18:06)
[2018-09-11 20:00] VITALS: BP 129/82; PULSE 98; RESP 18
[2018-09-11] MEDS ORDERED: IBUPROFEN 400 MG TAB PO PRN (20:00)
[2018-09-11] MEDS ORDERED: QUETIAPINE 100 MG TAB PO SCH (21:00)
[2018-09-12] MEDS: ALBUTEROL/IPRATROPIUM (NEB) 3 ML AMP HHN SCH ×4 (00:25→12:40)
[2018-09-12] MEDS: GUAIFENESIN/CODEINE 5ML CUP PO PRN ×2 (00:47→12:21)
[2018-09-12 02:00] VITALS: BP 136/84; PULSE 79; RESP 18
[2018-09-12] MEDS: METHYLPREDNISOLONE 125 MG INJ IV SCH ×2 (06:18→13:14)
[2018-09-12 08:00] VITALS: BP 132/86; PULSE 85; RESP 18
[2018-09-12] MEDS: BUPROPION 100 MG TAB PO SCH (09:00)
[2018-09-12] MEDS: AMLODIPINE 10 MG TAB PO SCH (09:01)
[2018-09-12] MEDS: LISINOPRIL 20 MG TAB PO SCH (09:02)
[2018-09-12] MEDS: BUSPIRONE 5 MG TAB PO SCH ×2 (09:02→12:21)
[2018-09-12] MEDS: clonAZEPAM 0.5 MG TAB PO SCH (09:02)
[2018-09-12] MEDS: GABAPENTIN 300 MG CAP PO SCH ×2 (09:02→12:21)
[2018-09-12] MEDS: FERROUS SULFATE (EC) 325 MG TAB PO SCH (09:02)
[2018-09-12] MEDS: HYDROCHLOROTHIAZIDE 25 MG TAB PO SCH (09:08)
[2018-09-12] MEDS: METHADONE (1 MG/ML 5 ML PO UD SYG) PO SCH (09:08)
[2018-09-12] MEDS: SODIUM HYPOCHLORITE (1/40) 1 APPLIC BTL IRR SCH (09:09)
[2018-09-12] MEDS: CEFTRIAXONE 1 GM/50 ML (PMX) 50 ML IVPB SCH (09:09)
[2018-09-12] MEDS: FUROSEMIDE 20 MG INJ IV SCH (09:09)
[2018-09-12] MEDS: ENOXAPARIN 40 MG/0.4 ML SYG SC SCH (09:12)
[2018-09-12] MEDS: MUPIROCIN 2% 22 GM OINT TOP SCH (09:13)
[2018-09-12] MEDS: SILVER SULFADIAZINE 1% 25 GM CR TOP SCH (09:13)
[2018-09-12 10:50] VITALS: BP 159/95
[2018-09-12] MEDS: VANCOMYCIN 750 MG (PMX) 250 ML IVPB SCH (11:11)
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
[2018-09-12 14:00] VITALS: BP 123/84; PULSE 99; RESP 18
--- NOTE | 2018-09-12 15:09 | PDOCDIS ---
Discharge Instructions CONDITION [id number] Patient Condition: [id number] Stable HOME CARE INSTRUCTIONS: [id number] Special Diet: [id number] Regular ACTIVITY: [id number] Activity Restrictions: [id number] Slowly Increase Activity Rest between Activity Avoid heavy lifting [id number] Bathing Restrictions: [id number] Shower FOLLOW UP/APPOINTMENTS Follow-up Plan find a PCP , f/up as soon as possible SCHOOL/WORK RELEASE May return to School/Work with: No Restrictions MALVIN AMIN Sep 12, 2018 15:09
[2018-09-12] MEDS ORDERED: LISI-471 PO (15:23)
[2018-09-12] MEDS ORDERED: CITA20TA11 PO (15:23)
[2018-09-12] MEDS ORDERED: PANT40TA4 PO (15:23)
[2018-09-12] MEDS ORDERED: QUET100T32 PO (15:23)
[2018-09-12] MEDS ORDERED: MUPI22OI2 TOP (15:23)
[2018-09-12] MEDS ORDERED: BUPR100T14 PO (15:23)
[2018-09-12] MEDS ORDERED: MED4DP PO (15:23)
[2018-09-12] MEDS ORDERED: HYDR25TA6 PO (15:23)
[2018-09-12] MEDS ORDERED: ALBU18HF INH (15:23)
[2018-09-12] MEDS ORDERED: CLON0.2T12 PO (15:23)
[2018-09-12] MEDS ORDERED: AMLO-147 PO (15:23)
[2018-09-12] MEDS ORDERED: NICO-546 TRANSDERM (15:23)
[2018-09-12] MEDS ORDERED: FER325 PO (15:23)
[2018-09-12] MEDS ORDERED: BUSP10TA2 NGT (15:23)
[2018-09-12] MEDS ORDERED: DOXY100T20 PO (15:23)
[2018-09-12] MEDS ORDERED: GABA300C16 PO (15:23)
[2018-09-12] MEDS ORDERED: ALBU90AE INHALATION (15:24)
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
[2018-09-12] MEDS ORDERED: VANCOMYCIN 1 GM 250 ML IVPB SCH (23:00)
== END 2018-09-12 16:35 | disposition home or self-care (01) | DRG 917 ==
LOC: TEL 21:19 → 5EC 09-10 18:29
PROVIDERS: ADMIT Internal Medicine Nephrology; ATTEND Internal Medicine Nephrology
DX: T40.601A Poisoning by unspecified narcotics, accidental (unintentional), initial encounter (principal); G92 Toxic encephalopathy; J69.0 Pneumonitis due to inhalation of food and vomit; F13.20 Sedative, hypnotic or anxiolytic dependence, uncomplicated; L02.416 Cutaneous abscess of left lower limb; B18.1 Chronic viral hepatitis B without delta-agent; F39 Unspecified mood [affective] disorder; T43.621A Poisoning by amphetamines, accidental (unintentional), initial encounter; F11.229 Opioid dependence with intoxication, unspecified; F15.229 Other stimulant dependence with intoxication, unspecified; F32.9 Major depressive disorder, single episode, unspecified; I10 Essential (primary) hypertension; B18.2 Chronic viral hepatitis C; J44.9 Chronic obstructive pulmonary disease, unspecified; G40.909 Epilepsy, unspecified, not intractable, without status epilepticus; F17.200 Nicotine dependence, unspecified, uncomplicated; Z96.661 Presence of right artificial ankle joint; D64.9 Anemia, unspecified; M19.049 Primary osteoarthritis, unspecified hand; B95.62 Methicillin resistant Staphylococcus aureus infection as the cause of diseases classified elsewhere; Z59.0 Homelessness; Y92.9 Unspecified place or not applicable
CPT/HCPCS: 71045; 80048; 80053; 80202; 83735; 84100; 85025; 87070; 87081; 94640; 94664; J0360; J0456; J0696; J1650; J1940; J2930; J3370; J3475

== ENCOUNTER 2018-12-05 23:27 | Emergency (ER) | payer OTHER ==
[~2018-12-05] VITALS: Wt 50.0 kg
[~2018-12-05 23:27] MED LIST changes: +ALBU18HF INH; -ALBU8.5H8 INH; +ALBU90AE INHALATION; +AMLO-147 PO; +BUPR100T14 PO; +CLON0.2T12 PO; -CLON0.2T5 PO; -CLON2TAB22 PO; +DOXY100T20 PO; +FER325 PO; -GABA100C14 PO; +GABA300C16 PO; +HYDR25TA6 PO; +LISI-471 PO; +MED4DP PO; +MUPI22OI2 TOP
--- NOTE | 2018-12-05 23:36 | ERD ---
ER Documentation Chief Complaint Chief Complaint rt rib pain HPI The patient is a 58-year-old female, presenting to the ER because of right wrist pain after she fell about 9 days ago, denies dyspnea, chest pain, abdominal pain, vomiting. She is requesting medication refill. She run out of her medication chronic pain, Norvasc, lisinopril for the last 9 days. She smokes, denies drinking or using illicit drug Past medical history: Hypertension, hepatitis C, hepatitis B, COPD, scoliosis, anxiety, bipolar, schizo affective disorder ROS All systems reviewed and are negative except as per history of present illness. Medications Home Meds Active Scripts Baclofen* (Baclofen*) 10 Mg Tablet, 10 MG PO TID, #15 TAB Prov:DARRYL MCCANN MD 12/06/18 Lisinopril* (Lisinopril*) 20 Mg Tablet, 20 MG PO DAILY for 14 Days, #30 TAB Prov:DARRYL MCCANN MD 12/06/18 Amlodipine Besylate* (Norvasc*) 10 Mg Tablet, 10 MG PO DAILY for 14 Days, TAB Prov:DARRYL MCCANN MD 12/06/18 Albuterol Sulfate (Proair Respiclick) 90 Mcg Aer.pow.ba, 1 PUFF INHALATION Q4 PRN for SHORTNESS OF BREATH, #1 BOTTLE Prov:MALVIN AMIN 09/12/18 Doxycycline Hyclate* (Doxycycline Hyclate*) 100 Mg Tablet.dr, 100 MG PO BID for 10 Days, TAB Prov:MALVIN AMIN 09/12/18 Hydrochlorothiazide* (Hydrochlorothiazide*) 25 Mg Tab, 25 MG PO DAILY for 30 Days, TAB Prov:MALVIN AMIN 09/12/18 Mupirocin* (Bactroban*) 2% -22 Gram Oint...g., 1 APPLIC TOP BID for 10 Days Prov:MALVIN AMIN 09/12/18 Methylprednisolone* (Medrol* DOSE PACK) 4 Mg/Dose-Pack Tab.ds.pk, 4 MG PO . DIRECTED, #1 PACKET Prov:MALVIN AMIN 09/12/18 Gabapentin* (Gabapentin*) 300 Mg Capsule, 600 MG PO TID for 30 Days, CAP Prov:MALVIN AMIN 09/12/18 Bupropion Hcl* (Bupropion Hcl*) 100 Mg Tablet, 100 MG PO DAILY for 30 Days, TAB Prov:MALVIN AMIN 09/12/18 Lisinopril* (Lisinopril*) 20 Mg Tablet, 20 MG PO DAILY for 30 Days, TAB Prov:MALVIN AMIN 09/12/18 Clonidine Hcl* (Catapres*) 0.2 Mg Tablet, 0.2 MG PO DAILY for 30 Days, TAB Prov:MALVIN AMIN 09/12/18 Amlodipine Besylate* (Amlodipine Besylate*) 10 Mg Tablet, 10 MG PO DAILY for 30 Days, TAB Prov:MALVIN AMIN 09/12/18 Ferrous Sulfate* (Ferrous Sulfate*) 325 Mg Tabec, 325 MG PO BID for 30 Days, TAB Prov:MALVIN AMIN 09/12/18 Albuterol Sulfate* (Ventolin HFA*) 18 Gm Hfa.aer.ad, 2 PUFF INH Q4H RESP THERAPY PRN for SHORTNESS OF BREATH for 30 Days Prov:MALVIN AMIN 09/12/18 Pantoprazole* (Pantoprazole*) 40 Mg Tablet.dr, 40 MG PO DAILY@06 for 30 Days Prov:MALVIN AMIN 09/12/18 Buspirone Hcl* (Buspirone Hcl*) 10 Mg Tab, 10 MG NGT TID for 10 Days, TAB Prov:MALVIN AMIN 09/12/18 Citalopram Hydrobromide* (Celexa*) 20 Mg Tablet, 40 MG PO DAILY for 28 Days, TAB Prov:MALVIN AMIN 09/12/18 Nicotine* (Nicotine* Patch) 21 mg/day Patch, 1 PATCH TRANSDERM DAILY for 30 Days Prov:MALVIN AMIN 09/12/18 Quetiapine Fumarate* (Quetiapine Fumarate*) 100 Mg Tablet, 300 MG PO QHS for 30 Days, #30 TAB 2 Refills Prov:MALVIN AMIN 09/12/18 Methadone Hcl* (Methadone*) 10 Mg Tab, 30 MG PO DAILY for 1 Day, TAB Prov:LAUREN SHAH MD 05/20/18 Allergies Allergies: Coded Allergies: acetaminophen (Verified Allergy, Unknown, RASH, 08/23/17) haloperidol (Verified Allergy, Unknown, 08/23/17) hydrocodone bit (Verified Allergy, Unknown, RASH, 08/23/17) ketorolac tromethamine (Verified Allergy, Unknown, 08/23/17) PMhx/Soc History of Surgery: Yes (Rt ankle ORIF) Anesthesia Reaction: No Hx Neurological Disorder: Yes (lethargic at this time) Hx Respiratory Disorders: Yes (PNA at this time) Hx Cardiac Disorders: Yes (HTN) Hx Psychiatric Problems: Yes Hx Miscellaneous Medical Probl: Yes (HTN, mood disorder , IV use and abuse, hepatitis C and B, COPD, PNA, anemia) Hx Alcohol Use: Yes Hx Substance Use: Yes Hx Tobacco Use: No Physical Exam Vitals Vital Signs Date Temp Pulse Resp B/P (MAP) Pulse Ox O2 O2 Flow FiO2 Time Delivery Rate 12/06/18 98.5 85 19 149/85 100 Room Air 04:00 (106) 12/06/18 98.5 88 19 170/99 100 Room Air 00:08 (122) 12/05/18 98.5 91 19 171/131 100 23:36 (144) Physical Exam Const: No acute distress. Head: Atraumatic. Eyes: Normal Conjunctiva. ENT: Normal External Ears, Nose and Mouth. Neck: Full range of motion. No meningismus. Resp: Clear to auscultation bilaterally. Cardio: Regular rate and rhythm. Abd: Soft, non distended, normal bowel sounds, non tender. Skin: No petechiae or rashes. Back: No midline or flank tenderness. scoliosis Ext: No cyanosis, or edema. Neur: Awake and alert. No focal deficit Psych: anxious Results 24 hrs Current Medications Medications Dose Sig/Dorina Start Time Status Last (Trade) Ordered Route PRN Stop Time Admin Dose Reason Admin 1 tab ONCE ONCE 12/06/18 DC 12/06/18 Acetaminophen PO 00:30 00:23 / 12/06/18 00:31 Hydrocodone Bitart ([place] (10/325)) Lisinopril 20 mg ONCE ONCE 12/06/18 DC 12/06/18 (Zestril) PO 00:30 00:47 12/06/18 00:31 Clonazepam 0.5 mg ONCE ONCE 12/06/18 DC (Klonopin) PO 03:00 12/06/18 03:01 Procedures/MDM [place] [address] Radiology Main Line: [phone] DIAGNOSTIC IMAGING REPORT Patient: ELICEO BETHEA : 1960 Age: 58 Sex: F MR #: [id number] DOS: 12/05/18 2337 Ordering MD: DARRYL MCCANN MD Location: E/R Room/Bed: PROCEDURE: XR Ribs. CLINICAL INDICATION: pain TECHNIQUE: Multiple oblique views of the right ribs were obtained. The images were reviewed on a PACS workstation. COMPARISON: None. FINDINGS: The study is significantly limited as the patient was combative. There are several probable old right posterior rib fractures. 1 upper lateral right rib fracture contains a large amount of callus formation. There is not a clearly visualized acute rib fracture. No pneumothorax is seen.. IMPRESSION: Limited evaluation without definite acute fracture or pneumothorax. RPTAT: HLBE Goldie Roy, Physician Date Time Electronically viewed and signed by Goldie Roy, Physician on 12/06/2018 02:43 LE/ CC: DARRYL MCCANN MD [id number] [place] [id number] Radiology Main Line: [phone] DIAGNOSTIC IMAGING REPORT Patient: ELICEO BETHEA : 1960 Age: 58 Sex: F MR #: [id number] DOS: 12/05/18 0000 Ordering MD: DARRYL MCCANN MD Location: E/R Room/Bed: PROCEDURE: XR Chest. CLINICAL INDICATION: Chest pain TECHNIQUE: Portable single view of the chest COMPARISON: SD DX CHEST 05/14/2018; CR CHEST 08/29/2017; CR CHEST 11/09/2016; CR CHEST 10/25/2016 FINDINGS: Again seen is cardiomegaly and mild pulmonary vascular congestion with probable slight interstitial edema. No focal consolidation or pleural effusion is seen. Subsegmental atelectasis is seen at the lung bases. The aortic contour appears somewhat more ectatic and tortuous than on the prior study. Gaseous distension of upper abdominal bowel loops.. IMPRESSION: Probable mild congestive heart failure. The aorta appears somewhat more ectatic and tortuous than on the prior study. If there is clinical suspicion for aortic pathology, CT angiography could be performed.. RPTAT: HLBE Goldie Roy, Physician Date Time Electronically viewed and signed by Goldie Roy, Physician on 12/06/2018 02:41 LE/ CC: DARRYL MCCANN MD [id number] MEDICAL MAKING DECISION: The patient is a 58-year-old female, presenting with acute rib contusion, acute anxiety. She was treated with Norvasc 10 mg p.o. and lisinopril 10 mg p.o. for acute hypertensive urgency and Klonopin 0.5 mg p.o. for acute anxiety with good response. The differential diagnoses considered include but are not limited to pneumonia, pneumothorax, anxiety attack, panic attack, medical noncompliance Departure Diagnosis: Primary Impression: Rib pain Additional Impressions: Hypertensive urgency Acute anxiety Medication refill Condition: Good Comments She was discharged with Norvasc, lisinopril, baclofen for her muscle spasm I discussed the findings with the patient. I advised the patient to follow-up with the primary physician in about 2-3 days, sooner if needed and return if any concern. Disclaimer: Inadvertent spelling and grammatical errors are likely due to EHR/dictation software use and do not reflect on the overall quality of patient care. Also, please note that the electronic time recorded on this note does not necessarily reflect the actual time of the patient encounter. DARRYL MCCANN MD Dec 05, 2018 23:36
[2018-12-06] MEDS ORDERED: LISINOPRIL 20 MG TAB PO ONE (00:30)
[2018-12-06] MEDS ORDERED: HYDROCODONE/APAP (10/325) TAB PO ONE (00:30)
[2018-12-06] MEDS ORDERED: AMLO-218 PO (02:52)
[2018-12-06] MEDS ORDERED: BACL10TA PO (02:53)
[2018-12-06] MEDS ORDERED: LISI-471 PO (02:53)
[2018-12-06] MEDS ORDERED: clonAZEPAM 0.5 MG TAB PO ONE (03:00)
[2018-12-06 04:00] VITALS: BP 149/85; PULSE 85; RESP 19
== END 2018-12-06 06:12 | disposition home or self-care (01) ==
LOC: E/R 23:27
DX: I16.0 Hypertensive urgency (principal); F41.9 Anxiety disorder, unspecified; I10 Essential (primary) hypertension; J44.9 Chronic obstructive pulmonary disease, unspecified; Z76.0 Encounter for issue of repeat prescription
CPT/HCPCS: 71045; 71100; 93005; Z7502; Z7610